=== PATIENT | female | born 1950 | race Caucasian/White ===

== ENCOUNTER 2017-06-04 05:55 | Day surgery (SDC) | payer MEDICARE, SELFPAY ==
[2017-06-04 06:43] VITALS: BP 107/73; PULSE 79; RESP 18; TEMP 36.9; O2SAT 95; BMI 41.8
[2017-06-04 06:55] LABS: Bedside Glucose 131 mg/dL (70-110)
--- NOTE | 2017-06-04 07:25 | PCM.DC.POD ---
Discharge Diet: Light diet - advance as tolerated Discharge Activity: May Not Drive Weight Bearing Status: No weight bearing - No weightbearing right foot Keep extremity elevated above heart level: Right Leg - Keep right foot elevated above chest level for at least 50 minutes of every hour Call your doctor if your incision/area has: Continuous Slow Oozing, Sudden Increased Bleeding, Foul Smelling Discharge Call your doctor if you observe: Fever of 101 or Higher, Coldness, Increased Pain, Shortness of breath, Chest pain, Increased palpitations (irregular heartbeat), Calf discomfort, Uncontrolled pain Cleanse incision/area with: Do not get Incision Wet, Keep Dressing Clean & Dry Allergies/Adverse Reactions: Allergies atropine sulfate [From ] Allergy (Verified 05/28/17 09:39) Rash famotidine [From Pepcid] Allergy (Verified 05/28/17 09:39) Rash hyoscyamine sulfate [From ] Allergy (Verified 05/28/17 09:39) Rash ibuprofen Allergy (Verified 06/04/17 06:41) Rash phenobarbital [From ] Allergy (Verified 05/28/17 09:39) Rash scopolamine hydrobromide [From ] Allergy (Verified 05/28/17 09:39) Rash ketorolac tromethamine [From Toradol] Adverse Reaction (Verified 05/28/17 09:39) Nausea rofecoxib [From Vioxx] Adverse Reaction (Verified 05/28/17 09:39) Nausea tramadol Adverse Reaction (Verified 05/28/17 09:39) Nausea Medications to take at Discharge Glimepiride [Amaryl] 4 mg PO BID 08/28/16 Levothyroxine [Synthroid] 100 mcg PO DAILY 08/28/16 Lisinopril [Zestril] 10 mg PO DAILY 08/28/16 Metformin HCl [Glucophage] 1,000 mg PO BIDCM 08/28/16 Oxycodone HCl/Acetaminophen [Percocet 10-325 mg Tablet] 1 tablet PO BID PRN 08/28/16 Simvastatin [Zocor] 20 mg PO QHS 08/28/16 Sitagliptin Phosphate [Januvia] 100 mg PO DAILY 08/28/16 Albuterol IH (ProAir) [Proair Hfa (SP)Vent Pts] 1 - 2 puff INHALATION Q6H PRN PRN 09/03/16 Fluticasone 110 Mcg [Flovent (SP)] 2 puff INHALATION BID 09/03/16 Pantoprazole Sodium [Protonix] 40 mg PO DAILY 09/03/16 Ferrous Sulfate [Iron] 325 mg PO DAILY 05/28/17 Oxycodone HCl/Acetaminophen [Percocet 5/325] 1 - 2 tab PO Q6H PRN PRN #30 tab 06/04/17 The following prescriptions were given: Oxycodone HCl/Acetaminophen [Percocet 5/325] 1 - 2 tab PO Q6H PRN PRN #30 tab PRN Reason: Pain Primary Care Physician: Luis Molina DO [Primary Care Provider] - Please Follow Up With: Pablo Olson DPM When: within 1 week or sooner if needed
[2017-06-04] MEDS: Cefazolin 2 GM in 0.9% Normal Saline 100 ML IV (07:26)
--- NOTE | 2017-06-04 07:29 | OP.PCM_ITS ---
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 Erica Ndiaye Type of Anesthesia:: Local MAC Specimen's removed: None Estimated Blood Loss (mL): < 1mL Description of Procedure: Indications: This is a 67 year old female with chronic right plantar heel pain at the level of the origin of the plantar fascia and infracalcaneal spur. This has been treated with extensive conservative/nonsurgical management, but she continues to have pain and symptoms. Xrays showed an infracalcaneal spur, and MRI confirmed plantar fasciitis. She continues to have pain which was really bothering her and affecting her daily activities. She has elected to undergo plantar fasciotomy with resection of the infracalcaneal spur. This was discussed with her in great detail, reviewed the possible benefits vs risks and potential complications. Typical post op recovery was reviewed with her. The goals and the expectations were reviewed with her in detail. The consent forms were reviewed with her in detail, and she freely signed them. No guarantees were given. All of her questions were answered. Operative Procedure: The patient was brought back into the operating room and was placed on the operating room table in the supine position. She was carefully secured to the operating room table with a safety belt around the waist. A time out was performed and the patient was properly identified and the surgical plan was confirmed. The patient received 2g of IV Cefazolin for antibiotic prophylaxis. A well padded pneumatic tourniquet was applied around the patient's right ankle. The patient received MAC anesthesia per the anesthesiologist. After the right foot was cleansed with 70% Isopropyl alcohol, 20mL of 0.5% Bupivacaine was given as a local nerve block around heel. The right foot was scrubbed, prepped, draped in the usual aseptic fashion. The right foot was elevated for 3 minutes and the right ankle pneumatic tourniquet was inflated to 250mmHg. The infracalcaneal spur was visualized on intra operative fluoroscopy, image was saved. A skin incision was made to the medial hindfoot at the level of the plantar fascia and infracalcaneal spur, careful dissection was completed down through the subcutaneous tissue layer. A plane was created superiorly and inferiorly around the plantar fascia and the medial 50% of the plantar fascia was released via a plantar fasciotomy. The infracalcaneal spur was felt, and was carefully resected using a powered rasp. Resection of the infracalcaneal spur was confirmed using intraoperative fluoroscopy. Images pre and post infracalcaneal spur resection were saved. The site was flushed out with copious amounts of normal saline solution. The skin was reapproximated using 3-0 Nylon. The pneumatic tourniquet was deflated ( total tourniquet time was 21 minutes), and there was immediate return of warmth and perfusion to the foot and to all toes on the foot with normal temperature gradient and CFT < 2 seconds to all toes. Hemostasis was achieved. A dressing was applied which consisted of Betadine soaked adaptic, 4x4 gauze, Kerlix and pauly bandage, being sure to apply it not to tight. The patient tolerated the above operative procedure well at the anesthesia well with no complication. The patient was transported to the recovery room with vital signs stable and in good condition. Post operative orders were placed. Post operative instructions were reviewed with her as well as with her who was here with her today. No weightbearing right foot, keep right foot elevated for at least 50 minutes of every hour, keep dressing clean, dry and intact. Prescription for Percocet 5mg/325mg was prescribed: 1-2 tabs PO q 6 hours PRN pain for pain control. She is to follow up with me within 1 week or sooner if needed. Grafts/Implants Used: None - Complications None
--- NOTE | 2017-06-04 07:30 | RAD_ITS ---
STUDY: X-RAY - RIGHT CALCANEUS REASON FOR EXAM: Female, 67 years old. Resection heel spur. TECHNIQUE: 1 view(s) of the calcaneus were obtained. COMPARISON: None. FINDINGS: There is mild cortical irregularity at the plantar margin of the posterior calcaneus, and some vague increased density in the adjacent soft tissues, consistent with given history of a plantar spur resection. There is small enthesophyte formation of the posterior superior calcaneus at the site of insertion of the Achilles tendon. No demonstrated acute fracture. RAD/Calcaneus min 2 Views IMPRESSION: Status post resection of plantar calcaneal spur. Electronically Signed: Miky Dotson MD at 12:43 EDT , Service support ,
[2017-06-04] MEDS: Bupivacaine Mpf 0.5% 30 ML VIAL (07:35)
[2017-06-04 08:18] VITALS: BP 107/73; BP 111/76; PULSE 82; RESP 16; TEMP 36.6; O2SAT 94
[2017-06-04 08:20] VITALS: BP 107/73; BP 111/78; PULSE 77; RESP 16; O2SAT 92
[2017-06-04 08:25] VITALS: BP 107/73; BP 113/70; PULSE 78; RESP 16; O2SAT 92
[2017-06-04 08:31] VITALS: BP 107/73; BP 119/80; PULSE 78; RESP 16; TEMP 36; O2SAT 96
[2017-06-04 09:22] VITALS: BP 107/73
== END 2017-06-04 09:24 | disposition home or self-care (01) ==
LOC: SDC 05:56 → AC 05:58
PROVIDERS: Family Provider Student in an Organized Health Care Education/Training Program; PCP Student in an Organized Health Care Education/Training Program; Visit Provider Podiatrist
PROC: (CPT 28119; principal; 2017-06-04 07:15)
DX: M72.2 Plantar fascial fibromatosis (principal); M77.31 Calcaneal spur, right foot; M06.80 Other specified rheumatoid arthritis, unspecified site; I10 Essential (primary) hypertension; J44.9 Chronic obstructive pulmonary disease, unspecified; E03.9 Hypothyroidism, unspecified; G47.33 Obstructive sleep apnea (adult) (pediatric); E78.5 Hyperlipidemia, unspecified; E55.9 Vitamin D deficiency, unspecified; G25.81 Restless legs syndrome; E11.65 Type 2 diabetes mellitus with hyperglycemia; E66.9 Obesity, unspecified; Z79.899 Other long term (current) drug therapy; Z79.84 Long term (current) use of oral hypoglycemic drugs; Z68.38 Body mass index [BMI] 38.0-38.9, adult; Z71.3 Dietary counseling and surveillance
CPT/HCPCS: 01480; 28119; 73650; 76000; 82962; J7120; J2405

== ENCOUNTER → 2017-07-08 18:06 | Outpatient (CLI) | payer MEDICARE, SELFPAY | PROVIDERS: Family Provider Student in an Organized Health Care Education/Training Program; PCP Student in an Organized Health Care Education/Training Program; Visit Provider Podiatrist | DX: L97.419 Non-pressure chronic ulcer of right heel and midfoot with unspecified severity (principal) | CPT/HCPCS: 87070; 87077; 87186; 87205 ==

== ENCOUNTER → 2017-07-09 17:25 | Emergency (ER) | payer MEDICARE, SELFPAY ==
--- NOTE | 2017-07-09 19:30 | RAD_ITS ---
STUDY: X-RAY - RIGHT FOOT CLINICAL: Female, 67 years old. Pain TECHNIQUE: Three view(s) of the foot were obtained. COMPARISON: Intraoperative calcaneus view dated June 04, 2017 FINDINGS: Bones: There is minimal cortical irregularity in the inferior calcaneus. Joints: There are mild degenerative changes in the midfoot. Soft tissues: There is mild soft tissue swelling in the hindfoot. There are faint calcific densities in the soft tissues below the calcaneus. Foreign body: None RAD/Foot min 3 Views IMPRESSION: There is mild cortical irregularity in the mid inferior calcaneus possibly related to the surgery, however osteomyelitis cannot be excluded. There are faint calcific densities in the soft tissues inferior to the calcaneus likely related to the recent surgery. Electronically Signed: Lyudmila Bell MD at 19:51 EDT Tel Direct: [phone], Service support ,
[2017-07-10 00:02] LABS: Probe Check PASS; Staph aureus DNA By PCR POSITIVE (Negative)
[2017-07-10 00:03] LABS: M R Staph aureus DNA By PCR POSITIVE (Negative)
[2017-07-10 01:37] LABS: Anion Gap 8 (5-15); BUN 16 mg/dL (7-18); CRP 3.49 mg/L (0.0-3.0); Calcium,Total 9.2 mg/dL (8.5-10.1); Chloride 103 mmol/L (98-107); Creatinine, Serum 0.84 mg/dL (0.55-1.02); EST Glomerular Filtration Rate 72 mL/min (>60); Est Glom Filt Rate - Afr Amer 87 mL/min (>60); Glucose 131 mg/dL (74-106); Potassium 4.1 mmol/L (3.5-5.1); Sodium Level 140 mmol/L (136-145)
--- NOTE | 2017-07-10 01:59 | ED.VISSUMM ---
- ER Visit Summary Date of Service: 07/10/17 Chief Complaint: Foot wound History of Present Illness: The patient is a 67 F sent in by her assistant professor of life sciences Dr. Olson for evaluation of wound on foot. She is 4 weeks postop on June 04 for plantar fasciitis with spur removal. She seen yesterday in the office, wound was evaluated, there was slightly delayed healing. Her assistant professor of life sciences did call in for discussion. States he had a culture performed of the wound noting gram-positive along with gram-negative findings. Patient called in reporting increasing pain in the foot. Patient denies fever. Patient is a diabetic. Physical Examination: General: Alert and oriented ?3, no acute distress HEENT: Normocephalic, atraumatic. Moist mucosa membranes Neck: supple, nontender. Cardiovascular: Regular rate and rhythm, no murmurs Respiratory: Normal breath sounds, symmetric, no distress Abdomen: Soft, nontender, nondistended Extremities: Right lower extremity: There is a 1 cm ulcer medial aspect of the heel. Mild erythema around this. There is no streaking. Tender to palpation around this region. Neuro: no focal neurological deficits. Test Results: ESR 37, CRP 3 0.49. Right foot x-ray per radiology mild cortical irregularity of the inferior calcaneus possibly related to surgery, however osteomyelitis cannot be excluded. Emergency Department Course and Treatment: Patient nontoxic. Secondary to downtime, delay in labs. Dr. Olson was in the ED to evaluate the patient. Obtain wound cultures. He clean the wound, place a dressing. Patient recommended started on Augmentin and doxycycline for coverage of bacteria found from Gram stain. Patient did not want to wait for CBC. Eventual culture did get called over positive for MRSA. She is on doxycycline. Per radiology read of x-ray irregular irregularity of the calcaneus, patient did have a bone spur removal. Patient will follow-up on Wednesday for outpatient reevaluation. Treatment Plan: [] Disposition: Discharge Impression: Postop wound infection with heel ulcer This note was generated with [employer] dictation software. It may contain incorrect words, spelling, and punctuation that were not noted in review of the chart prior to signing ED Disposition - Plan for ED Patient: Disposition: Home or Assisted Living Diagnosis: Postoperative wound infection, Heel ulcer Referrals: Luis Molina DO [Primary Care Provider] -
--- NOTE | 2017-07-10 02:04 | ED.DCSUM_ITS ---
- ER Visit Summary Date of Service: 07/10/17 Chief Complaint: Foot wound History of Present Illness: The patient is a 67 F sent in by her document control supervisor Dr. Olson for evaluation of wound on foot. She is 4 weeks postop on June 04 for plantar fasciitis with spur removal. She seen yesterday in the office, wound was evaluated, there was slightly delayed healing. Her document control supervisor did call in for discussion. States he had a culture performed of the wound noting gram- positive along with gram-negative findings. Patient called in reporting increasing pain in the foot. Patient denies fever. Patient is a diabetic. Physical Examination: General: Alert and oriented ?3, no acute distress HEENT: Normocephalic, atraumatic. Moist mucosa membranes Neck: supple, nontender. Cardiovascular: Regular rate and rhythm, no murmurs Respiratory: Normal breath sounds, symmetric, no distress Abdomen: Soft, nontender, nondistended Extremities: Right lower extremity: There is a 1 cm ulcer medial aspect of the heel. Mild erythema around this. There is no streaking. Tender to palpation around this region. Neuro: no focal neurological deficits. Test Results: ESR 37, CRP 3 0.49. Right foot x-ray per radiology mild cortical irregularity of the inferior calcaneus possibly related to surgery, however osteomyelitis cannot be excluded. Emergency Department Course and Treatment: Patient nontoxic. Secondary to downtime, delay in labs. Dr. Olson was in the ED to evaluate the patient. Obtain wound cultures. He clean the wound, place a dressing. Patient recommended started on Augmentin and doxycycline for coverage of bacteria found from Gram stain. Patient did not want to wait for CBC. Eventual culture did get called over positive for MRSA. She is on doxycycline. Per radiology read of x-ray irregular irregularity of the calcaneus, patient did have a bone spur removal. Patient will follow-up on Wednesday for outpatient reevaluation. Treatment Plan: [] Disposition: Discharge Impression: Postop wound infection with heel ulcer This note was generated with [employer] dictation software. It may contain incorrect words, spelling, and punctuation that were not noted in review of the chart prior to signing ED Disposition - Plan for ED Patient: Disposition: Home or Assisted Living Diagnosis: Postoperative wound infection, Heel ulcer Referrals: Luis Molina DO [Primary Care Provider] -
== END | disposition home or self-care (01) ==
PROVIDERS: Emergency Provider Emergency Medicine; Family Provider Student in an Organized Health Care Education/Training Program; PCP Student in an Organized Health Care Education/Training Program
DX: T81.4XXA Infection following a procedure, initial encounter (principal); L97.419 Non-pressure chronic ulcer of right heel and midfoot with unspecified severity; J45.909 Unspecified asthma, uncomplicated; E11.9 Type 2 diabetes mellitus without complications; G47.33 Obstructive sleep apnea (adult) (pediatric); Z90.89 Acquired absence of other organs; Z90.49 Acquired absence of other specified parts of digestive tract; Z90.710 Acquired absence of both cervix and uterus; Z79.84 Long term (current) use of oral hypoglycemic drugs; Z79.899 Other long term (current) drug therapy
CPT/HCPCS: 36415; 73630; 80048; 85652; 86140; 87040; 87070; 87075; 87077; 87186; 87205; 87640; 99284; A4216

== ENCOUNTER 2018-06-22 18:38 | Inpatient (IN) | payer MEDICARE, SELFPAY ==
[2018-06-22 18:39] VITALS: BP 155/100; PULSE 126; RESP 22; TEMP 36.9; O2SAT 96; BMI 39.2
--- NOTE | 2018-06-22 19:33 | CT_ITS ---
STUDY: CT ABDOMEN AND PELVIS WITHOUT CONTRAST REASON FOR EXAM: Female, 68 years old. Lower abdominal pain. RADIATION DOSAGE (If Supplied By Facility): CTDIvol = ( 28.26 ) mGy, DLP = ( 1475.48 ) mGycm TECHNIQUE: Transaxial images were obtained from the dome of the diaphragm to the symphysis pubis without oral contrast, and without intravenous contrast. Sagittal and coronal images were reconstructed. Individualized dose optimization techniques were used for this CT. COMPARISON: None. FINDINGS: There are bibasilar granulomas. There are coronary artery calcifications present. Normal liver. There is non-visualization of the gallbladder, which may be secondary to either contraction or a prior cholecystectomy. There are splenic granulomas. Normal pancreas. Normal bilateral adrenal glands. Normal right kidney. Normal left kidney. There is a small hiatal hernia. Normal small intestine. There is diverticulosis, with thickening of the descending colon wall, and pericolonic inflammation changes consistent with acute diverticulitis. There are foci of extraluminal air along the lateral aspect of the descending colon. No pericolonic abscesses are visualized. The appendix is visualized and appears normal. Normal abdominal aorta. Normal inferior vena cava. Normal retroperitoneum. Normal urinary bladder. Normal abdominal wall. There are diffuse degenerative changes of the visualized lumbar spine. CT/Abdomen/Pelvis without Cont IMPRESSION: Acute diverticulitis of the descending colon associated with extraluminal air consistent with bowel perforation. There is no associated abscess. Hiatal hernia. Atherosclerosis. N.B. : The above information has been verbally conveyed by Rabia Mckinney MD to Dr. Starla Cartwright MD, on 06/22/2018 20:34:36 (ET). Electronically Signed: Rabia Mckinney MD at 20:35 EDT Tel , Service support ,
[2018-06-22] MEDS: Ondansetron 4 MG/2 ML Vial IV (19:45)
[2018-06-22] MEDS: Morphine 4 MG/ML Syringe IV ×2 (19:47→23:42)
[2018-06-22] MEDS: 0.9% Normal Saline 1,000 ML 125 ML IV (19:48)
[2018-06-22 20:09] LABS: Anion Gap 8 (5-15); BUN 17 mg/dL (7-18); BUN/Creat Ratio 21.5 RATIO (10-20); Calcium,Total 9.4 mg/dL (8.5-10.1); Chloride 106 mmol/L (98-107); Creatinine, Serum 0.79 mg/dL (0.55-1.02); EST Glomerular Filtration Rate 76 mL/min (>60); Est Glom Filt Rate - Afr Amer 93 mL/min (>60); Estimated Creatinine Clearance 40.07 ml/min; Glucose 166 mg/dL (74-106); Sodium Level 139 mmol/L (136-145)
[2018-06-22 20:25] LABS: Absolute Lymphocyte Count 2.32 X10^3/ul (0.83-4.51); Absolute Neutrophil Count 16.9 X10^3/uL (2.0-7.7); Basophil# 0.02 X10^3/uL; Basophil% 0.1 % (0-1); Eosinophil# 1.05 X10^3/uL; Eosinophils% 4.9 % (0-5); Hematocrit 40.2 % (37-47); Hemoglobin 12.8 g/dl (12.0-15.0); Lymphocyte # 2.32 X10^3/ul (4.0); Lymphocyte % 10.8 % (19-41); Mean Corp Hgb Conc 31.8 g/gl (32-36); Mean Corpuscular Hgb 27.1 pg (27.0-32.0); Mean Platelet Vol. 12.2 fl (6.2-12.0); Monocyte% 5.6 % (0-10); Neutrophil # 16.86 X10^3/uL (2.7-7.7); Neutrophil % 78.4 % (47-70); Platelet Count 221 K/mm3 (150-450); RBC Distribution Width CV 14.8 % (11.6-14.6); RBC Distribution Width SD 45.8 fl (35.1-43.9); Red Blood Count 4.73 M/mm3 (4.2-5.4); White Blood Count 21.5 K/mm3 (4.4-11.0)
[2018-06-22 20:28] LABS: Differential Indicated SCAN CRITERIA MET; POSITIVE COUNT NO; POSITIVE DIFFERENTIAL NO; POSITIVE MORPHOLOGY YES
[2018-06-22 20:35] LABS: Lactic Acid 2.4 mmol/L (0.4-2.0)
--- NOTE | 2018-06-22 20:35 | ED.RN ---
lab called with critical lab results. Lactic acid 2.1. Dr. Cartwright made aware at this time
[2018-06-22 20:41] LABS: Platelet Estimate ADEQUATE (ADEQ); Red Cell Morphology NORM C+C NORMAL (NORM C&C)
[2018-06-22] MEDS: HYDROmorphone 1 MG/ML Syringe IV (20:51)
[2018-06-22 20:55] VITALS: BP 134/84
--- NOTE | 2018-06-22 21:11 | ED.DCSUM_ITS ---
- ER Visit Summary Date of Service: 06/22/18 Chief Complaint: [Abdominal pain] History of Present Illness: The patient is a 68 F [presents with abdominal pain that started around 2 PM today. Patient states the pain is continuous and rates it as a 10 out of 10. Patient had nausea but no vomiting. Patient's last bowel movement was 2 days ago. Patient denies any fever. She denies urinary symptoms. She denies chest pain. Patient does have a history of diabetes, hypertension, and hypothyroidism. Past surgical history includes appendectomy, cholecystectomy, hysterectomy, right lung surgery, bilateral knee replacements.] Physical Examination: [HEENT-PERRLA, EOMI. Cranial nerves II through XII grossly intact. TMs clear. Mucous membranes moist. No adenopathy. Cardiovascular-regular rate and rhythm without murmur or ectopy Lungs-clear to auscultation, chest wall stable without crepitus or subcu emphysema Abdomen-normoactive bowel sounds, soft. Patient has diffuse tenderness palpation over the lower abdomen with especially left lower quadrant with guarding. There is no rebound, rigidity, or perineal signs. Extremities-intact ?4, normal range of motion, normal pulses, atraumatic] Test Results: [CBC with differential showed a white count of 21.5, hemoglobin 12.8, hematocrit 40, placed 221. Chemistries are unremarkable. Lactate was 2.1. CT scan of the abdomen pelvis showed acute diverticulitis of the descending colon with extraluminal air consistent with colonic perforation.] Emergency Department Course and Treatment: [Case will be discussed with surgeon on-call Dr. Eliel Arias as well as with hospitalist. Patient was started on IV Cipro and Flagyl. Patient was medicated initially with morphine and Zofran and then was given a milligram of Dilaudid IV.] Treatment Plan: [Admit.] Disposition: [Admit] Impression: [Acute diverticulitis of the descending colon with microperforation] This note was generated with [employer] dictation software. It may contain incorrect words, spelling, and punctuation that were not noted in review of the chart prior to signing ED Disposition - Plan for ED Patient: Referrals: Luis Molina DO [Primary Care Provider] -
[2018-06-22] MEDS: Ciprofloxacin 400 MG/200 ML BAG 200 MG IV (21:14)
[2018-06-22 21:17] VITALS: O2SAT 89
[2018-06-22 21:18] VITALS: O2SAT 94
--- NOTE | 2018-06-22 21:35 | HP.PCM_ITS ---
Problem List (1) Perforation of sigmoid colon due to diverticulitis Status: Acute (2) COPD (chronic obstructive pulmonary disease) Status: Chronic Qualifiers: COPD type: unspecified COPD Qualified Code(s): J44.9 - Chronic obstructive pulmonary disease, unspecified (3) Obesity Status: Acute Qualifiers: Obesity type: due to excess calories Serious obesity comorbidity presence: unspecified whether serious comorbidity present (4) Diabetes mellitus type 2 in obese Status: Acute History of Present Illness Date of Admission: 06/22/18 The patient is a 68 year old F who presents to the emergency room with acute severe onset of left mid abdominal pain. This occurred approximately 2 PM. She denies any previous episode of diverticulitis. She states that within the past couple year she had a colonoscopy which was unremarkable. On her evaluation her white blood cell count is 21.5 with a hemoglobin 12.8 hematocrit 40.2 and platelet count of 221,000. 78% neutrophils. BUN is 17 and creatinine 0.79. Lactic acid is 2.4. Glucose is elevated at 166. A noncontrasted CT scan was obtained through the ER. Acute diverticulitis of the descending colon associated with external air consistent with perforation no associated abscess was noted. Hiatal hernia and atherosclerosis noted. I was asked to provide surgical care of the patient. She has had a previous hysterectomy through a Pfannenstiel incision. She has had previous appendectomy and cholecystectomy. She has had other orthopedic procedures as noted. Her last bowel movement was 2 days ago. She denies bright red blood per rectum or melena. She has not had any nausea or vomiting. Since receiving IV medication she is feeling improved. Past Medical History Past Medical History (Chronic Problems): Chronic Problems COPD (chronic obstructive pulmonary disease) (Chronic) Allergies atropine sulfate [From ] Allergy (Verified 06/22/18 18:41) Rash famotidine [From Pepcid] Allergy (Verified 06/22/18 18:41) Rash hyoscyamine sulfate [From ] Allergy (Verified 06/22/18 18:41) Rash ibuprofen Allergy (Verified 06/22/18 18:41) Rash phenobarbital [From ] Allergy (Verified 06/22/18 18:41) Rash scopolamine hydrobromide [From ] Allergy (Verified 06/22/18 18:41) Rash ketorolac tromethamine [From Toradol] Adverse Reaction (Verified 06/22/18 18:41) Nausea rofecoxib [From Vioxx] Adverse Reaction (Verified 06/22/18 18:41) Nausea tramadol Adverse Reaction (Verified 06/22/18 18:41) Nausea Home Medications: Ambulatory Orders Medication Instructions Recorded Glimepiride [Amaryl] 4 mg PO BID 08/28/16 Levothyroxine [Synthroid] 100 mcg PO DAILY 08/28/16 Lisinopril [Zestril] 10 mg PO DAILY 08/28/16 Metformin HCl [Glucophage] 1,000 mg PO BIDCM 08/28/16 Oxycodone HCl/Acetaminophen 1 tablet PO BID PRN 08/28/16 [Percocet 10-325 mg Tablet] Simvastatin [Zocor] 20 mg PO QHS 08/28/16 Sitagliptin Phosphate [Januvia] 100 mg PO DAILY 08/28/16 Albuterol IH (ProAir) [Proair Hfa 1 - 2 puff INHALATION Q6H PRN PRN 09/03/16 (SP)Vent Pts] Fluticasone 110 Mcg [Flovent (SP)] 2 puff INHALATION BID 09/03/16 Pantoprazole Sodium [Protonix] 40 mg PO DAILY 09/03/16 Ferrous Sulfate [Iron] 325 mg PO DAILY 05/28/17 Surgical History: appendectomy, cholecystectomy, hysterectomy, total hip arthroplasty, total knee arthroplasty, - - Subtotal thyroidectomy Smoking Status: Never smoker Tobacco Use: Non-smoker Alcohol: None Drugs: None Review of Systems Constitutional: Reports: Anorexia HEENT: Denies: Difficulty Swallowing Cardiovascular: Denies: Chest Pain Respiratory: Denies: Cough Gastrointestinal: Denies: Nausea, Vomiting Endocrine: Denies: Change in Body Habitus VTE Information - Inpt Only VTE Present on Admission: No Patient Problems: Active and Suspected Problems Perforation of sigmoid colon due to diverticulitis (Acute) Obesity (Acute) Diabetes mellitus type 2 in obese (Acute) - Physical Exam General: Alert, Oriented x3, Cooperative, No apparent distress HEENT: Atraumatic Oral: Moist Mucosa Neck: Supple, Negative Carotid Bruits Lungs: Clear to auscultation, Normal air movement Cardiovascular: Regular rate, Regular Rhythm Abdomen: Soft, Bowel Sounds Not Present, Tender - Notable tenderness even light palpation left mid abdomen with guarding and rebound, - - Obese Extremities: No Calf Tenderness Skin: No rashes Lymphatic: No Cervical, Supraclavicular, or Inguinal Adenopathy Psych/Mental Status: Normal Affect Vital Signs Temp Pulse Resp BP Pulse Ox 98.4 F 126 H 22 H 134/84 H 94 06/22/18 18:39 06/22/18 18:39 06/22/18 18:39 06/22/18 20:55 06/22/18 21:18 Oxygen Flow Rate (L/min) 2 Oxygen Delivery Method Nasal Cannula Weight: 207 lb 14.334 oz Body Mass Index (BMI) 39.2 Laboratory Tests Past 24 Hrs 06/22/18 06/22/18 06/22/18 19:30 19:30 19:47 WBC 21.5 H RBC 4.73 Hgb 12.8 Hct 40.2 MCV 85.0 MCH 27.1 MCHC 31.8 L RDW 14.8 H RDW Differential 45.8 H Plt Count 221 MPV 12.2 H Immature Gran % (Auto) 0.200 Neut % (Auto) 78.4 H Lymph % (Auto) 10.8 L [place] % (Auto) 5.6 Eos % (Auto) 4.9 Baso % (Auto) 0.1 Absolute Neuts (auto) 16.9 H Absolute Lymphs (auto) 2.32 Total Counted Not Reportable Diff Path Review May foll Platelet Estimate ADEQUATE RBC Morphology NORM C+C Sodium 139 Potassium 4.0 Chloride 106 Carbon Dioxide 25.0 Anion Gap 8 BUN 17 Creatinine 0.79 Estim Creat Clear Calc 40.07 Est GFR (MDRD) Af Amer 93 Est GFR (MDRD) Non-Af 76 BUN/Creatinine Ratio 21.5 H Glucose 166 H Lactic Acid 2.4 H Calcium 9.4 Assessment/Plan All Active Problems Perforation of sigmoid colon due to diverticulitis (Acute) Obesity (Acute) Diabetes mellitus type 2 in obese (Acute) I am recommending that the patient undergo medical care for microperforation of the descending colon secondary to diverticulitis. Patient will be kept n.p.o. Encourage mobilization. Appropriate antibiotics. She has already been placed on oxygen by emergency room staff. She would need attention to her COPD and to her diabetes. I anticipate serial surgical examination and repeat laboratory in the morning. Eliel Arias M.D., F.A.C.S.
--- NOTE | 2018-06-22 22:54 | EKG12_ITS ---
Test Reason : SOB Blood Pressure : / mmHG Vent. Rate : 100 BPM Atrial Rate : 100 BPM P-R Int : 148 ms QRS Dur : 088 ms QT Int : 350 ms P-R-T Axes : 065 013 016 degrees QTc Int : 451 ms Normal sinus rhythm Normal ECG When compared with ECG of 28-AUG-2016 11:35, No significant change was found Confirmed by SAMPSON ROBERTS, LEIGHANN ([id number]), dictionary editor MERRICK HERNANDEZ ([id number]) on 07/04/2018 5:24:54 PM Referred By: Eliel Arias Confirmed By:LEIGHANN BRADEN MD
[2018-06-22 23:00] VITALS: BMI 39.4
[2018-06-22 23:03] VITALS: BP 126/80; PULSE 108; RESP 18; TEMP 36.9; O2SAT 94
[2018-06-22 23:10] LABS: Bedside Glucose 200 mg/dL (70-110)
[2018-06-22 23:14] VITALS: BMI 39.4
[2018-06-22] MEDS: 0.9% NaCl Peripheral Flush Adult/Peds IV (23:35)
[2018-06-22] MEDS: Lactated Ringers 1,000 ML 125 ML IV (23:35)
[2018-06-22 23:54] LABS: Reflex Lactate? Y
[2018-06-23] VITALS (7 sets, daily range): BP systolic 97–121; BP diastolic 56–77; PULSE 92–99; RESP 14–18; TEMP 36.4–37.1; O2SAT 91–96
[2018-06-23 00:39] LABS: Lactic Acid 1.7 mmol/L (0.4-2.0)
[2018-06-23 01:33] LABS: Bacteria 0 SEEN /hpf (None Seen); Mucous, Urine 0 SEEN /hpf (<or=2+); Red Blood Cells-Urine 0 SEEN /hpf (0-5)
[2018-06-23 01:34] LABS: Color, Urine Yellow (Yellow); Glucose, Dipstick Normal (Normal); Ketone-Dipstick Negative (Negative); Leukocyte Esterase-Dipstick 25 /ul (Negative); Nitrite-Dipstick Negative (Negative); Occult Blood-Urine Negative /ul (Negative); Protein-Dipstick Negative (Negative); Specific Gravity, Urine 1.025 (1.002-1.030); Urine Bilirubin Dipstick Negative (Negative); Urine Clarity Sl. Cloudy (Clear); Urine Urobilinogen Normal (Normal)
[2018-06-23 01:49] LABS: Squamous Epithelial Cells - UA 0-5 SEEN /hpf (5-10); Transitional Epithelial - Ur 0 SEEN /hpf (0-5); White Blood Cells 0-5 SEEN /hpf (0-5)
[2018-06-23] MEDS: Morphine 4 MG/ML Syringe IV ×3 (04:53→09:50)
[2018-06-23 05:57] LABS: Basophil# 0.01 X10^3/uL; Basophil% 0.1 % (0-1); Eosinophil# 0.53 X10^3/uL; Eosinophils% 3.6 % (0-5); Hematocrit 36.2 % (37-47); Hemoglobin 11.2 g/dl (12.0-15.0); Lymphocyte % 12.8 % (19-41); Mean Corp Hgb Conc 30.9 g/gl (32-36); Mean Corpuscular Hgb 26.2 pg (27.0-32.0); Mean Corpuscular Volume 84.6 fL (81-99); Mean Platelet Vol. 11.8 fl (6.2-12.0); Monocyte% 8.8 % (0-10); Neutrophil % 74.4 % (47-70); Platelet Count 181 K/mm3 (150-450); RBC Distribution Width CV 14.9 % (11.6-14.6); RBC Distribution Width SD 45.5 fl (35.1-43.9); Red Blood Count 4.28 M/mm3 (4.2-5.4); White Blood Count 14.8 K/mm3 (4.4-11.0)
[2018-06-23 06:09] LABS: POSITIVE COUNT NO; POSITIVE DIFFERENTIAL NO; POSITIVE MORPHOLOGY NO
[2018-06-23] MEDS: Levothyroxine 100 MCG Tablet PO (06:14)
--- NOTE | 2018-06-23 06:14 | PCM.PN.SRG ---
Patient Problems: Active and Suspected Problems Perforation of sigmoid colon due to diverticulitis (Acute) Obesity (Acute) Diabetes mellitus type 2 in obese (Acute) Subjective: Pt has not been OOB. States she feels her abdomen pushing up on her lungs States abdominal pain slightly improved - Physical Exam General: Alert, Oriented x3 Lungs: Diminished - in bases Abdomen: Soft, Obese, Tender - left mid abdomen Non specific BS Vital Signs Temp Pulse Resp BP Pulse Ox 98.4 F 99 18 121/76 H 95 06/23/18 04:55 06/23/18 04:55 06/23/18 04:55 06/23/18 04:55 06/23/18 04:55 Oxygen Flow Rate (L/min) 2 Oxygen Delivery Method Room Air Weight: 208 lb 12.444 oz Body Mass Index (BMI) 39.4 Laboratory Tests Past 24 Hrs 06/22/18 06/22/18 06/22/18 19:30 19:30 19:47 WBC 21.5 H RBC 4.73 Hgb 12.8 Hct 40.2 MCV 85.0 MCH 27.1 MCHC 31.8 L RDW 14.8 H RDW Differential 45.8 H Plt Count 221 MPV 12.2 H Immature Gran % (Auto) 0.200 Neut % (Auto) 78.4 H Lymph % (Auto) 10.8 L [place] % (Auto) 5.6 Eos % (Auto) 4.9 Baso % (Auto) 0.1 Absolute Neuts (auto) 16.9 H Absolute Lymphs (auto) 2.32 Total Counted Not Reportable Diff Path Review May foll Platelet Estimate ADEQUATE RBC Morphology NORM C+C Sodium 139 Potassium 4.0 Chloride 106 Carbon Dioxide 25.0 Anion Gap 8 BUN 17 Creatinine 0.79 Estim Creat Clear Calc 40.07 Est GFR (MDRD) Af Amer 93 Est GFR (MDRD) Non-Af 76 BUN/Creatinine Ratio 21.5 H Glucose 166 H Lactic Acid 2.4 H Calcium 9.4 Urine Color Urine Clarity Urine pH Ur Specific [place] Urine Protein Urine Glucose (UA) Urine Ketones Urine Occult Blood Urine Nitrite Urine Bilirubin Urine Urobilinogen Ur Leukocyte Esterase Urine RBC Urine WBC Ur Squamous Epith Cells Ur Transition Epith Cell Urine Bacteria Urine Mucus 06/23/18 06/23/18 06/23/18 00:09 01:23 05:42 WBC 14.8 H RBC 4.28 Hgb 11.2 L Hct 36.2 L MCV 84.6 MCH 26.2 L MCHC 30.9 L RDW 14.9 H RDW Differential 45.5 H Plt Count 181 MPV 11.8 Immature Gran % (Auto) 0.300 Neut % (Auto) 74.4 H Lymph % (Auto) 12.8 L [place] % (Auto) 8.8 Eos % (Auto) 3.6 Baso % (Auto) 0.1 Absolute Neuts (auto) 11.0 H Absolute Lymphs (auto) 1.90 Total Counted Not Reportable Diff Path Review Platelet Estimate RBC Morphology Sodium Potassium Chloride Carbon Dioxide Anion Gap BUN Creatinine Estim Creat Clear Calc Est GFR (MDRD) Af Amer Est GFR (MDRD) Non-Af BUN/Creatinine Ratio Glucose Lactic Acid 1.7 Calcium Urine Color Yellow Urine Clarity Sl. Cloudy Urine pH 5.0 Ur Specific [place] 1.025 Urine Protein Negative Urine Glucose (UA) Normal Urine Ketones Negative Urine Occult Blood Negative Urine Nitrite Negative Urine Bilirubin Negative Urine Urobilinogen Normal Ur Leukocyte Esterase 25 H Urine RBC 0 SEEN Urine WBC 0-5 SEEN Ur Squamous Epith Cells 0-5 SEEN Ur Transition Epith Cell 0 SEEN Urine Bacteria 0 SEEN Urine Mucus 0 SEEN 06/23/18 05:42 WBC RBC Hgb Hct MCV MCH MCHC RDW RDW Differential Plt Count MPV Immature Gran % (Auto) Neut % (Auto) Lymph % (Auto) [place] % (Auto) Eos % (Auto) Baso % (Auto) Absolute Neuts (auto) Absolute Lymphs (auto) Total Counted Diff Path Review Platelet Estimate RBC Morphology Sodium Pending Potassium Pending Chloride Pending Carbon Dioxide Pending Anion Gap Pending BUN Pending Creatinine Pending Estim Creat Clear Calc Est GFR (MDRD) Af Amer Pending Est GFR (MDRD) Non-Af Pending BUN/Creatinine Ratio Pending Glucose Pending Lactic Acid Calcium Pending Urine Color Urine Clarity Urine pH Ur Specific [place] Urine Protein Urine Glucose (UA) Urine Ketones Urine Occult Blood Urine Nitrite Urine Bilirubin Urine Urobilinogen Ur Leukocyte Esterase Urine RBC Urine WBC Ur Squamous Epith Cells Ur Transition Epith Cell Urine Bacteria Urine Mucus POC Glucose 06/22/18 23:02 POC Glucose 200 H Medical Necessity - Tobacco Use Smoking Status: Never smoker Tobacco Use: Non-smoker Assessment/Plan All Active Problems Perforation of sigmoid colon due to diverticulitis (Acute) Obesity (Acute) Diabetes mellitus type 2 in obese (Acute) Needs to mobilize Labs pending Will need to check on hospitalist consult to have been placed by Dr Singh
[2018-06-23 06:16] LABS: Anion Gap 6 (5-15); BUN 14 mg/dL (7-18); BUN/Creat Ratio 18.6 RATIO (10-20); Calcium,Total 8.7 mg/dL (8.5-10.1); Chloride 106 mmol/L (98-107); Creatinine, Serum 0.75 mg/dL (0.55-1.02); EST Glomerular Filtration Rate 81 mL/min (>60); Est Glom Filt Rate - Afr Amer 98 mL/min (>60); Estimated Creatinine Clearance 40.07 ml/min; Glucose 175 mg/dL (74-106); Potassium 4.1 mmol/L (3.5-5.1); Sodium Level 139 mmol/L (136-145)
[2018-06-23 06:35] LABS: Bedside Glucose 168 mg/dL (70-110)
[2018-06-23] MEDS: Budesonide Respules 0.5 MG/2 ML AMPUL.NEB. INHALATION ×2 (06:50→19:39)
[2018-06-23] MEDS: 0.9% NaCl Peripheral Flush Adult/Peds IV ×2 (06:52→14:26)
[2018-06-23] MEDS: Lactated Ringers 1,000 ML 80 ML IV ×2 (07:46→20:54)
[2018-06-23] MEDS: Pantoprazole Sodium 40 MG Tablet PO (09:50)
[2018-06-23] MEDS: Lisinopril 10 MG Tablet PO (09:50)
[2018-06-23 11:22] LABS: Pathologist Review Reviewed
[2018-06-23 12:45] LABS: Bedside Glucose 126 mg/dL (70-110)
--- NOTE | 2018-06-23 12:49 | PCM.PN.HOSP ---
Patient Problems: Active and Suspected Problems Perforation of sigmoid colon due to diverticulitis (Acute) Obesity (Acute) Diabetes mellitus type 2 in obese (Acute) Subjective: 68-year-old female with a history of COPD, DM 2, GERD, HTN, HLD presenting with left-sided abdominal pain that started 2 PM yesterday, her last colonoscopy was 2 years ago. She did have a leukocytosis as well as lactic acid of 2.4 on admission and in the ER CT scan was obtained that showed acute diverticulitis of the descending colon with an external air consistent with perforation. She states that she is feeling better and currently not an operative candidate for microperforation will be managed medically. Medicine was consulted to assist managing with her COPD and her diabetes. Is feeling much better, her pain is fairly well controlled and she is able to ambulate fairly well. Vitals/I&O's: Vital Signs Temp Pulse Resp BP Pulse Ox 98.8 F 97 18 106/77 96 06/23/18 09:45 06/23/18 09:45 06/23/18 09:45 06/23/18 09:45 06/23/18 09:45 Oxygen Flow Rate (L/min) 2 Oxygen Delivery Method Room Air Weight: 208 lb 12.444 oz Body Mass Index (BMI) 39.4 Intake and Output for Last 24 Hours 06/21/18 06/22/18 06/23/18 23:59 23:59 23:59 Intake Total 1027 / 1027 Output Total 800 / 800 Balance 227 / 227 General: Alert, Oriented x3, Cooperative, No apparent distress HEENT: Atraumatic, PERRLA, EOMI, Normocephalic Oral: Moist Mucosa Neck: Supple, No JVD, Trachea Midline Lungs: Clear to auscultation, Normal air movement, No rhonchi, No wheeze, No rales Cardiovascular: Regular rate, Regular Rhythm, Normal S1, Normal S2, No murmurs Abdomen: Soft, Non-Distended, No Hepato-splenomegaly, Obese, Tender - Mild on the left Extremities: No edema, Capillary Refill Less than 3 Seconds Skin: No rashes, No breakdown Neurological: Neuro grossly intact, Sensory exam intact to light touch and pain Psych/Mental Status: Normal Affect, Appropriate Laboratory Results 06/22/18 19:30: WBC 21.5 H, RBC 4.73, Hgb 12.8, Hct 40.2, MCV 85.0, MCH 27.1, MCHC 31.8 L, RDW 14.8 H, RDW Differential 45.8 H, Plt Count 221, MPV 12.2 H, Immature Gran % (Auto) 0.200, Neut % (Auto) 78.4 H, Lymph % (Auto) 10.8 L, [place] % (Auto) 5.6, Eos % (Auto) 4.9, Baso % (Auto) 0.1, Absolute Neuts (auto) 16.9 H, Absolute Lymphs (auto) 2.32, Total Counted Not Reportable, Diff Path Review Reviewed, Platelet Estimate ADEQUATE, RBC Morphology NORM C+C 06/22/18 19:30: Sodium 139, Potassium 4.0, Chloride 106, Carbon Dioxide 25.0, Anion Gap 8, BUN 17, Creatinine 0.79, Estim Creat Clear Calc 40.07, Est GFR (MDRD) Af Amer 93, Est GFR (MDRD) Non-Af 76, BUN/Creatinine Ratio 21.5 H, Glucose 166 H, Calcium 9.4 06/22/18 19:47: Lactic Acid 2.4 H 06/22/18 23:02: POC Glucose 200 H 06/23/18 00:09: Lactic Acid 1.7 06/23/18 01:23: Urine Color Yellow, Urine Clarity Sl. Cloudy, Urine pH 5.0, Ur Specific [place] 1.025, Urine Protein Negative, Urine Glucose (UA) Normal, Urine Ketones Negative, Urine Occult Blood Negative, Urine Nitrite Negative, Urine Bilirubin Negative, Urine Urobilinogen Normal, Ur Leukocyte Esterase 25 H, Urine RBC 0 SEEN, Urine WBC 0-5 SEEN, Ur Squamous Epith Cells 0-5 SEEN, Ur Transition Epith Cell 0 SEEN, Urine Bacteria 0 SEEN, Urine Mucus 0 SEEN 06/23/18 05:42: WBC 14.8 H, RBC 4.28, Hgb 11.2 L, Hct 36.2 L, MCV 84.6, MCH 26.2 L, MCHC 30.9 L, RDW 14.9 H, RDW Differential 45.5 H, Plt Count 181, MPV 11.8, Immature Gran % (Auto) 0.300, Neut % (Auto) 74.4 H, Lymph % (Auto) 12.8 L, [place] % (Auto) 8.8, Eos % (Auto) 3.6, Baso % (Auto) 0.1, Absolute Neuts (auto) 11.0 H, Absolute Lymphs (auto) 1.90, Total Counted Not Reportable 06/23/18 05:42: Sodium 139, Potassium 4.1, Chloride 106, Carbon Dioxide 27.0, Anion Gap 6, BUN 14, Creatinine 0.75, Estim Creat Clear Calc 40.07, Est GFR (MDRD) Af Amer 98, Est GFR (MDRD) Non-Af 81, BUN/Creatinine Ratio 18.6, Glucose 175 H, Calcium 8.7 06/23/18 06:25: POC Glucose 168 H 06/23/18 12:02: POC Glucose 126 H Current Medications Acetaminophen (Tylenol) 650 mg PO Q6H PRN PRN PRN Reason: PAIN Albuterol Sulfate (Ventolin Aerosols) 2.5 mg INHALATION Q4H PRN PRN PRN Reason: COPD Atorvastatin Calcium (Lipitor) 10 mg PO QHS [facility] Last Admin: 06/22/18 23:35 Dose: Not Given Budesonide (Pulmicort Aerosol) 0.5 mg INHALATION Q12H.RT [facility] Last Admin: 06/23/18 06:50 Dose: 0.5 mg Piperacillin Sod/Tazobactam (Sod 3.375 gm/ Sodium Chloride) 50 mls @ 12.5 mls/hr IV Q8 [facility] Last Admin: 06/23/18 06:14 Dose: 12.5 mls/hr Sodium Chloride () 250 mls @ 15 mls/hr IV .[id number] PRN PRN Reason: SALINE FLUSH Lactated Ringer's () 1,000 mls @ 80 mls/hr IV .[id number] [facility] Last Admin: 06/23/18 07:46 Dose: 80 mls/hr Levothyroxine Sodium (Synthroid) 100 mcg PO DAILY@0600 [facility] Last Admin: 06/23/18 06:14 Dose: 100 mcg Lisinopril (Zestril) 10 mg PO DAILY [facility] Last Admin: 06/23/18 09:50 Dose: 10 mg Morphine Sulfate () 2 - 4 mg IV Q2H PRN PRN PRN Reason: PAIN Morphine Sulfate () 2 - 4 mg IV Q2H PRN PRN PRN Reason: PAIN Last Admin: 06/23/18 09:50 Dose: 4 mg Ondansetron HCl (Zofran) 4 mg IV Q8H PRN PRN PRN Reason: nausea Pantoprazole Sodium (Protonix) 40 mg PO DAILY [facility] Last Admin: 06/23/18 09:50 Dose: 40 mg Sodium Chloride () 5 - 15 ml IV UD PRN PRN Reason: SALINE FLUSH Last Admin: 06/23/18 06:52 Dose: 10 ml Medical Necessity - Tobacco Use Smoking Status: Never smoker Tobacco Use: Non-smoker Assessment/Plan All Active Problems Perforation of sigmoid colon due to diverticulitis (Acute) Obesity (Acute) Diabetes mellitus type 2 in obese (Acute) 1. Acute diverticulitis with microperforation -Continue pain medication as well as Zosyn per primary -We will continue to monitor with low threshold for surgical intervention -LR at 80 cc/h 2. COPD -Does not be currently in exacerbation -We will continue to monitor and continue with her home inhalers 3. DM 2 -She is currently n.p.o., -will hold her metformin, Januvia and her glimepiride -place her on sliding scale insulin with Accu-Cheks every 4 while n.p.o. 4. Hypothyroidism -Stable -Continue with Synthroid 5. GERD -Stable -Continue with PPI 6. HTN/HLD -Blood pressure is stable -Continue with lisinopril, and simvastatin. DVT: SCDs Code Visit Inpatient E&M: 44713 Subs Hosp L3
--- NOTE | 2018-06-23 12:56 | PN_ITS ---
Patient Problems: Active and Suspected Problems Perforation of sigmoid colon due to diverticulitis (Acute) Obesity (Acute) Diabetes mellitus type 2 in obese (Acute) Subjective: 68-year-old female with a history of COPD, DM 2, GERD, HTN, HLD presenting with left-sided abdominal pain that started 2 PM yesterday, her last colonoscopy was 2 years ago. She did have a leukocytosis as well as lactic acid of 2.4 on admission and in the ER CT scan was obtained that showed acute diverticulitis of the descending colon with an external air consistent with perforation. She states that she is feeling better and currently not an operative candidate for microperforation will be managed medically. Medicine was consulted to assist managing with her COPD and her diabetes. Is feeling much better, her pain is fairly well controlled and she is able to ambulate fairly well. Vitals/I&O's: Vital Signs Temp Pulse Resp BP Pulse Ox 98.8 F 97 18 106/77 96 06/23/18 09:45 06/23/18 09:45 06/23/18 09:45 06/23/18 09:45 06/23/18 09:45 Oxygen Flow Rate (L/min) 2 Oxygen Delivery Method Room Air Weight: 208 lb 12.444 oz Body Mass Index (BMI) 39.4 Intake and Output for Last 24 Hours 06/21/18 06/22/18 06/23/18 23:59 23:59 23:59 Intake Total 1027 / 1027 Output Total 800 / 800 Balance 227 / 227 General: Alert, Oriented x3, Cooperative, No apparent distress HEENT: Atraumatic, PERRLA, EOMI, Normocephalic Oral: Moist Mucosa Neck: Supple, No JVD, Trachea Midline Lungs: Clear to auscultation, Normal air movement, No rhonchi, No wheeze, No rales Cardiovascular: Regular rate, Regular Rhythm, Normal S1, Normal S2, No murmurs Abdomen: Soft, Non-Distended, No Hepato-splenomegaly, Obese, Tender - Mild on the left Extremities: No edema, Capillary Refill Less than 3 Seconds Skin: No rashes, No breakdown Neurological: Neuro grossly intact, Sensory exam intact to light touch and pain Psych/Mental Status: Normal Affect, Appropriate Laboratory Results 06/22/18 19:30: WBC 21.5 H, RBC 4.73, Hgb 12.8, Hct 40.2, MCV 85.0, MCH 27.1, MCHC 31.8 L, RDW 14.8 H, RDW Differential 45.8 H, Plt Count 221, MPV 12.2 H, Immature Gran % (Auto) 0.200, Neut % (Auto) 78.4 H, Lymph % (Auto) 10.8 L, [place] % (Auto) 5.6, Eos % (Auto) 4.9, Baso % (Auto) 0.1, Absolute Neuts (auto) 16.9 H, Absolute Lymphs (auto) 2.32, Total Counted Not Reportable, Diff Path Review Reviewed, Platelet Estimate ADEQUATE, RBC Morphology NORM C+C 06/22/18 19:30: Sodium 139, Potassium 4.0, Chloride 106, Carbon Dioxide 25.0, Anion Gap 8, BUN 17, Creatinine 0.79, Estim Creat Clear Calc 40.07, Est GFR (MDRD) Af Amer 93, Est GFR (MDRD) Non-Af 76, BUN/Creatinine Ratio 21.5 H, Glucose 166 H, Calcium 9.4 06/22/18 19:47: Lactic Acid 2.4 H 06/22/18 23:02: POC Glucose 200 H 06/23/18 00:09: Lactic Acid 1.7 06/23/18 01:23: Urine Color Yellow, Urine Clarity Sl. Cloudy, Urine pH 5.0, Ur Specific [place] 1.025, Urine Protein Negative, Urine Glucose (UA) Normal, Urine Ketones Negative, Urine Occult Blood Negative, Urine Nitrite Negative, Urine Bilirubin Negative, Urine Urobilinogen Normal, Ur Leukocyte Esterase 25 H, Urine RBC 0 SEEN, Urine WBC 0-5 SEEN, Ur Squamous Epith Cells 0-5 SEEN, Ur Transition Epith Cell 0 SEEN, Urine Bacteria 0 SEEN, Urine Mucus 0 SEEN 06/23/18 05:42: WBC 14.8 H, RBC 4.28, Hgb 11.2 L, Hct 36.2 L, MCV 84.6, MCH 26.2 L, MCHC 30.9 L, RDW 14.9 H, RDW Differential 45.5 H, Plt Count 181, MPV 11.8, Immature Gran % (Auto) 0.300, Neut % (Auto) 74.4 H, Lymph % (Auto) 12.8 L, [place] % (Auto) 8.8, Eos % (Auto) 3.6, Baso % (Auto) 0.1, Absolute Neuts (auto) 11.0 H, Absolute Lymphs (auto) 1.90, Total Counted Not Reportable 06/23/18 05:42: Sodium 139, Potassium 4.1, Chloride 106, Carbon Dioxide 27.0, Anion Gap 6, BUN 14, Creatinine 0.75, Estim Creat Clear Calc 40.07, Est GFR (MDRD) Af Amer 98, Est GFR (MDRD) Non-Af 81, BUN/Creatinine Ratio 18.6, Glucose 175 H, Calcium 8.7 06/23/18 06:25: POC Glucose 168 H 06/23/18 12:02: POC Glucose 126 H Current Medications Acetaminophen (Tylenol) 650 mg PO Q6H PRN PRN PRN Reason: PAIN Albuterol Sulfate (Ventolin Aerosols) 2.5 mg INHALATION Q4H PRN PRN PRN Reason: COPD Atorvastatin Calcium (Lipitor) 10 mg PO QHS [facility] Last Admin: 06/22/18 23:35 Dose: Not Given Budesonide (Pulmicort Aerosol) 0.5 mg INHALATION Q12H.RT [facility] Last Admin: 06/23/18 06:50 Dose: 0.5 mg Piperacillin Sod/Tazobactam (Sod 3.375 gm/ Sodium Chloride) 50 mls @ 12.5 mls/hr IV Q8 [facility] Last Admin: 06/23/18 06:14 Dose: 12.5 mls/hr Sodium Chloride () 250 mls @ 15 mls/hr IV .[id number] PRN PRN Reason: SALINE FLUSH Lactated Ringer's () 1,000 mls @ 80 mls/hr IV .[id number] [facility] Last Admin: 06/23/18 07:46 Dose: 80 mls/hr Levothyroxine Sodium (Synthroid) 100 mcg PO DAILY@0600 [facility] Last Admin: 06/23/18 06:14 Dose: 100 mcg Lisinopril (Zestril) 10 mg PO DAILY [facility] Last Admin: 06/23/18 09:50 Dose: 10 mg Morphine Sulfate () 2 - 4 mg IV Q2H PRN PRN PRN Reason: PAIN Morphine Sulfate () 2 - 4 mg IV Q2H PRN PRN PRN Reason: PAIN Last Admin: 06/23/18 09:50 Dose: 4 mg Ondansetron HCl (Zofran) 4 mg IV Q8H PRN PRN PRN Reason: nausea Pantoprazole Sodium (Protonix) 40 mg PO DAILY [facility] Last Admin: 06/23/18 09:50 Dose: 40 mg Sodium Chloride () 5 - 15 ml IV UD PRN PRN Reason: SALINE FLUSH Last Admin: 06/23/18 06:52 Dose: 10 ml Medical Necessity - Tobacco Use Smoking Status: Never smoker Tobacco Use: Non-smoker Assessment/Plan All Active Problems Perforation of sigmoid colon due to diverticulitis (Acute) Obesity (Acute) Diabetes mellitus type 2 in obese (Acute) 1. Acute diverticulitis with microperforation -Continue pain medication as well as Zosyn per primary -We will continue to monitor with low threshold for surgical intervention -LR at 80 cc/h 2. COPD -Does not be currently in exacerbation -We will continue to monitor and continue with her home inhalers 3. DM 2 -She is currently n.p.o., -will hold her metformin, Januvia and her glimepiride -place her on sliding scale insulin with Accu-Cheks every 4 while n.p.o. 4. Hypothyroidism -Stable -Continue with Synthroid 5. GERD -Stable -Continue with PPI 6. HTN/HLD -Blood pressure is stable -Continue with lisinopril, and simvastatin. DVT: SCDs Code Visit Inpatient E&M: 98905 Subs Hosp L3
[2018-06-23 14:35] LABS: Bedside Glucose 141 mg/dL (70-110)
--- NOTE | 2018-06-23 14:50 | CASEMGMT ---
Addendum entered by Juan Alberto Newman 06/24/18 08:03: 06/23/18: 1450. Call received from pt's Sussy Munoz CM. Clinical update provided. CM to fax discharge summary on discharge. Sussy Munoz CM: PH: [phone] Original Note: RN CM SHEET METAL INSULATOR CM to room to meet with patient for initial transition planning/care coordination assessment. RN REBECA introduced self and role at [facility]. Pt voices understanding and consents to assessment at this time. Pt resting in bed in no distress at this time. Pt is A/O at this time and answers all questions appropriately. Care providers, pharmacy, and demographics verified/updated at this time. PCP: Luis Molina Specialists: Denies Preferred Pharmacy: [facility] Insurance: My Jacqueline Munoz Prescription Benefit: Yes Living Will/HPOA: Pt does not currently have LW/HCPOA and declines info at this time LNOK: Living Arrangements: Lives with in one-story home. 3 steps to enter with rails on both sides. Denies difficulty. Independent. Transportation: Pt states drives self and states no transportation concerns at this time. able to drive her home on d/c. DME: States has the following DME: CPAP that she got thru [employer]. States she has not made arrangements to switch to another DME company yet. Has the following but does not use: 3 canes, walker. Pt states no need for further DME at this time. HHC/SNF: No history of either. Denies needs and no needs identified. Pt wishes to return home and states has no concerns with going home at time of discharge. Pt states does not smoke or drink ETOH. CM to follow for any discharge planning/needs. Pt voices no further concerns/needs at this time. Advised pt to ask for CM if any further questions/concerns/needs arise. Voices understanding. PLAN: Home with spousal support and discharge plans in place. Mitch SALMERON RN, CM
--- NOTE | 2018-06-23 15:49 | CHAPLAIN ---
Type of Pastoral Visit _x__ Initial Visit ___ Follow-up Visit ___ On-call Visit ___ General Patient Visit ___ Spiritual Assessment ___ Family Conference ___ Bereavement ___ Rapid Response ___ Code Blue ___ Other (describe below) Pastoral Care Referral From _x__ Patient ___ Family ___ Nurse ___ Physician ___ Vehicle Assembler ___ Traffic Expert ___ Other (describe below) Sacrament/Intervention _x__ Active listening ___ Anointing ___ Yazidi ___ Bereavement ___ Communion ___ Georgette exploration ___ ___ Life review _x__ Prayer ___ Reconciliation ___ Sacrament of Sick ___ Supportive presence ___ Wedding ___ Other (describe below) Pastoral Comments
[2018-06-23] MEDS: Morphine 2 MG/ML Syringe IV ×2 (17:06→20:12)
[2018-06-23 18:26] LABS: Bedside Glucose 138 mg/dL (70-110)
--- NOTE | 2018-06-23 18:46 | PCM.PN.BLA ---
Progress Note Pt is much improved, very little pain at rest She is OOB to chair and has been ambulating I will keep sip/chips tonight and recheck labs in a.m. Hopefully can start clears tomorrow I will sign out to Dr Ramirez in the a.m. R Cebul
[2018-06-23] MEDS: Albuterol 2.5 MG/3 ML VIAL.NEB. INHALATION (19:39)
[2018-06-23] MEDS: Atorvastatin Calcium 10 MG Tablet PO (21:52)
[2018-06-23 21:56] LABS: Bedside Glucose 148 mg/dL (70-110)
[2018-06-24] VITALS (7 sets, daily range): BP systolic 121–146; BP diastolic 67–87; PULSE 93–99; RESP 16–20; TEMP 37–37.6; O2SAT 92–95
[2018-06-24] MEDS: Morphine 2 MG/ML Syringe IV ×3 (02:27→20:01)
[2018-06-24 02:35] LABS: Bedside Glucose 139 mg/dL (70-110)
[2018-06-24] MEDS: Levothyroxine 100 MCG Tablet PO (06:26)
[2018-06-24] MEDS: Morphine 4 MG/ML Syringe IV (06:36)
[2018-06-24] MEDS: 0.9% NaCl Peripheral Flush Adult/Peds IV (06:36)
[2018-06-24 06:37] LABS: Bedside Glucose 124 mg/dL (70-110)
[2018-06-24 06:41] LABS: Absolute Lymphocyte Count 1.98 X10^3/ul (0.83-4.51); Absolute Neutrophil Count 11.3 X10^3/uL (2.0-7.7); Basophil# 0.01 X10^3/uL; Basophil% 0.1 % (0-1); Eosinophil# 1.15 X10^3/uL; Eosinophils% 7.4 % (0-5); Hemoglobin 10.6 g/dl (12.0-15.0); Lymphocyte # 1.98 X10^3/ul (4.0); Lymphocyte % 12.7 % (19-41); Mean Corp Hgb Conc 31.2 g/gl (32-36); Mean Corpuscular Hgb 27.1 pg (27.0-32.0); Mean Platelet Vol. 11.4 fl (6.2-12.0); Monocyte# 1.17 X10^3/uL; Monocyte% 7.5 % (0-10); Neutrophil # 11.26 X10^3/uL (2.7-7.7); Platelet Count 172 K/mm3 (150-450); RBC Distribution Width CV 15.5 % (11.6-14.6); RBC Distribution Width SD 49.8 fl (35.1-43.9); Red Blood Count 3.91 M/mm3 (4.2-5.4); White Blood Count 15.6 K/mm3 (4.4-11.0)
--- NOTE | 2018-06-24 06:45 | PCM.PN.SRG ---
Patient Problems: Active and Suspected Problems Perforation of sigmoid colon due to diverticulitis (Acute) Obesity (Acute) Diabetes mellitus type 2 in obese (Acute) Subjective: Patient reports she is still having some left lower quadrant pain but she reports that is improved. She is passing flatus no nausea or vomiting. - Physical Exam General: Alert, Oriented x3 Lungs: Normal air movement Abdomen: Soft, Non-Distended, Tender - Patient is tender in the left lower quadrant especially to deep palpation. No guarding but she has significant tenderness. The rest the abdomen is nontender. Vital Signs Temp Pulse Resp BP Pulse Ox 99.2 F H 99 18 121/69 H 92 06/24/18 02:20 06/24/18 02:20 06/24/18 02:20 06/24/18 02:20 06/24/18 02:20 Oxygen Flow Rate (L/min) 2 Oxygen Delivery Method Room Air Weight: 208 lb 12.444 oz Body Mass Index (BMI) 39.4 Intake and Output for Last 24 Hours 06/22/18 06/23/18 06/24/18 23:59 23:59 23:59 Intake Total 1794 / 1794 1284 / 1284 Output Total 1500 / 1500 1100 / 1100 Balance 294 / 294 184 / 184 Laboratory Tests Past 24 Hrs 06/22/18 06/24/18 19:30 06:20 WBC Pending RBC Pending Hgb Pending Hct Pending MCV Pending MCH Pending MCHC Pending RDW Pending RDW Differential Pending Plt Count Pending Neut % (Auto) Pending Absolute Neuts (auto) Pending Total Counted Pending Diff Path Review Reviewed POC Glucose 06/24/18 06/24/18 06/23/18 06:24 02:20 21:49 POC Glucose 124 H 139 H 148 H 06/23/18 06/23/18 06/23/18 18:11 14:28 12:02 POC Glucose 138 H 141 H 126 H Medical Necessity - Tobacco Use Smoking Status: Never smoker Tobacco Use: Non-smoker Assessment/Plan All Active Problems Perforation of sigmoid colon due to diverticulitis (Acute) Obesity (Acute) Diabetes mellitus type 2 in obese (Acute) 68-year-old female with diverticulitis and microperforation 1. Patient is still having significant amount of left lower quadrant pain with the palpation. I advised her to continue n.p.o. until her pain is minimal. Continue antibiotics and IV fluids. Konstantin Ramirez MD Pager: [facility] [address] [place] [address], [address] [place] [address] Office:
[2018-06-24 06:48] LABS: POSITIVE COUNT NO; POSITIVE DIFFERENTIAL NO; POSITIVE MORPHOLOGY NO
[2018-06-24] MEDS: Budesonide Respules 0.5 MG/2 ML AMPUL.NEB. INHALATION ×2 (07:08→19:25)
[2018-06-24] MEDS: Lactated Ringers 1,000 ML 80 ML IV ×2 (08:30→20:01)
--- NOTE | 2018-06-24 09:07 | PCM.PN.HOSP ---
Patient Problems: Active and Suspected Problems Perforation of sigmoid colon due to diverticulitis (Acute) Obesity (Acute) Diabetes mellitus type 2 in obese (Acute) Subjective: Doing well today no issues overnight, her pain is little bit improved. No nausea or vomiting Vitals/I&O's: Vital Signs Temp Pulse Resp BP Pulse Ox 98.6 F 94 16 138/72 H 93 06/24/18 08:30 06/24/18 08:30 06/24/18 08:30 06/24/18 08:30 06/24/18 08:30 Oxygen Flow Rate (L/min) 2 Oxygen Delivery Method Room Air Weight: 208 lb 12.444 oz Body Mass Index (BMI) 39.4 Intake and Output for Last 24 Hours 06/22/18 06/23/18 06/24/18 23:59 23:59 23:59 Intake Total 1794 / 1794 1284 / 1284 Output Total 1500 / 1500 1100 / 1100 Balance 294 / 294 184 / 184 General: Alert, Oriented x3, Cooperative, No apparent distress HEENT: Atraumatic, PERRLA, EOMI, Normocephalic Oral: Moist Mucosa Neck: Supple, No JVD, Trachea Midline Lungs: Clear to auscultation, Normal air movement, No rhonchi, No wheeze, No rales Cardiovascular: Regular rate, Regular Rhythm, Normal S1, Normal S2, No murmurs Abdomen: Soft, Non-Distended, No Hepato-splenomegaly, Obese, Tender - Mild on the left Extremities: No edema, Capillary Refill Less than 3 Seconds Skin: No rashes, No breakdown Neurological: Neuro grossly intact, Sensory exam intact to light touch and pain Psych/Mental Status: Normal Affect, Appropriate Laboratory Results 06/22/18 19:30: Diff Path Review Reviewed 06/23/18 12:02: POC Glucose 126 H 06/23/18 14:28: POC Glucose 141 H 06/23/18 18:11: POC Glucose 138 H 06/23/18 21:49: POC Glucose 148 H 06/24/18 02:20: POC Glucose 139 H 06/24/18 06:20: WBC 15.6 H, RBC 3.91 L, Hgb 10.6 L, Hct 34.0 L, MCV 87.0, MCH 27.1, MCHC 31.2 L, RDW 15.5 H, RDW Differential 49.8 H, Plt Count 172, MPV 11.4, Immature Gran % (Auto) 0.300, Neut % (Auto) 72.0 H, Lymph % (Auto) 12.7 L, [place] % (Auto) 7.5, Eos % (Auto) 7.4 H, Baso % (Auto) 0.1, Absolute Neuts (auto) 11.3 H, Absolute Lymphs (auto) 1.98, Total Counted Not Reportable 06/24/18 06:24: POC Glucose 124 H Current Medications Acetaminophen (Tylenol) 650 mg PO Q6H PRN PRN PRN Reason: PAIN Albuterol Sulfate (Ventolin Aerosols) 2.5 mg INHALATION Q4H PRN PRN PRN Reason: COPD Last Admin: 06/23/18 19:39 Dose: 2.5 mg Atorvastatin Calcium (Lipitor) 10 mg PO QHS [facility] Last Admin: 06/23/18 21:52 Dose: 10 mg Budesonide (Pulmicort Aerosol) 0.5 mg INHALATION Q12H.RT [facility] Last Admin: 06/24/18 07:08 Dose: 0.5 mg Dextrose (D50w Syringe) 0 gm IV X1 PRN; Protocol PRN Reason: Hypoglycemia Glucagon () 1 mg IM .X1 PRN PRN Reason: Hypoglycemia Piperacillin Sod/Tazobactam (Sod 3.375 gm/ Sodium Chloride) 50 mls @ 12.5 mls/hr IV Q8 [facility] Last Admin: 06/24/18 06:26 Dose: 12.5 mls/hr Sodium Chloride () 250 mls @ 15 mls/hr IV .[id number] PRN PRN Reason: SALINE FLUSH Lactated Ringer's () 1,000 mls @ 80 mls/hr IV .[id number] [facility] Last Admin: 06/24/18 08:30 Dose: 80 mls/hr Insulin Human Lispro (Humalog Kwikpen (Bkc)) 0 unit SQ Q4 [facility]; Protocol Last Admin: 06/24/18 06:26 Dose: Not Given Levothyroxine Sodium (Synthroid) 100 mcg PO DAILY@0600 [facility] Last Admin: 06/24/18 06:26 Dose: 100 mcg Lisinopril (Zestril) 10 mg PO DAILY [facility] Last Admin: 06/23/18 09:50 Dose: 10 mg Morphine Sulfate () 2 - 4 mg IV Q2H PRN PRN PRN Reason: PAIN Last Admin: 06/24/18 02:27 Dose: 2 mg Morphine Sulfate () 2 - 4 mg IV Q2H PRN PRN PRN Reason: PAIN Last Admin: 06/24/18 06:36 Dose: 4 mg Ondansetron HCl (Zofran) 4 mg IV Q8H PRN PRN PRN Reason: nausea Pantoprazole Sodium (Protonix) 40 mg PO DAILY [facility] Last Admin: 06/23/18 09:50 Dose: 40 mg Sodium Chloride () 5 - 15 ml IV UD PRN PRN Reason: SALINE FLUSH Last Admin: 06/24/18 06:36 Dose: 10 ml Medical Necessity - Tobacco Use Smoking Status: Never smoker Tobacco Use: Non-smoker Assessment/Plan All Active Problems Perforation of sigmoid colon due to diverticulitis (Acute) Obesity (Acute) Diabetes mellitus type 2 in obese (Acute) 1. Acute diverticulitis with microperforation -Continue pain medication as well as Zosyn per primary -We will continue to monitor with low threshold for surgical intervention -LR at 80 cc/h -Continue with n.p.o. 2. COPD -Does not be currently in exacerbation -We will continue to monitor and continue with her home inhalers 3. DM 2 -She is currently n.p.o., -will hold her metformin, Januvia and her glimepiride -place her on sliding scale insulin with Accu-Cheks every 4 while n.p.o. 4. Hypothyroidism -Stable -Continue with Synthroid 5. GERD -Stable -Continue with PPI 6. HTN/HLD -Blood pressure is stable -Continue with lisinopril, and simvastatin. DVT: SCDs Code Visit Inpatient E&M: 02948 Subs Hosp L2
--- NOTE | 2018-06-24 09:11 | PN_ITS ---
Patient Problems: Active and Suspected Problems Perforation of sigmoid colon due to diverticulitis (Acute) Obesity (Acute) Diabetes mellitus type 2 in obese (Acute) Subjective: Doing well today no issues overnight, her pain is little bit improved. No nausea or vomiting Vitals/I&O's: Vital Signs Temp Pulse Resp BP Pulse Ox 98.6 F 94 16 138/72 H 93 06/24/18 08:30 06/24/18 08:30 06/24/18 08:30 06/24/18 08:30 06/24/18 08:30 Oxygen Flow Rate (L/min) 2 Oxygen Delivery Method Room Air Weight: 208 lb 12.444 oz Body Mass Index (BMI) 39.4 Intake and Output for Last 24 Hours 06/22/18 06/23/18 06/24/18 23:59 23:59 23:59 Intake Total 1794 / 1794 1284 / 1284 Output Total 1500 / 1500 1100 / 1100 Balance 294 / 294 184 / 184 General: Alert, Oriented x3, Cooperative, No apparent distress HEENT: Atraumatic, PERRLA, EOMI, Normocephalic Oral: Moist Mucosa Neck: Supple, No JVD, Trachea Midline Lungs: Clear to auscultation, Normal air movement, No rhonchi, No wheeze, No rales Cardiovascular: Regular rate, Regular Rhythm, Normal S1, Normal S2, No murmurs Abdomen: Soft, Non-Distended, No Hepato-splenomegaly, Obese, Tender - Mild on the left Extremities: No edema, Capillary Refill Less than 3 Seconds Skin: No rashes, No breakdown Neurological: Neuro grossly intact, Sensory exam intact to light touch and pain Psych/Mental Status: Normal Affect, Appropriate Laboratory Results 06/22/18 19:30: Diff Path Review Reviewed 06/23/18 12:02: POC Glucose 126 H 06/23/18 14:28: POC Glucose 141 H 06/23/18 18:11: POC Glucose 138 H 06/23/18 21:49: POC Glucose 148 H 06/24/18 02:20: POC Glucose 139 H 06/24/18 06:20: WBC 15.6 H, RBC 3.91 L, Hgb 10.6 L, Hct 34.0 L, MCV 87.0, MCH 27.1, MCHC 31.2 L, RDW 15.5 H, RDW Differential 49.8 H, Plt Count 172, MPV 11.4, Immature Gran % (Auto) 0.300, Neut % (Auto) 72.0 H, Lymph % (Auto) 12.7 L, [place] % (Auto) 7.5, Eos % (Auto) 7.4 H, Baso % (Auto) 0.1, Absolute Neuts (auto) 11.3 H, Absolute Lymphs (auto) 1.98, Total Counted Not Reportable 06/24/18 06:24: POC Glucose 124 H Current Medications Acetaminophen (Tylenol) 650 mg PO Q6H PRN PRN PRN Reason: PAIN Albuterol Sulfate (Ventolin Aerosols) 2.5 mg INHALATION Q4H PRN PRN PRN Reason: COPD Last Admin: 06/23/18 19:39 Dose: 2.5 mg Atorvastatin Calcium (Lipitor) 10 mg PO QHS [facility] Last Admin: 06/23/18 21:52 Dose: 10 mg Budesonide (Pulmicort Aerosol) 0.5 mg INHALATION Q12H.RT [facility] Last Admin: 06/24/18 07:08 Dose: 0.5 mg Dextrose (D50w Syringe) 0 gm IV X1 PRN; Protocol PRN Reason: Hypoglycemia Glucagon () 1 mg IM .X1 PRN PRN Reason: Hypoglycemia Piperacillin Sod/Tazobactam (Sod 3.375 gm/ Sodium Chloride) 50 mls @ 12.5 m ls/hr IV Q8 [facility] Last Admin: 06/24/18 06:26 Dose: 12.5 mls/hr Sodium Chloride () 250 mls @ 15 mls/hr IV .[id number] PRN PRN Reason: SALINE FLUSH Lactated Ringer's () 1,000 mls @ 80 mls/hr IV .[id number] [facility] Last Admin: 06/24/18 08:30 Dose: 80 mls/hr Insulin Human Lispro (Humalog Kwikpen (Bkc)) 0 unit SQ Q4 [facility]; Protocol Last Admin: 06/24/18 06:26 Dose: Not Given Levothyroxine Sodium (Synthroid) 100 mcg PO DAILY@0600 [facility] Last Admin: 06/24/18 06:26 Dose: 100 mcg Lisinopril (Zestril) 10 mg PO DAILY [facility] Last Admin: 06/23/18 09:50 Dose: 10 mg Morphine Sulfate () 2 - 4 mg IV Q2H PRN PRN PRN Reason: PAIN Last Admin: 06/24/18 02:27 Dose: 2 mg Morphine Sulfate () 2 - 4 mg IV Q2H PRN PRN PRN Reason: PAIN Last Admin: 06/24/18 06:36 Dose: 4 mg Ondansetron HCl (Zofran) 4 mg IV Q8H PRN PRN PRN Reason: nausea Pantoprazole Sodium (Protonix) 40 mg PO DAILY [facility] Last Admin: 06/23/18 09:50 Dose: 40 mg Sodium Chloride () 5 - 15 ml IV UD PRN PRN Reason: SALINE FLUSH Last Admin: 06/24/18 06:36 Dose: 10 ml Medical Necessity - Tobacco Use Smoking Status: Never smoker Tobacco Use: Non-smoker Assessment/Plan All Active Problems Perforation of sigmoid colon due to diverticulitis (Acute) Obesity (Acute) Diabetes mellitus type 2 in obese (Acute) 1. Acute diverticulitis with microperforation -Continue pain medication as well as Zosyn per primary -We will continue to monitor with low threshold for surgical intervention -LR at 80 cc/h -Continue with n.p.o. 2. COPD -Does not be currently in exacerbation -We will continue to monitor and continue with her home inhalers 3. DM 2 -She is currently n.p.o., -will hold her metformin, Januvia and her glimepiride -place her on sliding scale insulin with Accu-Cheks every 4 while n.p.o. 4. Hypothyroidism -Stable -Continue with Synthroid 5. GERD -Stable -Continue with PPI 6. HTN/HLD -Blood pressure is stable -Continue with lisinopril, and simvastatin. DVT: SCDs Code Visit Inpatient E&M: 65672 Subs Hosp L2
[2018-06-24] MEDS: Pantoprazole Sodium 40 MG Tablet PO (10:13)
[2018-06-24] MEDS: Lisinopril 10 MG Tablet PO (10:13)
[2018-06-24 10:31] LABS: Bedside Glucose 125 mg/dL (70-110)
[2018-06-24 14:16] LABS: Bedside Glucose 105 mg/dL (70-110)
[2018-06-24 18:15] LABS: Bedside Glucose 100 mg/dL (70-110)
[2018-06-24] MEDS: 0.9% NaCl IVPB Med Flush (250 mL) 15 ML IV (20:02)
[2018-06-24] MEDS: Atorvastatin Calcium 10 MG Tablet PO (22:01)
[2018-06-24 22:11] LABS: Bedside Glucose 105 mg/dL (70-110)
[2018-06-25] VITALS (7 sets, daily range): BP systolic 122–150; BP diastolic 53–77; PULSE 88–105; RESP 16–18; TEMP 36.7–37.1; O2SAT 91–97
[2018-06-25 01:56] LABS: Bedside Glucose 100 mg/dL (70-110)
[2018-06-25] MEDS: Levothyroxine 100 MCG Tablet PO (05:48)
[2018-06-25 05:56] LABS: Bedside Glucose 116 mg/dL (70-110)
[2018-06-25] MEDS: Budesonide Respules 0.5 MG/2 ML AMPUL.NEB. INHALATION ×2 (06:38→19:53)
[2018-06-25 07:08] LABS: Absolute Lymphocyte Count 1.77 X10^3/ul (0.83-4.51); Absolute Neutrophil Count 9.6 X10^3/uL (2.0-7.7); Basophil# 0.01 X10^3/uL; Basophil% 0.1 % (0-1); Eosinophils% 7.4 % (0-5); Hematocrit 34.4 % (37-47); Hemoglobin 10.6 g/dl (12.0-15.0); Lymphocyte # 1.77 X10^3/ul (4.0); Lymphocyte % 13.1 % (19-41); Mean Corp Hgb Conc 30.8 g/gl (32-36); Mean Corpuscular Hgb 26.4 pg (27.0-32.0); Mean Corpuscular Volume 85.8 fL (81-99); Mean Platelet Vol. 11.8 fl (6.2-12.0); Monocyte# 1.07 X10^3/uL; Monocyte% 7.9 % (0-10); Neutrophil # 9.64 X10^3/uL (2.7-7.7); Neutrophil % 71.1 % (47-70); Platelet Count 188 K/mm3 (150-450); RBC Distribution Width SD 46.4 fl (35.1-43.9); Red Blood Count 4.01 M/mm3 (4.2-5.4); White Blood Count 13.5 K/mm3 (4.4-11.0)
[2018-06-25 07:21] LABS: POSITIVE COUNT NO; POSITIVE DIFFERENTIAL NO; POSITIVE MORPHOLOGY NO
[2018-06-25 07:29] LABS: Anion Gap 7 (5-15); BUN 8 mg/dL (7-18); BUN/Creat Ratio 13.2 RATIO (10-20); Calcium,Total 8.7 mg/dL (8.5-10.1); Chloride 106 mmol/L (98-107); Creatinine, Serum 0.61 mg/dL (0.55-1.02); EST Glomerular Filtration Rate 104 mL/min (>60); Est Glom Filt Rate - Afr Amer 126 mL/min (>60); Estimated Creatinine Clearance 40.07 ml/min; Glucose 108 mg/dL (74-106); Potassium 3.7 mmol/L (3.5-5.1); Sodium Level 142 mmol/L (136-145)
[2018-06-25] MEDS: Lactated Ringers 1,000 ML 80 ML IV ×2 (07:50→21:23)
--- NOTE | 2018-06-25 09:17 | PCM.PN.HOSP ---
Patient Problems: Active and Suspected Problems Perforation of sigmoid colon due to diverticulitis (Acute) Obesity (Acute) Diabetes mellitus type 2 in obese (Acute) Subjective: Pain much better controlled, would like to try something to eat denies any nausea or vomiting. Vitals/I&O's: Vital Signs Temp Pulse Resp BP Pulse Ox 98.4 F 90 16 145/77 H 92 06/25/18 07:42 06/25/18 07:42 06/25/18 07:42 06/25/18 07:42 06/25/18 07:42 Oxygen Flow Rate (L/min) 2 Oxygen Delivery Method Room Air Weight: 208 lb 12.444 oz Body Mass Index (BMI) 39.4 Intake and Output for Last 24 Hours 06/23/18 06/24/18 06/25/18 23:59 23:59 23:59 Intake Total 1794 / 1794 2829 / 2829 524 / 524 Output Total 1500 / 1500 3000 / 3000 1300 / 1300 Balance 294 / 294 -171 / -171 -776 / -776 General: Alert, Oriented x3, Cooperative, No apparent distress HEENT: Atraumatic, PERRLA, EOMI, Normocephalic Oral: Moist Mucosa Neck: Supple, No JVD, Trachea Midline Lungs: Clear to auscultation, Normal air movement, No rhonchi, No wheeze, No rales Cardiovascular: Regular rate, Regular Rhythm, Normal S1, Normal S2, No murmurs Abdomen: Soft, Non-Distended, No Hepato-splenomegaly, Obese, Tender - very minimal on left Extremities: No edema, Capillary Refill Less than 3 Seconds Skin: No rashes, No breakdown Neurological: Neuro grossly intact, Sensory exam intact to light touch and pain Psych/Mental Status: Normal Affect, Appropriate Laboratory Results 06/24/18 10:11: POC Glucose 125 H 06/24/18 13:58: POC Glucose 105 06/24/18 18:09: POC Glucose 100 06/24/18 21:59: POC Glucose 105 06/25/18 01:48: POC Glucose 100 06/25/18 05:47: POC Glucose 116 H 06/25/18 06:40: WBC 13.5 H, RBC 4.01 L, Hgb 10.6 L, Hct 34.4 L, MCV 85.8, MCH 26.4 L, MCHC 30.8 L, RDW 15.0 H, RDW Differential 46.4 H, Plt Count 188, MPV 11.8, Immature Gran % (Auto) 0.400, Neut % (Auto) 71.1 H, Lymph % (Auto) 13.1 L, [place] % (Auto) 7.9, Eos % (Auto) 7.4 H, Baso % (Auto) 0.1, Absolute Neuts (auto) 9.6 H, Absolute Lymphs (auto) 1.77, Total Counted Not Reportable 06/25/18 06:40: Sodium 142, Potassium 3.7, Chloride 106, Carbon Dioxide 29.0, Anion Gap 7, BUN 8, Creatinine 0.61, Estim Creat Clear Calc 40.07, Est GFR (MDRD) Af Amer 126, Est GFR (MDRD) Non-Af 104, BUN/Creatinine Ratio 13.2, Glucose 108 H, Calcium 8.7 Current Medications Acetaminophen (Tylenol) 650 mg PO Q6H PRN PRN PRN Reason: PAIN Albuterol Sulfate (Ventolin Aerosols) 2.5 mg INHALATION Q4H PRN PRN PRN Reason: COPD Last Admin: 06/23/18 19:39 Dose: 2.5 mg Atorvastatin Calcium (Lipitor) 10 mg PO QHS [facility] Last Admin: 06/24/18 22:01 Dose: 10 mg Budesonide (Pulmicort Aerosol) 0.5 mg INHALATION Q12H.RT [facility] Last Admin: 06/25/18 06:38 Dose: 0.5 mg Dextrose (D50w Syringe) 0 gm IV X1 PRN; Protocol PRN Reason: Hypoglycemia Glucagon () 1 mg IM .X1 PRN PRN Reason: Hypoglycemia Piperacillin Sod/Tazobactam (Sod 3.375 gm/ Sodium Chloride) 50 mls @ 12.5 mls/hr IV Q8 [facility] Last Admin: 06/25/18 05:48 Dose: 12.5 mls/hr Sodium Chloride () 250 mls @ 15 mls/hr IV .[id number] PRN PRN Reason: SALINE FLUSH Last Admin: 06/24/18 20:02 Dose: 15 mls/hr Lactated Ringer's () 1,000 mls @ 80 mls/hr IV .[id number] [facility] Last Admin: 06/25/18 07:50 Dose: 80 mls/hr Insulin Human Lispro (Humalog Kwikpen (Bkc)) 0 unit SQ Q4 [facility]; Protocol Last Admin: 06/25/18 05:49 Dose: Not Given Levothyroxine Sodium (Synthroid) 100 mcg PO DAILY@0600 [facility] Last Admin: 06/25/18 05:48 Dose: 100 mcg Lisinopril (Zestril) 10 mg PO DAILY [facility] Last Admin: 06/24/18 10:13 Dose: 10 mg Morphine Sulfate () 2 - 4 mg IV Q2H PRN PRN PRN Reason: PAIN Last Admin: 06/24/18 20:01 Dose: 2 mg Morphine Sulfate () 2 - 4 mg IV Q2H PRN PRN PRN Reason: PAIN Last Admin: 06/24/18 06:36 Dose: 4 mg Ondansetron HCl (Zofran) 4 mg IV Q8H PRN PRN PRN Reason: nausea Pantoprazole Sodium (Protonix) 40 mg PO DAILY [facility] Last Admin: 06/24/18 10:13 Dose: 40 mg Sodium Chloride () 5 - 15 ml IV UD PRN PRN Reason: SALINE FLUSH Last Admin: 06/24/18 06:36 Dose: 10 ml Medical Necessity - Tobacco Use Smoking Status: Never smoker Tobacco Use: Non-smoker Assessment/Plan All Active Problems Perforation of sigmoid colon due to diverticulitis (Acute) Obesity (Acute) Diabetes mellitus type 2 in obese (Acute) 1. Acute diverticulitis with microperforation -Continue pain medication as well as Zosyn per primary -We will continue to monitor with low threshold for surgical intervention -LR at 80 cc/h -advance to clears and if tolerates, DC IVF 2. COPD -Is not currently in exacerbation -We will continue to monitor and continue with her home inhalers 3. DM 2 -Start clears -will hold her metformin, Januvia and her glimepiride -place her on sliding scale insulin with Accu-Cheks ACHS when taking PO 4. Hypothyroidism -Stable -Continue with Synthroid 5. GERD -Stable -Continue with PPI 6. HTN/HLD -Blood pressure is stable -Continue with lisinopril, and simvastatin. DVT: SCDs
[2018-06-25] MEDS: Pantoprazole Sodium 40 MG Tablet PO (09:33)
[2018-06-25] MEDS: Lisinopril 10 MG Tablet PO (09:36)
[2018-06-25 09:46] LABS: Bedside Glucose 120 mg/dL (70-110)
--- NOTE | 2018-06-25 09:55 | PCM.PN.SRG ---
Patient Problems: Active and Suspected Problems Perforation of sigmoid colon due to diverticulitis (Acute) Obesity (Acute) Diabetes mellitus type 2 in obese (Acute) Subjective: pt denies abd pain, +flatus - Physical Exam General: Alert, Oriented x3, Cooperative, No apparent distress HEENT: Atraumatic Lungs: Normal air movement Cardiovascular: Regular rate Abdomen: Soft, Non Tender, Non-Distended, Passing Flatus Vital Signs Temp Pulse Resp BP Pulse Ox 98.4 F 90 16 145/77 H 92 06/25/18 07:42 06/25/18 07:42 06/25/18 07:42 06/25/18 07:42 06/25/18 07:42 Oxygen Flow Rate (L/min) 2 Oxygen Delivery Method Room Air Weight: 208 lb 12.444 oz Body Mass Index (BMI) 39.4 Intake and Output for Last 24 Hours 06/23/18 06/24/18 06/25/18 23:59 23:59 23:59 Intake Total 1794 / 1794 2829 / 2829 524 / 524 Output Total 1500 / 1500 3000 / 3000 1300 / 1300 Balance 294 / 294 -171 / -171 -776 / -776 Laboratory Tests Past 24 Hrs 06/25/18 06/25/18 06:40 06:40 WBC 13.5 H RBC 4.01 L Hgb 10.6 L Hct 34.4 L MCV 85.8 MCH 26.4 L MCHC 30.8 L RDW 15.0 H RDW Differential 46.4 H Plt Count 188 MPV 11.8 Immature Gran % (Auto) 0.400 Neut % (Auto) 71.1 H Lymph % (Auto) 13.1 L [place] % (Auto) 7.9 Eos % (Auto) 7.4 H Baso % (Auto) 0.1 Absolute Neuts (auto) 9.6 H Absolute Lymphs (auto) 1.77 Total Counted Not Reportable Sodium 142 Potassium 3.7 Chloride 106 Carbon Dioxide 29.0 Anion Gap 7 BUN 8 Creatinine 0.61 Estim Creat Clear Calc 40.07 Est GFR (MDRD) Af Amer 126 Est GFR (MDRD) Non-Af 104 BUN/Creatinine Ratio 13.2 Glucose 108 H Calcium 8.7 POC Glucose 06/25/18 06/25/18 06/25/18 09:34 05:47 01:48 POC Glucose 120 H 116 H 100 0405/19 04/05/19 04/05/19 21:59 18:09 13:58 POC Glucose 105 100 105 06/24/18 10:11 POC Glucose 125 H Medical Necessity - Tobacco Use Smoking Status: Never smoker Tobacco Use: Non-smoker Assessment/Plan All Active Problems Perforation of sigmoid colon due to diverticulitis (Acute) Obesity (Acute) Diabetes mellitus type 2 in obese (Acute) start clears if tolerated will advance to fulls at supper continue IV zosyn WBC down to 13.5 Asha Prado M.D. Pager: [phone] [facility] [address] [place] [address], Outpatient [place], [address] [place] [address] Office: [phone] Code Visit Inpatient E&M: [id number] Subs Hosp L1
[2018-06-25] MEDS: 0.9% NaCl Peripheral Flush Adult/Peds IV (12:03)
[2018-06-25] MEDS: Ensure Clear 120 ML Liquid PO ×2 (12:07→18:06)
[2018-06-25 15:41] LABS: Bedside Glucose 125 mg/dL (70-110)
[2018-06-25] MEDS: Albuterol 2.5 MG/3 ML VIAL.NEB. INHALATION (20:06)
[2018-06-25] MEDS: Atorvastatin Calcium 10 MG Tablet PO (21:21)
[2018-06-25 21:35] LABS: Bedside Glucose 333 mg/dL (70-110)
[2018-06-25] MEDS: Insulin Lispro 100 UNIT/ML INSULN.PEN SC (21:37)
[2018-06-26 02:18] VITALS: BP 113/73; PULSE 88; RESP 16; TEMP 37.1; O2SAT 94
[2018-06-26 05:56] LABS: Absolute Lymphocyte Count 1.76 X10^3/ul (0.83-4.51); Absolute Neutrophil Count 7.3 X10^3/uL (2.0-7.7); Basophil# 0.01 X10^3/uL; Basophil% 0.1 % (0-1); Eosinophil# 0.79 X10^3/uL; Eosinophils% 7.2 % (0-5); Hematocrit 34.1 % (37-47); Hemoglobin 10.5 g/dl (12.0-15.0); Lymphocyte # 1.76 X10^3/ul (4.0); Lymphocyte % 15.9 % (19-41); Mean Corp Hgb Conc 30.8 g/gl (32-36); Mean Corpuscular Hgb 26.3 pg (27.0-32.0); Mean Corpuscular Volume 85.3 fL (81-99); Mean Platelet Vol. 11.6 fl (6.2-12.0); Monocyte# 1.15 X10^3/uL; Monocyte% 10.4 % (0-10); Neutrophil # 7.29 X10^3/uL (2.7-7.7); Platelet Count 210 K/mm3 (150-450); RBC Distribution Width CV 14.9 % (11.6-14.6)
[2018-06-26 06:25] LABS: POSITIVE COUNT NO; POSITIVE DIFFERENTIAL NO; POSITIVE MORPHOLOGY NO
[2018-06-26 06:41] LABS: Bedside Glucose 166 mg/dL (70-110)
[2018-06-26] MEDS: Levothyroxine 100 MCG Tablet PO (06:43)
[2018-06-26] MEDS: Insulin Lispro 100 UNIT/ML INSULN.PEN SC ×2 (06:46→11:45)
[2018-06-26] MEDS: Budesonide Respules 0.5 MG/2 ML AMPUL.NEB. INHALATION (07:23)
[2018-06-26 07:24] VITALS: PULSE 88; RESP 16; O2SAT 95
[2018-06-26 07:51] VITALS: BP 131/79; PULSE 82; RESP 16; TEMP 36.7; O2SAT 94
--- NOTE | 2018-06-26 07:53 | PCM.PN.HOSP ---
Patient Problems: Active and Suspected Problems Perforation of sigmoid colon due to diverticulitis (Acute) Obesity (Acute) Diabetes mellitus type 2 in obese (Acute) Subjective: She is feeling much better today, she was able to tolerate her clear liquid and full liquid diet yesterday, pain is gone. Vitals/I&O's: Vital Signs Temp Pulse Resp BP Pulse Ox 98.8 F 88 16 113/73 95 06/26/18 02:18 06/26/18 07:24 06/26/18 07:24 06/26/18 02:18 06/26/18 07:24 Oxygen Flow Rate (L/min) 2 Oxygen Delivery Method Room Air Weight: 208 lb 12.444 oz Body Mass Index (BMI) 39.4 Intake and Output for Last 24 Hours 06/24/18 06/25/18 06/26/18 23:59 23:59 23:59 Intake Total 2829 / 2829 2584 / 2584 906 / 906 Output Total 3000 / 3000 3360 / 3360 2700 / 2700 Balance -171 / -171 -776 / -776 -1794 / -1794 General: Alert, Oriented x3, Cooperative, No apparent distress HEENT: Atraumatic, PERRLA, EOMI, Normocephalic Oral: Moist Mucosa Neck: Supple, No JVD, Trachea Midline Lungs: Clear to auscultation, Normal air movement, No rhonchi, No wheeze, No rales Cardiovascular: Regular rate, Regular Rhythm, Normal S1, Normal S2, No murmurs Abdomen: Soft, Non-Distended, No Hepato-splenomegaly, Obese, Tender - very minimal on left Extremities: No edema, Capillary Refill Less than 3 Seconds Skin: No rashes, No breakdown Neurological: Neuro grossly intact, Sensory exam intact to light touch and pain Psych/Mental Status: Normal Affect, Appropriate Laboratory Results 06/25/18 09:34: POC Glucose 120 H 06/25/18 15:32: POC Glucose 125 H 06/25/18 21:17: POC Glucose 333 H 06/26/18 05:25: WBC 11.0, RBC 4.00 L, Hgb 10.5 L, Hct 34.1 L, MCV 85.3, MCH 26.3 L, MCHC 30.8 L, RDW 14.9 H, RDW Differential 45.0 H, Plt Count 210, MPV 11.6, Immature Gran % (Auto) 0.400, Neut % (Auto) 66.0, Lymph % (Auto) 15.9 L, [place] % (Auto) 10.4 H, Eos % (Auto) 7.2 H, Baso % (Auto) 0.1, Absolute Neuts (auto) 7.3, Absolute Lymphs (auto) 1.76, Total Counted Not Reportable 06/26/18 06:36: POC Glucose 166 H Current Medications Acetaminophen (Tylenol) 650 mg PO Q6H PRN PRN PRN Reason: PAIN Albuterol Sulfate (Ventolin Aerosols) 2.5 mg INHALATION Q4H PRN PRN PRN Reason: COPD Last Admin: 06/25/18 20:06 Dose: 2.5 mg Atorvastatin Calcium (Lipitor) 10 mg PO QHS [facility] Last Admin: 06/25/18 21:21 Dose: 10 mg Budesonide (Pulmicort Aerosol) 0.5 mg INHALATION Q12H.RT [facility] Last Admin: 06/26/18 07:23 Dose: 0.5 mg Dextrose (D50w Syringe) 0 gm IV X1 [facility]; Protocol PRN Reason: Hypoglycemia Glucagon () 1 mg IM .X1 PRN PRN Reason: Hypoglycemia Piperacillin Sod/Tazobactam (Sod 3.375 gm/ Sodium Chloride) 50 mls @ 12.5 mls/hr IV Q8 [facility] Last Admin: 06/26/18 06:41 Dose: 12.5 mls/hr Sodium Chloride () 250 mls @ 15 mls/hr IV .[id number] PRN PRN Reason: SALINE FLUSH Last Admin: 06/24/18 20:02 Dose: 15 mls/hr Lactated Ringer's () 1,000 mls @ 80 mls/hr IV .[id number] [facility] Last Admin: 06/25/18 21:23 Dose: 80 mls/hr Insulin Human Lispro (Humalog Kwikpen (Bkc)) 0 unit SC ACHS [facility]; Protocol Last Admin: 06/26/18 06:46 Dose: 1 units Levothyroxine Sodium (Synthroid) 100 mcg PO DAILY@0600 [facility] Last Admin: 06/26/18 06:43 Dose: 100 mcg Lisinopril (Zestril) 10 mg PO DAILY [facility] Last Admin: 06/25/18 09:36 Dose: 10 mg Morphine Sulfate () 2 - 4 mg IV Q2H PRN PRN PRN Reason: PAIN Last Admin: 06/24/18 20:01 Dose: 2 mg Morphine Sulfate () 2 - 4 mg IV Q2H PRN PRN PRN Reason: PAIN Last Admin: 06/24/18 06:36 Dose: 4 mg Nutritional Formula (Lactose Free) (Ensure Clear) 120 ml PO TIDCM [facility] Last Admin: 06/25/18 18:06 Dose: 120 ml Ondansetron HCl (Zofran) 4 mg IV Q8H PRN PRN PRN Reason: nausea Pantoprazole Sodium (Protonix) 40 mg PO DAILY [facility] Last Admin: 06/25/18 09:33 Dose: 40 mg Sodium Chloride () 5 - 15 ml IV UD PRN PRN Reason: SALINE FLUSH Last Admin: 06/25/18 12:03 Dose: 10 ml Medical Necessity - Tobacco Use Smoking Status: Never smoker Tobacco Use: Non-smoker Assessment/Plan All Active Problems Perforation of sigmoid colon due to diverticulitis (Acute) Obesity (Acute) Diabetes mellitus type 2 in obese (Acute) 1. Acute diverticulitis with microperforation -Continue pain medication as well as Zosyn, if necessary can likely be discharged on Augmentin to complete an antibiotic course for the microperforation -We will continue to monitor with low threshold for surgical intervention -DC IV fluids and can advance diet per surgery -She is cleared medically for discharge, will sign off 2. COPD -Is not currently in exacerbation -We will continue to monitor and continue with her home inhalers 3. DM 2 -Advance diet per surgery -will hold her metformin, Januvia and her glimepiride -place her on sliding scale insulin with Accu-Cheks ACHS -She can be discharged on her home oral medications 4. Hypothyroidism -Stable -Continue with Synthroid 5. GERD -Stable -Continue with PPI 6. HTN/HLD -Blood pressure is stable -Continue with lisinopril, and simvastatin. DVT: SCDs Code Visit Inpatient E&M: [id number] Subs Hosp L2
[2018-06-26] MEDS: Ensure Clear 120 ML Liquid PO ×2 (07:54→11:46)
[2018-06-26] MEDS: Lisinopril 10 MG Tablet PO (07:55)
[2018-06-26] MEDS: Pantoprazole Sodium 40 MG Tablet PO (07:56)
--- NOTE | 2018-06-26 07:56 | PN_ITS ---
Patient Problems: Active and Suspected Problems Perforation of sigmoid colon due to diverticulitis (Acute) Obesity (Acute) Diabetes mellitus type 2 in obese (Acute) Subjective: She is feeling much better today, she was able to tolerate her clear liquid and full liquid diet yesterday, pain is gone. Vitals/I&O's: Vital Signs Temp Pulse Resp BP Pulse Ox 98.8 F 88 16 113/73 95 06/26/18 02:18 06/26/18 07:24 06/26/18 07:24 06/26/18 02:18 06/26/18 07:24 Oxygen Flow Rate (L/min) 2 Oxygen Delivery Method Room Air Weight: 208 lb 12.444 oz Body Mass Index (BMI) 39.4 Intake and Output for Last 24 Hours 06/24/18 06/25/18 06/26/18 23:59 23:59 23:59 Intake Total 2829 / 2829 2584 / 2584 906 / 906 Output Total 3000 / 3000 3360 / 3360 2700 / 2700 Balance -171 / -171 -776 / -776 -1794 / -1794 General: Alert, Oriented x3, Cooperative, No apparent distress HEENT: Atraumatic, PERRLA, EOMI, Normocephalic Oral: Moist Mucosa Neck: Supple, No JVD, Trachea Midline Lungs: Clear to auscultation, Normal air movement, No rhonchi, No wheeze, No rales Cardiovascular: Regular rate, Regular Rhythm, Normal S1, Normal S2, No murmurs Abdomen: Soft, Non-Distended, No Hepato-splenomegaly, Obese, Tender - very minimal on left Extremities: No edema, Capillary Refill Less than 3 Seconds Skin: No rashes, No breakdown Neurological: Neuro grossly intact, Sensory exam intact to light touch and pain Psych/Mental Status: Normal Affect, Appropriate Laboratory Results 06/25/18 09:34: POC Glucose 120 H 06/25/18 15:32: POC Glucose 125 H 06/25/18 21:17: POC Glucose 333 H 06/26/18 05:25: WBC 11.0, RBC 4.00 L, Hgb 10.5 L, Hct 34.1 L, MCV 85.3, MCH 26.3 L, MCHC 30.8 L, RDW 14.9 H, RDW Differential 45.0 H, Plt Count 210, MPV 11.6, Immature Gran % (Auto) 0.400, Neut % (Auto) 66.0, Lymph % (Auto) 15.9 L, [place]ole % (Auto) 10.4 H, Eos % (Auto) 7.2 H, Baso % (Auto) 0.1, Absolute Neuts (auto) 7.3, Absolute Lymphs (auto) 1.76, Total Counted Not Reportable 06/26/18 06:36: POC Glucose 166 H Current Medications Acetaminophen (Tylenol) 650 mg PO Q6H PRN PRN PRN Reason: PAIN Albuterol Sulfate (Ventolin Aerosols) 2.5 mg INHALATION Q4H PRN PRN PRN Reason: COPD Last Admin: 06/25/18 20:06 Dose: 2.5 mg Atorvastatin Calcium (Lipitor) 10 mg PO QHS [facility] Last Admin: 06/25/18 21:21 Dose: 10 mg Budesonide (Pulmicort Aerosol) 0.5 mg INHALATION Q12H.RT [facility] Last Admin: 06/26/18 07:23 Dose: 0.5 mg Dextrose (D50w Syringe) 0 gm IV X1 PRN; Protocol PRN Reason: Hypoglycemia Glucagon () 1 mg IM .X1 PRN PRN Reason: Hypoglycemia Piperacillin Sod/Tazobactam (Sod 3.375 gm/ Sodium Chloride) 50 mls @ 12.5 mls/hr IV Q8 [facility] Last Admin: 06/26/18 06:41 Dose: 12.5 mls/hr Sodium Chloride () 250 mls @ 15 mls/hr IV .[id number] PRN PRN Reason: SALINE FLUSH Last Admin: 06/24/18 20:02 Dose: 15 mls/hr Lactated Ringer's () 1,000 mls @ 80 mls/hr IV .[id number] [facility] Last Admin: 06/25/18 21:23 Dose: 80 mls/hr Insulin Human Lispro (Humalog Kwikpen (Bkc)) 0 unit SC ACHS [facility]; Protocol Last Admin: 06/26/18 06:46 Dose: 1 units Levothyroxine Sodium (Synthroid) 100 mcg PO DAILY@0600 [facility] Last Admin: 06/26/18 06:43 Dose: 100 mcg Lisinopril (Zestril) 10 mg PO DAILY [facility] Last Admin: 06/25/18 09:36 Dose: 10 mg Morphine Sulfate () 2 - 4 mg IV Q2H PRN PRN PRN Reason: PAIN Last Admin: 06/24/18 20:01 Dose: 2 mg Morphine Sulfate () 2 - 4 mg IV Q2H PRN PRN PRN Reason: PAIN Last Admin: 06/24/18 06:36 Dose: 4 mg Nutritional Formula (Lactose Free) (Ensure Clear) 120 ml PO TIDCM [facility] Last Admin: 06/25/18 18:06 Dose: 120 ml Ondansetron HCl (Zofran) 4 mg IV Q8H PRN PRN PRN Reason: nausea Pantoprazole Sodium (Protonix) 40 mg PO DAILY [facility] Last Admin: 06/25/18 09:33 Dose: 40 mg Sodium Chloride () 5 - 15 ml IV UD PRN PRN Reason: SALINE FLUSH Last Admin: 06/25/18 12:03 Dose: 10 ml Medical Necessity - Tobacco Use Smoking Status: Never smoker Tobacco Use: Non-smoker Assessment/Plan All Active Problems Perforation of sigmoid colon due to diverticulitis (Acute) Obesity (Acute) Diabetes mellitus type 2 in obese (Acute) 1. Acute diverticulitis with microperforation -Continue pain medication as well as Zosyn, if necessary can likely be discharged on Augmentin to complete an antibiotic course for the microperforation -We will continue to monitor with low threshold for surgical intervention -DC IV fluids and can advance diet per surgery -She is cleared medically for discharge, will sign off 2. COPD -Is not currently in exacerbation -We will continue to monitor and continue with her home inhalers 3. DM 2 -Advance diet per surgery -will hold her metformin, Januvia and her glimepiride -place her on sliding scale insulin with Accu-Cheks ACHS -She can be discharged on her home oral medications 4. Hypothyroidism -Stable -Continue with Synthroid 5. GERD -Stable -Continue with PPI 6. HTN/HLD -Blood pressure is stable -Continue with lisinopril, and simvastatin. DVT: SCDs Code Visit Inpatient E&M: 19895 Subs Hosp L2
--- NOTE | 2018-06-26 08:08 | PCM.PN.SRG ---
Patient Problems: Active and Suspected Problems Perforation of sigmoid colon due to diverticulitis (Acute) Obesity (Acute) Diabetes mellitus type 2 in obese (Acute) Subjective: Patient tolerated full diet denies any abdominal pain positive bowel movement - Physical Exam General: Alert, Oriented x3, Cooperative, No apparent distress HEENT: Atraumatic Lungs: Normal air movement Cardiovascular: Regular rate Abdomen: Soft, Non Tender, Non-Distended Vital Signs Temp Pulse Resp BP Pulse Ox 98.1 F 82 16 131/79 H 94 06/26/18 07:51 06/26/18 07:51 06/26/18 07:51 06/26/18 07:51 06/26/18 07:51 Oxygen Flow Rate (L/min) 2 Oxygen Delivery Method Room Air Weight: 208 lb 12.444 oz Body Mass Index (BMI) 39.4 Intake and Output for Last 24 Hours 06/24/18 06/25/18 06/26/18 23:59 23:59 23:59 Intake Total 2829 / 2829 2584 / 2584 906 / 906 Output Total 3000 / 3000 3360 / 3360 2700 / 2700 Balance -171 / -171 -776 / -776 -1794 / -1794 Laboratory Tests Past 24 Hrs 06/26/18 05:25 WBC 11.0 RBC 4.00 L Hgb 10.5 L Hct 34.1 L MCV 85.3 MCH 26.3 L MCHC 30.8 L RDW 14.9 H RDW Differential 45.0 H Plt Count 210 MPV 11.6 Immature Gran % (Auto) 0.400 Neut % (Auto) 66.0 Lymph % (Auto) 15.9 L [place] % (Auto) 10.4 H Eos % (Auto) 7.2 H Baso % (Auto) 0.1 Absolute Neuts (auto) 7.3 Absolute Lymphs (auto) 1.76 Total Counted Not Reportable POC Glucose 06/26/18 06/25/18 06/25/18 06:36 21:17 15:32 POC Glucose 166 H 333 H 125 H 06/25/18 09:34 POC Glucose 120 H Medical Necessity - Tobacco Use Smoking Status: Never smoker Tobacco Use: Non-smoker Assessment/Plan All Active Problems Perforation of sigmoid colon due to diverticulitis (Acute) Obesity (Acute) Diabetes mellitus type 2 in obese (Acute) advance to low fiber diet WBC down to 11 with change to augmentin on d/c will d/c if gurpreet low fiber, f/u with Dr. Arias in 1 week Asha Prado M.D. Pager: [phone] [facility] [address] [place] [address], Outpatient [place], [address] [place] [address] Office: [phone] Code Visit Inpatient E&M: 53110 Subs Hosp L1
--- NOTE | 2018-06-26 08:12 | PN.SURG_ITS ---
Patient Problems: Active and Suspected Problems Perforation of sigmoid colon due to diverticulitis (Acute) Obesity (Acute) Diabetes mellitus type 2 in obese (Acute) Subjective: Patient tolerated full diet denies any abdominal pain positive bowel movement - Physical Exam General: Alert, Oriented x3, Cooperative, No apparent distress HEENT: Atraumatic Lungs: Normal air movement Cardiovascular: Regular rate Abdomen: Soft, Non Tender, Non-Distended Vital Signs Temp Pulse Resp BP Pulse Ox 98.1 F 82 16 131/79 H 94 06/26/18 07:51 06/26/18 07:51 06/26/18 07:51 06/26/18 07:51 06/26/18 07:51 Oxygen Flow Rate (L/min) 2 Oxygen Delivery Method Room Air Weight: 208 lb 12.444 oz Body Mass Index (BMI) 39.4 Intake and Output for Last 24 Hours 06/24/18 06/25/18 06/26/18 23:59 23:59 23:59 Intake Total 2829 / 2829 2584 / 2584 906 / 906 Output Total 3000 / 3000 3360 / 3360 2700 / 2700 Balance -171 / -171 -776 / -776 -1794 / -1794 Laboratory Tests Past 24 Hrs 06/26/18 05:25 WBC 11.0 RBC 4.00 L Hgb 10.5 L Hct 34.1 L MCV 85.3 MCH 26.3 L MCHC 30.8 L RDW 14.9 H RDW Differential 45.0 H Plt Count 210 MPV 11.6 Immature Gran % (Auto) 0.400 Neut % (Auto) 66.0 Lymph % (Auto) 15.9 L [place] % (Auto) 10.4 H Eos % (Auto) 7.2 H Baso % (Auto) 0.1 Absolute Neuts (auto) 7.3 Absolute Lymphs (auto) 1.76 Total Counted Not Reportable POC Glucose 06/26/18 06/25/18 06/25/18 06:36 21:17 15:32 POC Glucose 166 H 333 H 125 H 06/25/18 09:34 POC Glucose 120 H Medical Necessity - Tobacco Use Smoking Status: Never smoker Tobacco Use: Non-smoker Assessment/Plan All Active Problems Perforation of sigmoid colon due to diverticulitis (Acute) Obesity (Acute) Diabetes mellitus type 2 in obese (Acute) advance to low fiber diet WBC down to 11 with change to augmentin on d/c will d/c if gurpreet low fiber, f/u with Dr. Arias in 1 week Asha Prado M.D. Pager: [phone] [facility] [address] [place] [address], Outpatient [place], [address] [place] [address] Office: [phone] Code Visit Inpatient E&M: 19136 Subs Hosp L1
--- NOTE | 2018-06-26 09:56 | PCM.DC.GS ---
Discharge Diet: - - low fiber/diabetic Discharge Activity: Return to Normal Activity, May Shower Allergies/Adverse Reactions: Allergies atropine sulfate [From ] Allergy (Verified 06/22/18 18:41) Rash famotidine [From Pepcid] Allergy (Verified 06/22/18 18:41) Rash hyoscyamine sulfate [From ] Allergy (Verified 06/22/18 18:41) Rash ibuprofen Allergy (Verified 06/22/18 18:41) Rash phenobarbital [From ] Allergy (Verified 06/22/18 18:41) Rash scopolamine hydrobromide [From ] Allergy (Verified 06/22/18 18:41) Rash ketorolac tromethamine [From Toradol] Adverse Reaction (Verified 06/22/18 18:41) Nausea rofecoxib [From Vioxx] Adverse Reaction (Verified 06/22/18 18:41) Nausea tramadol Adverse Reaction (Verified 06/22/18 18:41) Nausea Medications to take at Discharge Glimepiride [Amaryl] 4 mg PO BID 08/28/16 Levothyroxine [Synthroid] 100 mcg PO DAILY 08/28/16 Lisinopril [Zestril] 10 mg PO DAILY 08/28/16 Metformin HCl [Glucophage] 1,000 mg PO BIDCM 08/28/16 Oxycodone HCl/Acetaminophen [Percocet 10-325 mg Tablet] 1 tablet PO BID PRN 08/28/16 Simvastatin [Zocor] 20 mg PO QHS 08/28/16 Sitagliptin Phosphate [Januvia] 100 mg PO DAILY 08/28/16 Albuterol IH (ProAir) [Proair Hfa (SP)Vent Pts] 1 - 2 puff INHALATION Q6H PRN PRN 09/03/16 Fluticasone 110 Mcg [Flovent (SP)] 2 puff INHALATION BID 09/03/16 Pantoprazole Sodium [Protonix] 40 mg PO DAILY 09/03/16 Ferrous Sulfate [Iron] 325 mg PO DAILY 05/28/17 Aspirin [Aspirin, Baby] 81 mg PO DAILY 06/22/18 Amoxicillin/Potassium Clav [Augmentin 875-125 Tablet] 1 each PO BID #20 tablet 06/26/18 The following prescriptions were given: Amoxicillin/Potassium Clav [Augmentin 875-125 Tablet] 1 each PO BID #20 tablet Primary Care Physician: Luis Molina DO [Primary Care Provider] - Test Results: Test results from this visit will be discussed in further detail at your follow-up appointment, if applicable. Please Follow Up With: Eliel Arias MD When: Call the office [phone] for a follow-up in 1 week Proposed Discharge Date: 06/26/18
--- NOTE | 2018-06-26 10:10 | PCM.DC.SUM ---
Discharge Date and Diagnosis Date of Admission: 06/22/18 Date of Discharge: 06/26/18 - Primary Discharge Diagnosis Perforated diverticulitis - Secondary Discharge Diagnosis Chronic Problems COPD (chronic obstructive pulmonary disease) (Chronic) Diabetes Hospital Course and Treatment Hospitalist for medical management Operations: None Procedures: None Summary of Care Provided: The patient is a 68 year old F patient presented to the ER due to left-sided abdominal pain on 07/19/1018. CT abdomen pelvis results below. Clinical Impression(s) from Imaging Studies Abdomen/Pelvis CT 06/22/18 19:33 IMPRESSION: Acute diverticulitis of the descending colon associated with extraluminal air consistent with bowel perforation. There is no associated abscess. Hiatal hernia. Atherosclerosis. ADDENDUM: 06/22/182041 IMPRESSION: Acute diverticulitis of the descending colon associated with extraluminal air consistent with bowel perforation. There is no associated abscess. Electronically Signed: Rabia Mckinney MD at 20:35 EDT Tel , Service support , Patient was medically managed for acute diverticulitis with microperforation with IV Zosyn. She was kept n.p.o. with IV fluids. Patient's blood sugars were monitored with blood sugar checks she did not require any insulin while she was NPO. Once patient's pain did improve, patient was able to be started on a clear liquid diet advance to a low fiber diet. Patient tolerated p.o. without any increased pain and patient was passing gas and having bowel function. Patient's leukocytosis did improve with the IV antibiotics. Patient was able to be DC'd with low fiber diet and Augmentin for additional 10 days. - Physical Exam General: Alert, Oriented x3, Cooperative, No apparent distress HEENT: Atraumatic Lungs: Normal air movement Cardiovascular: Regular rate Abdomen: Soft, Non Tender, Non-Distended Extremities: No clubbing, No cyanosis, No edema Neurological: Cranial nerves II-XII grossly intact Psych/Mental Status: Normal Affect Vital Signs Temp Pulse Resp BP Pulse Ox 98.1 F 82 16 131/79 H 94 06/26/18 07:51 06/26/18 07:51 06/26/18 07:51 06/26/18 07:51 06/26/18 07:51 Oxygen Flow Rate (L/min) 2 Oxygen Delivery Method Room Air Weight: 208 lb 12.444 oz Body Mass Index (BMI) 39.4 Intake and Output for Last 24 Hours 06/25/18 06/26/18 06/27/18 23:59 23:59 23:59 Intake Total 2584 / 2584 906 / 906 Output Total 3360 / 3360 2700 / 2700 Balance -776 / -776 -1794 / -1794 POC Glucose 06/26/18 11:42 POC Glucose 241 H Discharge Diet: - - low fiber/diabetic Discharge Activity: Return to Normal Activity, May Shower Home Medications: Medications to take at Discharge Glimepiride [Amaryl] 4 mg PO BID 08/28/16 Levothyroxine [Synthroid] 100 mcg PO DAILY 08/28/16 Lisinopril [Zestril] 10 mg PO DAILY 08/28/16 Metformin HCl [Glucophage] 1,000 mg PO BIDCM 08/28/16 Oxycodone HCl/Acetaminophen [Percocet 10-325 mg Tablet] 1 tablet PO BID PRN 08/28/16 Simvastatin [Zocor] 20 mg PO QHS 08/28/16 Sitagliptin Phosphate [Januvia] 100 mg PO DAILY 08/28/16 Albuterol IH (ProAir) [Proair Hfa (SP)Vent Pts] 1 - 2 puff INHALATION Q6H PRN PRN 09/03/16 Fluticasone 110 Mcg [Flovent (SP)] 2 puff INHALATION BID 09/03/16 Pantoprazole Sodium [Protonix] 40 mg PO DAILY 09/03/16 Ferrous Sulfate [Iron] 325 mg PO DAILY 05/28/17 Aspirin [Aspirin, Baby] 81 mg PO DAILY 06/22/18 Amoxicillin/Potassium Clav [Augmentin 875-125 Tablet] 1 each PO BID #20 tablet 06/26/18 Following Prescrptions Were Given to Patient: Amoxicillin/Potassium Clav [Augmentin 875-125 Tablet] 1 each PO BID #20 tablet Primary Care Physician: Luis Molina DO [Primary Care Provider] - Please Follow Up With: Eliel Arias MD When: Call the office [phone] for a follow-up in 1 week Medical Necessity - Tobacco Use Smoking Status: Never smoker Tobacco Use: Non-smoker Meaningful Use Info Meaningful Use Diagnoses (Choose all that apply): None applicable Code Visit Inpatient E&M: 67517 SNF Disch
[2018-06-26 11:51] LABS: Bedside Glucose 241 mg/dL (70-110)
--- NOTE | 2018-06-27 08:12 | DS.PCM_ITS ---
Discharge Date and Diagnosis Date of Admission: 06/22/18 Date of Discharge: 06/26/18 - Primary Discharge Diagnosis Perforated diverticulitis - Secondary Discharge Diagnosis Chronic Problems COPD (chronic obstructive pulmonary disease) (Chronic) Diabetes Hospital Course and Treatment Hospitalist for medical management Operations: None Procedures: None Summary of Care Provided: The patient is a 68 year old F patient presented to the ER due to left-sided abdominal pain on 07/19/1018. CT abdomen pelvis results below. Clinical Impression(s) from Imaging Studies Abdomen/Pelvis CT 06/22/18 19:33 IMPRESSION: Acute diverticulitis of the descending colon associated with extraluminal air consistent with bowel perforation. There is no associated abscess. Hiatal hernia. Atherosclerosis. ADDENDUM: 06/22/182041 IMPRESSION: Acute diverticulitis of the descending colon associated with extraluminal air consistent with bowel perforation. There is no associated abscess. Electronically Signed: Rabia Mckinney MD at 20:35 EDT Tel , Service support , Patient was medically managed for acute diverticulitis with microperforation with IV Zosyn. She was kept n.p.o. with IV fluids. Patient's blood sugars were monitored with blood sugar checks she did not require any insulin while she was NPO. Once patient's pain did improve, patient was able to be started on a clear liquid diet advance to a low fiber diet. Patient tolerated p.o. without any increased pain and patient was passing gas and having bowel function. Patient's leukocytosis did improve with the IV antibiotics. Patient was able to be DC'd with low fiber diet and Augmentin for additional 10 days. - Physical Exam General: Alert, Oriented x3, Cooperative, No apparent distress HEENT: Atraumatic Lungs: Normal air movement Cardiovascular: Regular rate Abdomen: Soft, Non Tender, Non-Distended Extremities: No clubbing, No cyanosis, No edema Neurological: Cranial nerves II-XII grossly intact Psych/Mental Status: Normal Affect Vital Signs Temp Pulse Resp BP Pulse Ox 98.1 F 82 16 131/79 H 94 06/26/18 07:51 06/26/18 07:51 06/26/18 07:51 06/26/18 07:51 06/26/18 07:51 Oxygen Flow Rate (L/min) 2 Oxygen Delivery Method Room Air Weight: 208 lb 12.444 oz Body Mass Index (BMI) 39.4 Intake and Output for Last 24 Hours 06/25/18 06/26/18 06/27/18 23:59 23:59 23:59 Intake Total 2584 / 2584 906 / 906 Output Total 3360 / 3360 2700 / 2700 Balance -776 / -776 -1794 / -1794 POC Glucose 06/26/18 11:42 POC Glucose 241 H Discharge Diet: - - low fiber/diabetic Discharge Activity: Return to Normal Activity, May Shower Home Medications: Medications to take at Discharge Glimepiride [Amaryl] 4 mg PO BID 08/28/16 Levothyroxine [Synthroid] 100 mcg PO DAILY 08/28/16 Lisinopril [Zestril] 10 mg PO DAILY 08/28/16 Metformin HCl [Glucophage] 1,000 mg PO BIDCM 08/28/16 Oxycodone HCl/Acetaminophen [Percocet 10-325 mg Tablet] 1 tablet PO BID PRN 08/28/16 Simvastatin [Zocor] 20 mg PO QHS 08/28/16 Sitagliptin Phosphate [Januvia] 100 mg PO DAILY 08/28/16 Albuterol IH (ProAir) [Proair Hfa (SP)Vent Pts] 1 - 2 puff INHALATION Q6H PRN PRN 09/03/16 Fluticasone 110 Mcg [Flovent (SP)] 2 puff INHALATION BID 09/03/16 Pantoprazole Sodium [Protonix] 40 mg PO DAILY 09/03/16 Ferrous Sulfate [Iron] 325 mg PO DAILY 05/28/17 Aspirin [Aspirin, Baby] 81 mg PO DAILY 06/22/18 Amoxicillin/Potassium Clav [Augmentin 875-125 Tablet] 1 each PO BID #20 tablet 06/26/18 Following Prescrptions Were Given to Patient: Amoxicillin/Potassium Clav [Augmentin 875-125 Tablet] 1 each PO BID #20 tablet Primary Care Physician: Luis Molina DO [Primary Care Provider] - Please Follow Up With: Eliel Arias MD When: Call the office [phone] for a follow-up in 1 week Medical Necessity - Tobacco Use Smoking Status: Never smoker Tobacco Use: Non-smoker Meaningful Use Info Meaningful Use Diagnoses (Choose all that apply): None applicable Code Visit Inpatient E&M: 17617 SNF Disch
--- NOTE | 2018-06-27 14:32 | CASEMGMT ---
RN CM DC PHONE CALL DC DATE: 06/26/18 DC Disposition: Home LACE/STRATA: 02/07 Intro role of CM to patient via phone. Pt states she is doing well, does not have questions re: dc instructions, prescriptions or f/u. No care improvement suggestions given. Gian SWANNN RN ACM
== END 2018-06-26 13:15 | disposition home or self-care (01) | DRG 392 ==
LOC: ED 19:46 → MS2 22:31 → MS3 06-25 14:11
PROVIDERS: Surgery; Admitting Provider Surgery; Emergency Provider Emergency Medicine; Family Provider Student in an Organized Health Care Education/Training Program; PCP Student in an Organized Health Care Education/Training Program; Referring Provider Surgery; Visit Provider Surgery
DX: K57.20 Diverticulitis of large intestine with perforation and abscess without bleeding (principal); E89.0 Postprocedural hypothyroidism; E11.9 Type 2 diabetes mellitus without complications; J44.9 Chronic obstructive pulmonary disease, unspecified; Z90.710 Acquired absence of both cervix and uterus; Z90.49 Acquired absence of other specified parts of digestive tract; E66.9 Obesity, unspecified; Z68.39 Body mass index [BMI] 39.0-39.9, adult; K21.9 Gastro-esophageal reflux disease without esophagitis; E78.5 Hyperlipidemia, unspecified; I10 Essential (primary) hypertension
CPT/HCPCS: 36415; 74176; 80048; 81001; 82962; 83605; 85025; 93005; 94640; 97802; 99284; J7030; J7050; J7120; A4216; J0744; J2405

== ENCOUNTER 2018-11-02 20:59 | Emergency (ER) | payer MEDICARE, SELFPAY ==
[2018-07-04 13:16] VITALS: BMI 39.4
[2018-11-02 20:59] VITALS: BP 129/74; PULSE 100; RESP 20; TEMP 35.9; O2SAT 94; BMI 37.6
[2018-11-02 23:16] VITALS: BP 128/76; PULSE 85; RESP 16; O2SAT 96
--- NOTE | 2018-11-02 23:49 | ED.VIS.GEN ---
History of Present Illness Chief Complaint: Back Informant: Patient Onset: Yesterday Narrative: Increasing lower neck and upper back pain since awakening yesterday. Reports had a mammogram done performed day prior, due to her stature reports that difficulties with the machine. She reports did not have pain right away however noticed symptoms yesterday morning. No previous similar symptoms in the past. She has been taking her scheduled naproxen twice a day given by her PCP. Pain worse with movement. This 2 months ago had some bilateral arm paresthesias that resolved. There is been no weakness. No difficulty ambulating. Brought here by her . No history of gastric ulcers or kidney injury. Prior similar symptoms: No Past Medical History - Allergies and Home Meds Allergies/Adverse Reactions: Allergies atropine sulfate [From ] Allergy (Verified 07/04/18 13:15) Rash famotidine [From Pepcid] Allergy (Verified 07/04/18 13:15) Rash hyoscyamine sulfate [From ] Allergy (Verified 07/04/18 13:15) Rash ibuprofen Allergy (Verified 07/04/18 13:15) Rash phenobarbital [From ] Allergy (Verified 07/04/18 13:15) Rash scopolamine hydrobromide [From ] Allergy (Verified 07/04/18 13:15) Rash ketorolac tromethamine [From Toradol] Adverse Reaction (Verified 07/04/18 13:15) Nausea rofecoxib [From Vioxx] Adverse Reaction (Verified 07/04/18 13:15) Nausea tramadol Adverse Reaction (Verified 07/04/18 13:15) Nausea Primary Care Physician: Luis Molina DO [Primary Care Provider] - Surgical History: appendectomy, cholecystectomy, hysterectomy, total hip arthroplasty, total knee arthroplasty, - - Subtotal thyroidectomy Smoking Status: Never smoker Review of Systems General: Denies: Chills, Fever, Sweats Eyes: Denies: Visual changes - bilaterally, Diplopia ENT: Denies: Rhinorrhea, Sore throat Cardiovascular: Denies: Chest pain, Palpitations Respiratory: Denies: Dyspnea, Cough, Dyspnea on exertion Gastrointestinal: Denies: Abdominal pain, Nausea, Vomiting, Diarrhea, Melena, Hematochezia Genitourinary: Denies: Dysuria, Hematuria, Frequency Musculoskeletal: Reports: Neck pain, Back pain. Denies: Extremity Pain Skin: Denies: Rash, Wounds Neurological: Denies: Headache, Weakness, Numbness Physical Exam Vital Signs/Narrative: Vital Signs Temp Pulse Resp BP Pulse Ox 11/02/18 23:16 85 16 128/76 H 96 11/02/18 20:59 96.6 F L 100 20 H 129/74 H 94 Inital Vital Signs reviewed: Yes General: Well nourished, Well developed, No Acute Distress Head: Normocephalic, Atraumatic Eyes: Perrl, EOMI ENT: Moist mucous membranes, No rhinorrhea Neck: Supple, - - Paracervical tenderness with tenderness more at the trapezius. No midline tenderness. Cardiovascular: Regular rate, Regular rhythm, No murmurs Respiratory: No distress, CTA bilaterally, Chest nontender Abdomen: Soft, Nontender, Nondistended, Normal bowel sounds Back: Normal Inspection, - - Parathoracic tenderness with no midline tenderness or step-offs. Extremities: Nontender, No edema Skin: Normal color, No rash Neurological: Alert, Oriented x3, Cranial nerves II-XII grossly intact, Normal Strength, Normal Sensation Psychological: Normal affect, Normal Mood Diagnostic/Tx/Re-eval - Medical Decision Making Patient's history with reported mammogram difficulties. Reproducible musculoskeletal pain. Discussed muscle strain at this point. She will continue her naproxen's twice a day she is placed on Valium to take at night for muscle relaxers. She will follow with her PCP for reevaluation. All questions were answered. ED Disposition - Plan for ED Patient: Disposition: Home or Assisted Living Diagnosis: Neck muscle strain, thoracic muscle strain Instructions: BACK AND NECK PAIN, General Prescriptions: Diazepam [Valium] 5 mg PO QHS PRN PRN #10 tablet PRN Reason: muscle pain Referrals: Luis Molina DO [Primary Care Provider] - 5-7 Days Additional Instructions: Continue naproxen, may cut the valium half if 1 tablet is too strong. Follow-up with your doctor for reevaluation further treatment.
[2018-11-03] MEDS: diazePAM 5 MG Tablet PO (00:06)
[2018-11-03 00:07] VITALS: RESP 18
== END 2018-11-03 00:07 | disposition home or self-care (01) ==
PROVIDERS: Emergency Provider Emergency Medicine; Family Provider Student in an Organized Health Care Education/Training Program; PCP Student in an Organized Health Care Education/Training Program
DX: S16.1XXA Strain of muscle, fascia and tendon at neck level, initial encounter (principal); S29.012A Strain of muscle and tendon of back wall of thorax, initial encounter; X58.XXXA Exposure to other specified factors, initial encounter; Y93.9 Activity, unspecified; Y92.9 Unspecified place or not applicable
CPT/HCPCS: 99283

== ENCOUNTER 2019-08-09 02:53 | Emergency (ER) | payer MEDICARE, MEDICAID, SELFPAY ==
[2019-08-09 02:54] VITALS: BP 178/80; PULSE 92; RESP 18; TEMP 36.8; O2SAT 96; BMI 39.9
--- NOTE | 2019-08-09 02:54 | ED.RN ---
CALLED FOR EKG PER RN REQUEST, PULLED OLD EKGS FOR
--- NOTE | 2019-08-09 03:01 | EKG12_ITS ---
Test Reason : CP Blood Pressure : / mmHG Vent. Rate : 089 BPM Atrial Rate : 089 BPM P-R Int : 146 ms QRS Dur : 088 ms QT Int : 374 ms P-R-T Axes : 048 -02 008 degrees QTc Int : 455 ms Normal sinus rhythm Nonspecific ST abnormality Abnormal ECG Confirmed by SAMPSON ROBERTS, LEIGHANN ([id number]), multimedia editor MERRICK HERNANDEZ ([id number]) on 08/15/2019 2:18:58 PM Referred By: BREA Confirmed By:LEIGHANN BRADEN MD
--- NOTE | 2019-08-09 03:02 | ED.VIS.CHEST ---
History of Present Illness Chief Complaint: Chest Pain Informant: Patient Onset: Hours - 1 Activity at onset: Sleep Timing: Intermittent, Lasts - 20-30 min Quality: Sharp Location: - - Right chest, then left chest, now both Current Severity: Mild Maximum Severity: Moderate Worsened By: Nothing Relieved By: Nothing Associated Symptoms: Dyspnea - at some point; pt not sure; not as much now, Cough - chronic since last year and unchanged. Negative for: Nausea, Diaphoresis, Fever, Lightheadedness, Acid Reflux, Palpitations Narrative: Patient without a history of heart issues, but has COPD without home oxygen, states she has had pneumonia before, and a right partial lobectomy because of a benign mass. States she was short of breath earlier due to wheezing, that is not so bad now or since she has had this discomfort in the last hour. Woke her up from sleep. States that her right arm felt numb for most of the past hour but now that is gone. She denies any other neurologic symptoms. No radiation into her back or neck or jaw. No recent leg pain or swelling. No history of DVT or PE. Takes a baby aspirin a day, the last one was almost 24 hours ago. No anticoagulants. - Past Medical History (1) Arthritis Status: Chronic (2) Diabetes mellitus type 2 in obese Status: Chronic (3) Obesity Status: Chronic (4) COPD (chronic obstructive pulmonary disease) Status: Chronic Past Medical History - Allergies and Home Meds Allergies/Adverse Reactions: Allergies atropine sulfate [From ] Allergy (Verified 08/09/19 03:02) Rash famotidine [From Pepcid] Allergy (Verified 08/09/19 03:02) Rash hyoscyamine sulfate [From ] Allergy (Verified 08/09/19 03:02) Rash ibuprofen Allergy (Verified 08/09/19 03:02) Rash phenobarbital [From ] Allergy (Verified 08/09/19 03:02) Rash scopolamine hydrobromide [From ] Allergy (Verified 08/09/19 03:02) Rash ketorolac tromethamine [From Toradol] Adverse Reaction (Verified 08/09/19 03:02) Nausea rofecoxib [From Vioxx] Adverse Reaction (Verified 08/09/19 03:02) Nausea tramadol Adverse Reaction (Verified 08/09/19 03:02) Nausea Primary Care Physician: Luis Molina DO [Primary Care Provider] - Surgical History: appendectomy, cholecystectomy, hysterectomy, total hip arthroplasty, total knee arthroplasty, - - Subtotal thyroidectomy Lives: Spouse/ Significant Other Smoking Status: Never smoker Review of Systems General: Denies: Chills, Fever, Sweats Eyes: Denies: Visual changes - bilaterally, Diplopia ENT: Denies: Bilateral ear pain, Rhinorrhea, Sore throat Cardiovascular: Reports: Chest pain. Denies: Palpitations Respiratory: Reports: Dyspnea, Cough, Sputum - occasional. no hemoptysis.. Denies: Orthopnea Gastrointestinal: Denies: Abdominal pain, Nausea, Vomiting, Diarrhea, Melena, Hematochezia Genitourinary: Denies: Dysuria, Hematuria, Frequency Musculoskeletal: Denies: Back pain, Swelling, Extremity Pain Skin: Denies: Rash, Wounds Neurological: Denies: Headache, Weakness, Numbness Physical Exam Vital Signs/Narrative: Vital Signs Temp Pulse Resp BP Pulse Ox 08/09/19 02:54 98.3 F 92 18 178/80 H 96 Inital Vital Signs reviewed: Yes General: Well nourished, Well developed, Obese, No Acute Distress - Conversive in full sentences. Well-appearing. Head: Normocephalic, Atraumatic Eyes: Perrl, EOMI ENT: Moist mucous membranes, No rhinorrhea Neck: Supple, Nontender, No lymphadenopathy, No JVD Cardiovascular: Regular rate, Regular rhythm, No murmurs Respiratory: No distress, Chest nontender, Wheezing - Expiratory bilaterally, symmetric, Diminished - Throughout, symmetric. Negative for: Rales, Rhonchi Abdomen: Soft, Nontender, Nondistended, Normal bowel sounds Back: Nontender, Normal Inspection Extremities: Nontender, No edema. Negative for: Calf Tenderness Skin: Normal color, No rash Neurological: Alert, Oriented x3, Cranial nerves II-XII grossly intact, Normal Strength, Normal Sensation Psychological: Normal affect, Normal Mood Diagnostic/Tx/Re-eval Impressions Chest X-Ray 08/09/19 04:00 IMPRESSION: There is scarring at the RIGHT lung base. There are NO acute infiltrates. There is NO pleural effusion or pneumothorax. Normal size heart. Electronically Signed: Andre Baker MD at 4:20 EDT , Service support , 08/09/19 04:00 Chest 1 View (Portable) [RAD] Stat Laboratory Results 08/09/19 08/09/19 08/09/19 03:02 03:02 03:30 WBC 15.1 H RBC 4.66 Hgb 12.8 Hct 41.1 MCV 88.2 MCH 27.5 MCHC 31.1 L RDW Std Deviation 45.9 H RDW Coeff of Wen 14.3 Plt Count 219 MPV 11.4 Immature Gran % (Auto) 0.400 Neut % (Auto) 61.8 Lymph % (Auto) 23.0 [place] % (Auto) 6.7 Eos % (Auto) 7.8 H Baso % (Auto) 0.3 Absolute Neuts (auto) 9.4 H Absolute Lymphs (auto) 3.48 Nucleated RBC % 0 Sodium Cancelled 138 Potassium Cancelled 3.9 Chloride Cancelled 101 Carbon Dioxide Cancelled 30.0 Anion Gap Cancelled 7 BUN Cancelled 24 H Creatinine Cancelled 0.93 Estim Creat Clear Calc Cancelled 42.47 Est GFR (MDRD) Af Amer Cancelled 77 Est GFR (MDRD) Non-Af Cancelled 63 BUN/Creatinine Ratio Cancelled 25.8 H Glucose Cancelled 188 H Calcium Cancelled 9.3 Troponin I Cancelled < 0.015 - Rhythm Strip Rhythm Strip: Sinus Rhythm Rate: 89 Ectopy: None - EKG Initial EKG Interpretation: Sinus Rhythm, No Acute Injury Pattern, Non-Specific ST Changes Prior: Unchanged Treatment: Aspirin, - - DuoNeb treatment GRACIELA Risk: Age >/= 65, ASA within 7 days Score: 2 - Medical Decision Making Patient was initially given a duo nebulizer treatment. She said that the pain in the right side of her chest resolved, but she still had some minor pain just left of sternum, and she developed a new mild discomfort in the middle of her back. She was then given a GI cocktail while we were awaiting test results, which came back normal/unremarkable including chest x-ray, showing chronic scarring at the right base unchanged and nothing else acute. Troponin is negative. I am not concerned for pulmonary embolus here. Her pressure was high when she first was measured, but on recheck it is 126/68. After the GI cocktail her back pain is resolved. She still has some left-sided lower chest pain. It is reproducible on palpation. That is the only symptom she has right now. I do not think this is cardiac. I do not think that she needs to have a delta troponin or be admitted for provocative testing at this time. For persistent pain I recommend following up with her doctor, she is comfortable with that plan and she was given a couple extra aspirin for their anti-inflammatory effect on her chest wall musculature. ED Disposition - Plan for ED Patient: Disposition: Home or Assisted Living Diagnosis: Atypical chest pain, COPD (chronic obstructive pulmonary disease) Instructions: ED Chest Pain NonCardiac Referrals: Luis Molina, [Primary Care Provider] - 3-5 Days if not improving
[2019-08-09 03:03] VITALS: O2SAT 97
[2019-08-09] MEDS: Aspirin 81 MG TAB.CHEW 162 MG PO ×2 (03:07→04:54)
[2019-08-09 03:10] VITALS: PULSE 85; RESP 16
[2019-08-09] MEDS: Ipratropium/Albuterol Sulfate 3 ML AMPUL.NEB INHALATION (03:10)
[2019-08-09 03:11] LABS: Absolute Lymphocyte Count 3.48 X10^3/uL (0.83-4.51); Absolute Neutrophil Count 9.4 X10^3/uL (2.0-7.7); Basophil# 0.05 X10^3/uL; Basophil% 0.3 % (0-1); Eosinophil# 1.18 X10^3/uL; Eosinophils% 7.8 % (0-5); Hematocrit 41.1 % (37-47); Hemoglobin 12.8 g/dL (12.0-15.0); Lymphocyte # 3.48 X10^3/ul (4.0); Mean Corp Hgb Conc 31.1 g/dL (32-36); Mean Corpuscular Hgb 27.5 pg (27.0-32.0); Mean Corpuscular Volume 88.2 fL (81-99); Mean Platelet Vol. 11.4 fl (6.2-12.0); Monocyte# 1.01 X10^3/uL; Monocyte% 6.7 % (0-10); NRBC Flagged by Analyzer 0 % (0-5); Neutrophil # 9.36 X10^3/uL (2.7-7.7); Neutrophil % 61.8 % (47-70); Platelet Count 219 K/mm3 (150-450); RBC Distribution Width CV 14.3 % (11.6-14.6); RBC Distribution Width SD 45.9 fl (35.1-43.9); Red Blood Count 4.66 M/mm3 (4.2-5.4); White Blood Count 15.1 K/mm3 (4.4-11.0)
[2019-08-09 03:56] LABS: Anion Gap 7 (5-15); BUN 24 mg/dL (7-18); BUN/Creat Ratio 25.8 RATIO (10-20); Calcium,Total 9.3 mg/dL (8.5-10.1); Chloride 101 mmol/L (98-107); Creatinine, Serum 0.93 mg/dL (0.55-1.02); EST Glomerular Filtration Rate 63 mL/min (>60); Est Glom Filt Rate - Afr Amer 77 mL/min (>60); Estimated Creatinine Clearance 42.47 ml/min; Glucose 188 mg/dL (74-106); Potassium 3.9 mmol/L (3.5-5.1); Sodium Level 138 mmol/L (136-145)
--- NOTE | 2019-08-09 04:00 | RAD_ITS ---
STUDY: X-RAY CHEST REASON FOR EXAM: Female, 69 years old. CHEST PAIN, CHRONIC COUGH, RIGHT ARM NUMBNESS TECHNIQUE: Frontal view COMPARISON: None. FINDINGS: There is scarring at the RIGHT lung base. There are NO acute infiltrates. There is NO pleural effusion or pneumothorax. Normal size heart. Normal mediastinum and justen. Normal visualized pulmonary arteries. Normal visualized aortic arch and descending thoracic aorta. Normal visualized thoracic spine. Normal visualized ribs, clavicles, and shoulders. There is no demonstrated abnormality of the visualized soft tissue structures of the upper abdomen. RAD/Chest 1 View (Portable) IMPRESSION: There is scarring at the RIGHT lung base. There are NO acute infiltrates. There is NO pleural effusion or pneumothorax. Normal size heart. Electronically Signed: Andre Baker MD at 4:20 EDT , Service support ,
[2019-08-09 04:21] VITALS: BP 126/68; PULSE 91; RESP 20; O2SAT 95
[2019-08-09] MEDS: Mag Hydrox/Al Hydrox/Simeth 30 ML UDC PO (04:26)
[2019-08-09 04:55] VITALS: BP 132/84; PULSE 92; RESP 18; O2SAT 94
== END 2019-08-09 04:58 | disposition home or self-care (01) ==
PROVIDERS: Emergency Provider Emergency Medicine; PCP Student in an Organized Health Care Education/Training Program
DX: R07.89 Other chest pain (principal); J44.9 Chronic obstructive pulmonary disease, unspecified; E66.9 Obesity, unspecified; E11.9 Type 2 diabetes mellitus without complications; M19.90 Unspecified osteoarthritis, unspecified site; Z79.82 Long term (current) use of aspirin; Z79.84 Long term (current) use of oral hypoglycemic drugs; Z79.899 Other long term (current) drug therapy
CPT/HCPCS: 71045; 80048; 84484; 85025; 93005; 94640; 99285; A4216

== ENCOUNTER → 2021-08-27 | Outpatient (CLI) | payer MEDICARE, MEDICAID, SELFPAY | END | disposition home or self-care (01) | PROVIDERS: PCP Student in an Organized Health Care Education/Training Program; Referring Provider Student in an Organized Health Care Education/Training Program; Visit Provider Student in an Organized Health Care Education/Training Program | DX: G47.10 Hypersomnia, unspecified (principal); R06.83 Snoring; R06.00 Dyspnea, unspecified | CPT/HCPCS: 95810 ==

== ENCOUNTER → 2021-10-13 | Outpatient (CLI) | payer MEDICARE, MEDICAID, SELFPAY | END | disposition home or self-care (01) | LOC: SL 20:16 | PROVIDERS: PCP Student in an Organized Health Care Education/Training Program; Visit Provider Student in an Organized Health Care Education/Training Program | DX: G47.33 Obstructive sleep apnea (adult) (pediatric) (principal) | CPT/HCPCS: 95811 ==

== ENCOUNTER 2023-02-04 20:03 | Emergency (ER) | payer MEDICARE, MEDICAID, SELFPAY ==
[2023-02-04 20:05] VITALS: BP 149/94; PULSE 122; RESP 18; TEMP 36.8; O2SAT 98; BMI 33.4
[2023-02-04 20:22] LABS: Absolute Lymphocyte Count 2.05 X10^3/uL (0.83-4.51); Absolute Neutrophil Count 12.7 X10^3/uL (2.0-7.7); Basophil# 0.04 X10^3/uL; Basophil% 0.3 % (0-1); Eosinophil# 0.45 X10^3/uL; Eosinophils% 2.8 % (0-5); Hematocrit 40.7 % (37-47); Hemoglobin 12.2 g/dL (12.0-15.0); Lymphocyte # 2.05 X10^3/ul (0.83-4.51); Lymphocyte % 12.9 % (19-41); Mean Corpuscular Hgb 25.7 pg (27.0-32.0); Mean Corpuscular Volume 85.9 fL (81-99); Mean Platelet Vol. 11.1 fl (6.2-12.0); Monocyte# 0.61 X10^3/uL; Monocyte% 3.8 % (0-10); NRBC Flagged by Analyzer 0 % (0-5); Neutrophil # 12.66 X10^3/uL (2.7-7.7); Neutrophil % 79.6 % (47-70); Platelet Count 266 K/mm3 (150-450); RBC Distribution Width CV 17.4 % (11.6-14.6); RBC Distribution Width SD 54.9 fl (35.1-43.9); Red Blood Count 4.74 M/mm3 (4.2-5.4); White Blood Count 15.9 K/mm3 (4.4-11.0)
[2023-02-04 20:39] LABS: ALB/GLOB Ratio 0.9 RATIO (0.9-2.4); AST(SGOT) 8 U/L (15-37); Alanine Aminotransfer ALT/SGPT 20 U/L (13-56); Albumin, Serum 3.8 g/dL (3.2-5.0); Alkaline Phosphatase 123 U/L (45-117); Anion Gap 6 (5-15); BUN 23 mg/dL (7-18); BUN/Creat Ratio 18.9 RATIO (10-20); Chloride 111 mmol/L (98-107); Creatinine, Serum 1.22 mg/dL (0.55-1.02); EST Glomerular Filtration Rate 46 mL/min (>60); Est Glom Filt Rate - Afr Amer 55 mL/min (>60); Estimated Creatinine Clearance 30.99 ml/min; Globulin 4.3 g/dL (2.2-4.2); Glucose 279 mg/dL (74-106); Potassium 4.1 mmol/L (3.5-5.1); Protein, Total 8.1 g/dL (6.4-8.2); Sodium Level 143 mmol/L (136-145)
[2023-02-04 20:40] LABS: Mucous, Urine 0 SEEN /hpf (<or=2+)
[2023-02-04 20:54] LABS: Color, Urine Yellow (Yellow); Glucose, Dipstick 1000 mg/dl (Normal); Ketone-Dipstick Negative (Negative); Leukocyte Esterase-Dipstick 500 /ul (Negative); Nitrite-Dipstick Negative (Negative); Occult Blood-Urine 250 /ul (Negative); Protein-Dipstick 30 mg/dl (Negative); Specific Gravity, Urine 1.015 (1.002-1.030); Urine Bilirubin Dipstick Negative (Negative); Urine Clarity Sl. Cloudy (Clear); Urine Urobilinogen Normal (Normal)
[2023-02-04 21:27] LABS: Bacteria RARE /hpf (None Seen); Red Blood Cells-Urine 50-100 SEEN /hpf (0-5); Squamous Epithelial Cells - UA 5-10 SEEN /hpf (5-10); White Blood Cells 50-100 SEEN /hpf (0-5)
[2023-02-04 21:28] LABS: Amorphous Sediment 1+ URATE
[2023-02-04 21:51] VITALS: BP 126/70; PULSE 111; RESP 18; O2SAT 96
--- NOTE | 2023-02-04 22:48 | CT_ITS ---
INDICATION: GI bleed / ? Diverticular bleeding EXAMINATION: CTA Abdomen and Pelvis WO/W Contrast Injection TECHNIQUE: Helically acquired images were obtained of the abdomen and pelvis with sagittal and coronal reconstructed images. Noncontrast images were not obtained. Three-D reconstructed images were reviewed. Individualized dose optimization techniques were used for this CT. IV contrast dosage and agent: 100 mL of Isovue-370. Oral contrast: None. COMPARISON: 06/22/2018 CT. FINDINGS: VESSELS: No abdominal aortic aneurysm or dissection. LIVER: No evidence of a mass. No intrahepatic or extrahepatic biliary duct dilation. GALLBLADDER: Not visualized. PANCREAS: No focal solid or cystic mass. No evidence of pancreatitis. SPLEEN: Normal. ADRENAL GLANDS: Normal. KIDNEYS AND URETERS: No urinary tract stone. No hydronephrosis or hydroureter. No significant asymmetric perinephric stranding. URINARY BLADDER: Unremarkable. BOWEL: Diverticulosis and thickening of the sigmoid colon. No significant adjacent fat stranding. No evidence of a gastrointestinal bleed. Appendix appears normal. No evidence of bowel obstruction. REPRODUCTIVE ORGANS: No evidence of a pelvic mass. PERITONEUM: No intraabdominal free fluid or free air. LYMPH NODES: No pathologically enlarged mesenteric or retroperitoneal lymph nodes. ABDOMINAL WALL: No abdominal or pelvic wall hernia. BONES: No acute abnormality. LOWER CHEST: Calcified granulomas in the left lower lobe. CT/CTA Abd/Pelvis W/WO Contrast IMPRESSION: 1. No evidence of a gastrointestinal bleed. 2. Diverticulosis with thickening of the sigmoid colon and no adjacent fat stranding. Mild diverticulitis should be considered if correlated clinically. Electronically Signed: Pablo Hogan DO at 0:20 EST ,
[2023-02-04] MEDS: 0.9% Normal Saline (1000mL) 1,000 ML 999 ML IV (23:27)
[2023-02-04 23:28] LABS: International Normalized Ratio 1.1; Partial Thromboplast Time 27.9 Seconds (24.1-36.2); Prothrombin Time (Protime)PT. 13.7 SECONDS (11.7-14.9)
[2023-02-05 01:00] VITALS: BP 112/58; O2SAT 98
--- NOTE | 2023-02-05 02:28 | EDS_ITS ---
HPI History of Present Illness Chief Complaint: GI Bleed Informant: patient and family Narrative Narrative: Patient is a 72-year-old female with past medical history of COPD diabetes and diverticulitis/diverticulosis. She states that today she developed the urge to go to the bathroom around noon and had bright red blood per rectum. She states that throughout the day she had approximately 5-6 episodes of this. She denies any history of bleeding disorder or blood thinner use but states that with the persistent bleeding she was concerned and therefore comes in for evaluation. Patient states that the blood only occurs with bowel movements and she is not limon ve persistent rectal bleeding at rest. She does state there is faint abdominal pain with this [facility] Medical History (Updated 02/06/23 @ 01:[address] Michael Lopez DO) COPD (chronic obstructive pulmonary disease) Diabetes mellitus type 2 in obese Obesity Perforation of sigmoid colon due to diverticulitis Home Medications glimepiride 4 mg tablet 4 mg PO BID diabetes 08/28/16 [History Last Taken 06/22/18] lisinopril 10 mg tablet 10 mg PO DAILY blood pressure 08/28/16 [History Last Taken 06/22/18] oxycodone-acetaminophen 10 mg-325 mg tablet 1 tab PO BID PRN Pain 08/28/16 [History Last Taken 06/21/18] simvastatin 20 mg tablet 20 mg PO QHS cholesterol 08/28/16 [History Last Taken 06/22/18] sitagliptin phosphate 100 mg tablet 100 mg PO DAILY diabetes 08/28/16 [History Last Taken 06/22/18] albuterol sulfate 90 mcg/actuation aerosol inhaler 1 - 2 puff inhalation Q6H PRN PRN COPD 09/03/16 [History Last Taken 06/22/18] fluticasone propionate 110 mcg/actuation HFA aerosol inhaler 2 puff inhalation BID COPD 09/03/16 [History Last Taken 06/22/18] pantoprazole 40 mg tablet,delayed release 40 mg PO DAILY GERD 09/03/16 [History Last Taken 06/22/18] ferrous sulfate 325 mg (65 mg iron) tablet 325 mg PO DAILY supplement 05/28/17 [History Last Taken 06/22/18] aspirin 81 mg chewable tablet 81 mg PO DAILY heart health 06/22/18 [History Last Taken 04/03/19] empagliflozin 10 mg tablet (Jardiance) 10 mg PO DAILY 02/04/23 [History Last Taken 02/04/23] levothyroxine 112 mcg tablet 112 mcg PO DAILY 02/04/23 [History Last Taken 02/04/23] amoxicillin 875 mg-potassium clavulanate 125 mg tablet 1 tab PO BID 7 days #14 tabs 02/05/23 [Rx Last Taken Unknown] Allergy/AdvReac Type Severity Reaction Status Date / Time atropine sulfate Allergy Rash Verified 02/04/23 20:07 [From ] famotidine [From Pepcid] Allergy Rash Verified 02/04/23 20:07 hyoscyamine sulfate Allergy Rash Verified 02/04/23 20:07 [From ] ibuprofen Allergy Rash Verified 02/04/23 20:07 phenobarbital [From ] Allergy Rash Verified 02/04/23 20:07 scopolamine hydrobromide Allergy Rash Verified 02/04/23 20:07 [From ] ketorolac tromethamine AdvReac Nausea Verified 02/04/23 20:07 [From Toradol] rofecoxib [From Vioxx] AdvReac Nausea Verified 02/04/23 20:07 tramadol AdvReac Nausea Verified 02/04/23 20:07 Family History (Updated 07/04/18 @ 13:14 by Dinah Charles) Brother Diabetes Heart disease Hypertension CAD (coronary artery disease) Surgical History S/P appendectomy S/P hysterectomy S/P laparoscopic cholecystectomy s/p right lung lobectomy Social History (Updated 07/04/18 @ 13:[address] Eliel Arias MD) Smoking Status: Never smoker alcohol intake: never ROS ROS ED Constitutional Constitutional ED: Denies chills or fever(s) Eyes Eyes: Denies blurry vision or change in vision ENT ENT ED: Denies sore throat Cardiovascular Cardiovascular: Denies chest pain, palpitations or racing heartbeat Respiratory/Chest Respiratory/Chest: Denies cough or dyspnea Gastrointestinal Gastrointestinal: Reports abdominal pain and other Details: Positive bloody diarrhea ; Denies diarrhea, nausea or vomiting Genitourinary Genitourinary ED: Denies dysuria or hematuria Musculoskeletal Musculoskeletal: Denies back pain or myalgias Integumentary Denies rash Neurologic Neurologic: Denies headache(s) Hematologic/Lymphatic Hematologic/Lymphatic: Denies easy bleeding or easy bruising EXAM Physical Exam Const Vital Signs: 02/05/23 02:48 Pulse Rate 90 Respiratory Rate 18 Blood Pressure 98/68 Blood Pressure Mean 78 Positive well nourished and well developed General Appearance ED: well developed; Negative for pallor HEENT Reports moist mucous membranes HEENT Narrative: No signs of infection in the posterior pharynx no airway edema or compromise Eyes PERRL and EOMs intact bilaterally General Eye ED: Negative for pale conjunctiva or scleral icterus Neck supple Resp normal respiratory effort and clear to auscultation bilaterally Cardio regular rate and regular rhythm Rate: other Other Details: Heart is regular rate and rhythm without murmurs rubs or gallops Radial and carotid pulses are equal and symmetric GI non-distended and no masses GI Narrative: Abdomen is soft and nondistended with normal active bowel sounds. There is faint pain with palpation in the left lower quadrant without voluntary guarding or rigidity. No pulsatile mass or fluid wave. Auscultation: normoactive bowel sounds Palpation: soft Narrative: Patient deferred Extremity normal to inspection Neuro oriented x3, CN's II-XII intact bilaterally and no sensory deficits noted Sensorium / Orientation: alert Motor Exam: strength 5/5 throughout Psych mental status grossly normal Skin no rashes or lesions noted General Skin Exam: Negative for jaundice or pallor MDM MDM MDM Narrative Medical decision making narrative: Present to the ER awake and alert and in no acute distress. She reported 5-6 episodes of bloody diarrhea throughout the day without history of bleeding disorder or blood thinner use. Initial diagnosis is for diverticular bleeding versus acute diverticulitis versus upper GI bleed versus ruptured hemorrhoid or anal fissure. Patient blood work is obtained which showed mild cytosis at 15.9 with slight left shift as her absolute neutrophil count is elevated 12.7. Despite the reported bright red blood per rectum H&H is stable and coagulation studies are normal and platelet count is normal as well. Patient's BUN is slightly elevated which is nonspecific but could be related to a GI bleed. A CTA was obtained to check for the source of the bleed. CT revealed diverticular disease without active bleeding but did show faint stranding concerning for development of diverticulitis. As patient has a elevated white count and slight pain in the left lower quadrant on exam I do feel that her symptoms are most likely related to atypical diverticulitis leading to bloody diarrhea instead of the most common symptom of pain with constipation. Patient is not requiring a blood transfusion and is hemodynamically stable as she is not hypotensive or tachycardic upon repeat evaluation. Therefore I will place patient on antibiotics to cover for diverticulitis and she can follow-up on an outpatient basis. She does understand that if symptoms worsen or she develops lighthe adedness or syncope that she needs to return for repeat evaluation and potential admission History & Record Review Discussion w/independent historian: Patient and Family Lab Data Attestation: I reviewed the patient's lab results. Labs: Laboratory Results - last 24 hr 02/04/23 02/04/23 02/04/23 20:14 20:32 23:08 WBC 15.9 H RBC 4.74 Hgb 12.2 Hct 40.7 MCV 85.9 MCH 25.7 L MCHC 30.0 L RDW Std Deviation 54.9 H RDW Coeff of Wen 17.4 H Plt Count 266 MPV 11.1 Immature Gran % (Auto) 0.600 Neut % (Auto) 79.6 H Lymph % (Auto) 12.9 L [place] % (Auto) 3.8 Eos % (Auto) 2.8 Baso % (Auto) 0.3 Absolute Neuts (auto) 12.7 H Absolute Lymphs (auto) 2.05 Nucleated RBC % 0 PT 13.7 INR 1.1 APTT 27.9 Sodium 143 Potassium 4.1 Chloride 111 H Carbon Dioxide 26.0 Anion Gap 6 BUN 23 H Creatinine 1.22 H Estim Creat Clear Calc 30.99 Est GFR (MDRD) Af Amer 55 L Est GFR (MDRD) Non-Af 46 L BUN/Creatinine Ratio 18.9 Glucose 279 H Calcium 9.0 Total Bilirubin 0.20 AST 8 L ALT 20 Alkaline Phosphatase 123 H Total Protein 8.1 Albumin 3.8 Globulin 4.3 H Albumin/Globulin Ratio 0.9 Urine Color Yellow Urine Clarity Sl. Cloudy Urine pH 6.0 Ur Specific [place] 1.015 Urine Protein 30 H Urine Glucose (UA) 1000 H Urine Ketones Negative Urine Occult Blood 250 H Urine Nitrite Negative Urine Bilirubin Negative Urine Urobilinogen Normal Ur Leukocyte Esterase 500 H Urine RBC 50-100 SEEN Urine WBC 50-100 SEEN Ur Squamous Epith Cells 5-10 SEEN Amorphous Sediment 1+ URATE Urine Bacteria RARE Urine Mucus 0 SEEN Radiography Diagnostic Testing: Clinical Impression(s) from Imaging Studies Abdomen/Pelvis CTA 02/04/23 22:48 IMPRESSION: 1. No evidence of a gastrointestinal bleed. 2. Diverticulosis with thickening of the sigmoid colon and no adjacent fat stranding. Mild diverticulitis should be considered if correlated clinically. Electronically Signed: Pablo KunzDO verenice at 0:20 EST , Discharge Plan Triage Chief Complaint: GI Bleed ED Provider: Michael Lopez Dx/Rx/DC Orders Clinical Impression: Diverticulitis, Diabetes mellitus type 2 in obese, COPD (chronic obstructive pulmonary disease) Instructions: Diverticulosis and Diverticulitis Prescriptions: New amoxicillin-pot clavulanate 875-125 mg tablet 1 tab PO BID 7 Days Qty: 14 0RF No Action oxycodone-acetaminophen 1 EACH tablet 1 tab PO BID PRN (Reason: Pain) simvastatin 20 MG tablet 20 mg PO QHS Patient Comments: TAKE ONE TABLET BY MOUTH EVERY NIGHT AT BEDTIME lisinopril 10 MG tablet 10 mg PO DAILY Patient Comments: glimepiride 4 MG tablet 4 mg PO BID Patient Comments: TAKE ONE TABLET BY MOUTH TWICE DAILY WITH MEALS sitagliptin phosphate 100 MG tablet 100 mg PO DAILY Patient Comments: TAKE ONE TABLET BY MOUTH ONCE DAILY pantoprazole 40 MG tablet 40 mg PO DAILY albuterol sulfate 1 PUFF inhaler 1 - 2 puff inhalation Q6H PRN PRN (Reason: COPD) fluticasone propionate 1 INHALER inhaler 2 puff inhalation BID ferrous sulfate 325 MG tablet 325 mg PO DAILY aspirin 81 MG tablet,chewable 81 mg PO DAILY levothyroxine 112 mcg tablet 112 mcg PO DAILY Patient Comments: take 1 tablet by mouth once daily Jardiance 10 mg tablet 10 mg PO DAILY Patient Comments: take 1 tablet by mouth every morning Primary Care Provider: Luis Molina Referrals: Luis Molina DO [Primary Care Provider] - Activity Restrictions/Additional Instructions: The scan showed no area of active bleeding but did show mild inflammatory changes concerning for developing diverticulitis. Take your antibiotic as directed to help resolve this. If you have a few episodes (2-3) of bloody diarrhea over the next few days this is okay but if you develop severe abdominal pain have persistent bleeding or feel lightheaded dizzy or pass out please return for repeat evaluation Disposition Disposition: Home, Self Care Discharge Date/Time: 02/05/23 02:50
[2023-02-05 02:48] VITALS: BP 98/68; PULSE 90; RESP 18
[2023-02-05] MEDS: Amox/Clavulanate 875 MG Tablet PO (02:49)
== END 2023-02-05 02:50 | disposition home or self-care (01) ==
PROVIDERS: Emergency Provider Emergency Medicine; PCP Student in an Organized Health Care Education/Training Program; Visit Provider Emergency Medicine
DX: K57.92 Diverticulitis of intestine, part unspecified, without perforation or abscess without bleeding (principal); J44.9 Chronic obstructive pulmonary disease, unspecified; E11.69 Type 2 diabetes mellitus with other specified complication; Z79.51 Long term (current) use of inhaled steroids; Z79.899 Other long term (current) drug therapy; Z79.84 Long term (current) use of oral hypoglycemic drugs; Z90.49 Acquired absence of other specified parts of digestive tract; Z90.710 Acquired absence of both cervix and uterus; E66.9 Obesity, unspecified
CPT/HCPCS: 74174; 80053; 81001; 85025; 85610; 85730; 96360; 96361; 99282; J7030; Q9967; A4216

== ENCOUNTER 2024-07-27 20:26 | Inpatient (IN) | payer MEDICARE, MEDICAID, SELFPAY ==
[2024-07-27 20:31] VITALS: BP 168/89; PULSE 134; RESP 20; TEMP 36.6; O2SAT 97; BMI 35.0
[2024-07-27 21:29] VITALS: BP 127/83; PULSE 112; O2SAT 99
[2024-07-27 21:59] VITALS: BP 127/83; PULSE 111; O2SAT 98
[2024-07-27 22:12] LABS: Mucous, Urine 0 SEEN /hpf (<or=2+); Squamous Epithelial Cells - UA 0 SEEN /hpf (5-10)
--- NOTE | 2024-07-27 22:15 | CT_ITS ---
PROCEDURE: CTA ABD/PELVIS W/WO CONTRAST 07/27/2024 REASON FOR EXAM: GI BLEED TECHNIQUE: CTA imaging of the abdomen and pelvis with intravenous contrast. Multiplanar and multisequence images were obtained. CONTRAST: Omnipaque 350 VOLUME: 100 mL Not Provided Gauge IV One or more dose reduction techniques were used (e.g., Automated exposure control, adjustment of the mA and/or kV according to patient size, use of iterative reconstruction technique). COMPARISON: CT abdomen and pelvis 02/04/2023 FINDINGS: Aorta: Abdominal aorta is normal in size. No significant atherosclerotic plaque. No evidence of aneurysm or dissection. Iliac Arteries: Iliac arteries are normal in size with no significant plaque or stenosis. Celiac: Normal. SMA: Normal. AIYANA : Normal. Right Renal: 2 renal arteries are noted. No significant atherosclerotic calcification or stenosis. Left Renal: Single well-perfused renal artery without hemodynamically significant stenosis or atherosclerotic calcification. CT ABDOMEN AND PELVIS FINDINGS: Upper GI tract: Small hiatal hernia.. Liver: Hepatomegaly, craniocaudal length 22.2 cm. No focal lesion. Gallbladder: No intrahepatic ductal dilation. Common bile duct is nondilated. Status post cholecystectomy. Spleen: Normal size. Pancreas: Unremarkable. Adrenal glands: Unremarkable. Kidneys/ureters: No mass; No hydronephrosis. Included portion of the ureters are unremarkable. Veins: Lymph nodes: No adenopathy. Bowel: Stomach is unremarkable. No bowel dilation or significant wall thickening. Diffuse colonic diverticulosis without evidence of diverticulitis. No evidence of gastrointestinal bleed. Appendix is not visualized. Peritoneum: No free air or fluid. : Urinary bladder is unremarkable. No pelvic mass.. Bones: Degenerative changes of the lumbar spine. Moderate scoliosis. Soft tissue including the abdominal wall: Mild subcutaneous edema. . CT/CTA Abd/Pelvis W/WO Contrast IMPRESSION: 1. No evidence of acute gastrointestinal bleed. 2. No evidence of aortic dissection, thrombosis or aneurysm. 3. Colonic diverticulosis without diverticulitis. 4. Hepatomegaly without focal lesion. OVERALL FINAL ASSESSMENT: . LI-RADS is not meant to be used in patients <18 years or patients with cirrhosi s due to congenital hepatic fibrosis or due to vascular disorders, because these patients have a lower chance of developing HC C. Reading Location: [facility]
[2024-07-27 22:19] LABS: Color, Urine Yellow (Yellow); Glucose, Dipstick 1000 mg/dl (Normal); Ketone-Dipstick Negative (Negative); Leukocyte Esterase-Dipstick 500 /ul (Negative); Nitrite-Dipstick Negative (Negative); Occult Blood-Urine 150 /ul (Negative); Protein-Dipstick 15 mg/dl (Negative); Specific Gravity, Urine 1.015 (1.002-1.030); Urine Bilirubin Dipstick Negative (Negative); Urine Clarity Clear (Clear); Urine Urobilinogen Normal (Normal)
[2024-07-27 22:22] LABS: ALB/GLOB Ratio 1.2 RATIO (0.9-2.4); AST(SGOT) 11 U/L (<=31); Alanine Aminotransfer ALT/SGPT 15 U/L (<=34); Albumin, Serum 4.2 g/dL (3.4-4.8); Alkaline Phosphatase 115 U/L (35-104); Anion Gap 14 (5-15); BUN 24 mg/dL (4-19); BUN/Creat Ratio 25.3 RATIO (10-20); Calcium,Total 9.4 mg/dL (7.6-11.0); Carbon Dioxide 21.1 mmol/L (21.0-32.0); Chloride 104 mmol/L (98-108); Creatinine, Serum 0.93 mg/dL (0.70-1.20); EST Glomerular Filtration Rate 64 (>60); Estimated Creatinine Clearance 51.42 ml/min (50-250); Globulin 3.4 g/dL (2.2-4.2); Glucose 232 mg/dL (70-99); Lipase 21 U/L (13-75); Potassium 4.4 mmol/L (3.3-5.1); Protein, Total 7.6 g/dL (5.9-8.4); Sodium Level 139 mmol/L (133-145); Total Bilirubin 0.29 mg/dL (0.00-1.30)
[2024-07-27 22:27] LABS: Absolute Lymphocyte Count 4.22 X10^3/uL (0.83-4.51); Absolute Neutrophil Count 13.9 X10^3/uL (2.0-7.7); Basophil# 0.06 X10^3/uL; Basophil% 0.3 % (0-1); Eosinophil# 0.59 X10^3/uL; Eosinophils% 2.9 % (0-5); Hematocrit 36.5 % (37-47); Hemoglobin 11.7 g/dL (12.0-15.0); Lymphocyte # 4.22 X10^3/ul (0.83-4.51); Mean Corp Hgb Conc 32.1 g/dL (32-36); Mean Corpuscular Hgb 27.9 pg (27.0-32.0); Mean Corpuscular Volume 86.9 fL (81-99); Mean Platelet Vol. 12.1 fl (6.2-12.0); Monocyte# 1.16 X10^3/uL; Monocyte% 5.8 % (0-10); NRBC Flagged by Analyzer 0 % (0-5); Neutrophil % 69.2 % (47-70); Platelet Count 250 K/mm3 (150-450); RBC Distribution Width CV 15.2 % (11.6-14.6); RBC Distribution Width SD 48.2 fl (35.1-43.9); White Blood Count 20.1 K/mm3 (4.4-11.0)
[2024-07-27] MEDS: Morphine 2 MG/ML Syringe IV (22:31)
[2024-07-27] MEDS: 0.9% Normal Saline (1000mL) 1,000 ML 999 ML IV (22:31)
[2024-07-27] MEDS: Ondansetron 4 MG/2 ML Vial IV (22:31)
[2024-07-27 22:42] LABS: Red Blood Cells-Urine 5-10 SEEN /hpf (0-5); White Blood Cells 25-50 SEEN /hpf (0-5)
[2024-07-27 22:47] LABS: Bacteria 1+ /hpf (None Seen)
[2024-07-27 22:53] LABS: Partial Thromboplast Time 25.8 Seconds (24.1-36.2); Prothrombin Time (Protime)PT. 13.3 SECONDS (11.7-14.9)
[2024-07-27 23:00] VITALS: BP 104/79; PULSE 100; O2SAT 97
[2024-07-27 23:55] VITALS: BP 107/70; PULSE 89; O2SAT 95
[2024-07-28] VITALS (22 sets, daily range): BP systolic 94–145; BP diastolic 54–84; PULSE 79–114; RESP 16–18; TEMP 36.3–37.1; O2SAT 93–98; BMI 35.6; BMI 35.4
[2024-07-28] MEDS: Ceftriaxone 1 GM/50 ML BAG IV ×2 (00:27→23:02)
[2024-07-28 00:59] LABS: Procalcitonin 0.03 ng/mL (<=0.10)
[2024-07-28 01:17] LABS: Lactic Acid < 1.0 mmol/L (0.0-2.0)
--- NOTE | 2024-07-28 02:54 | EDS_ITS ---
HPI History of Present Illness Chief Complaint: GI Bleed Informant: patient and spouse/S.O. Narrative Narrative: Patient is a 74-year-old female with a past medical history of type 2 diabetes and COPD as well as diverticulosis. She states that this morning around 10 AM she felt like she had to urinate but when she went it was just a bunch of blood. She states the blood was from her rectum and was such a large amount that it went all the way up onto her shirt and back. She states since its onset around 10 she was going every hour until roughly 10:00 this evening. She states the bleeding only occurs when she has a bowel movement. She denies any syncopal event but states that she feels a little lightheaded. She states she is also had some pain in the lower abdomen and is concerned for an infection as she states the last time he had this she had diverticulitis. She denies any history of bleeding disorder or blood thinner use other than a baby aspirin. However because of the recurrent bloody bowel movements and pain and concern she may need antibiotics or blood transfusion she presents for evaluation [facility] Medical History (Updated 07/28/24 @ 03:[address] Michael Lopez, DO) Diabetes mellitus type 2 in obese Obesity COPD (chronic obstructive pulmonary disease) Perforation of sigmoid colon due to diverticulitis Home Medications ?Medication ?Instructions ?Recorded ?Last Taken ?Type glimepiride 4 mg tablet 4 mg PO BID diabetes 7 07/28/24 History lisinopril 10 mg tablet 10 mg PO DAILY blood pressur e 08/28/16 07/28/24 History oxycodone-acetaminophen 10 mg-325 1 tab PO BID PRN Chavo n 08/28/16 07/27/24 History mg tablet simvastatin 20 mg tablet 20 mg PO QHS cholesterol 12/0607/27/24 History sitagliptin phosphate 100 mg tablet 100 mg PO DAILY di abetes 08/28/16 07/28/24 History albuterol sulfate 90 mcg/actuation 1 - 2 puff inhalati on Q6H PRN PRN 09/03/16 07/27/24 History aerosol inhaler COPD pantoprazole 40 mg tablet,delayed 40 mg PO DAILY GERD 09/03/16 07/28/24 History release ferrous sulfate 325 mg (65 mg 325 mg PO DAILY suppleme nt 05/28/17 07/28/24 History iron) tablet aspirin 81 mg chewable tablet 81 mg PO DAILY heart hea lth 06/22/18 07/28/24 History empagliflozin 10 mg tablet 10 mg PO DAILY 02/04/2312/14 History (Jardiance) levothyroxine 112 mcg tablet 112 mcg PO DAILY 02/04/23 07/28/24 History ascorbic acid (vitamin C) 500 mg 500 mg PO BID 5 07/28/24 History tablet cholecalciferol (vitamin D3) 50 50 mcg PO Q2D 07/28/24 07/27/24 History mcg (2,000 unit) capsule furosemide 20 mg tablet 20 - 40 mg PO DAILY PRN swel ling 07/28/24 07/27/24 History naproxen 500 mg tablet 500 mg PO DAILY pain 5 07/28/24 History tizanidine 4 mg tablet 4 mg PO QHS 07/28/24 5 History Allergy/AdvReac Type Severity Reaction Status Date / Time atropine sulfate (From Allergy Rash Verified 07/27/24 20:31 ) famotidine (From Pepcid) Allergy Rash Verified 07/27/24 20:31 hyoscyamine sulfate (From Allergy Rash Verified 07/27/24 20:31 ) ibuprofen Allergy Rash Verified 07/27/24 20:31 phenobarbital (From ) Allergy Rash Verified 07/27/24 20:31 scopolamine hydrobromide Allergy Rash Verified 07/27/24 20:31 (From ) ketorolac tromethamine (From AdvReac Nausea Verified 07/27/24 20:31 Toradol) rofecoxib (From Vioxx) AdvReac Nausea Verified 07/27/24 20:31 tramadol AdvReac Nausea Verified 07/27/24 20:31 Family History Brother Diabetes Heart disease Hypertension CAD (coronary artery disease) Surgical History S/P appendectomy S/P hysterectomy S/P laparoscopic cholecystectomy s/p right lung lobectomy Social History Smoking Status: Never smoker alcohol intake: never ROS ROS ED Constitutional Constitutional ED: Denies chills or fever(s) Eyes Eyes: Denies change in vision ENT ENT ED: Denies sore throat Cardiovascular Cardiovascular: Reports racing heartbeat; Denies chest pain Respiratory/Chest Respiratory/Chest: Denies cough or dyspnea Gastrointestinal Gastrointestinal: Reports abdominal pain and other Details: Positive rectal bleeding ; Denies diarrhea, nausea or vomiting Genitourinary Genitourinary ED: Denies dysuria Musculoskeletal Musculoskeletal: Denies back pain Integumentary Denies rash Neurologic Neurologic: Reports other Details: Positive lightheadedness ; Denies headache(s) Hematologic/Lymphatic Hematologic/Lymphatic: Denies easy bleeding or easy bruising EXAM Physical Exam Const Vital Signs: 07/27/24 20:31 07/27/24 21:29 07/27/24 21:59 Temperature 97.8 F Temperature Source Temporal Pulse Rate 134 H 112 H 111 H Respiratory Rate 20 H Blood Pressure 168/89 H 127/83 H 127/83 H Blood Pressure Mean 115 97 97 Pulse Ox 97 99 98 Oxygen Delivery Method Room Air Room Air Room Air 07/27/24 23:00 07/27/24 23:55 07/28/24 01:00 Temperature Temperature Source Pulse Rate 100 89 83 Respiratory Rate 18 Blood Pressure 104/79 107/70 109/72 Blood Pressure Mean 87 82 84 Pulse Ox 97 95 98 Oxygen Delivery Method Room Air Room Air Room Air 07/28/24 02:00 07/28/24 02:30 07/28/24 02:31 Temperature 98.6 F 97.8 F Temperature Source Oral Pulse Rate 82 90 90 Respiratory Rate 16 16 16 Blood Pressure 114/73 114/73 114/73 Blood Pressure Mean 86 86 86 Pulse Ox 95 98 98 Oxygen Delivery Method Room Air Room Air 07/28/24 03:00 Temperature Temperature Source Pulse Rate 79 Respiratory Rate 16 Blood Pressure 100/67 Blood Pressure Mean 78 Pulse Ox 97 Oxygen Delivery Method Room Air Positive well nourished, well developed and obese General Appearance ED: well developed; Negative for pallor Nutritional Appearance: obese HEENT HEENT Narrative: Normocephalic atraumatic Eyes PERRL and EOMs intact bilaterally General Eye ED: Negative for pale conjunctiva or scleral icterus Neck supple Resp normal respiratory effort and clear to auscultation bilaterally Resp Narrative: Breath sounds are diminished throughout but overall clear to auscultation without signs of respiratory distress Cardio regular rhythm Rate: tachycardic and other Other Details: Tachycardic rate with regular rhythm Radial and carotid pulses are equal and symmetric GI non-distended and no masses GI Narrative: Abdomen is soft and nondistended with normal active bowel sounds. There is pain on palpation in the suprapubic to left lower quadrant region of the abdomen without voluntary guarding or rigidity. No pulsatile mass or fluid wave Auscultation: normoactive bowel sounds Palpation: soft Narrative: No external hemorrhoid or anal fissure noted. Rectal tone is normal. Stool is maroon in color and Hemoccult positive. Back/Spine no CVA tenderness Extremity normal to inspection Neuro oriented x3, CN's II-XII intact bilaterally and no sensory deficits noted Sensorium / Orientation: alert Motor Exam: strength 5/5 throughout Psych mental status grossly normal Skin no rashes or lesions noted Skin Narrative: Capillary refill is less than 3 seconds General Skin Exam: Negative for jaundice or pallor MDM MDM MDM Narrative Medical decision making narrative: Patient arrived to the ER tachycardic but otherwise awake and alert and in no acute distress. Her history of recurrent blood per rectum is concerning for diverticular bleed. However as she has pain there is also concern for diverticulitis versus UTI. Patient may also have acute blood loss anemia secondary to her recurrent bloody bowel movements and/or thrombocytopenia. Secondary to his basic labs were obtained with a CTA of the abdomen and pelvis. White count is elevated at 20.1 concerning for infection and the neutrophil count is elevated at 13.9 indicating infection as well. The CT however shows diverticular disease without diverticulitis or active bleed. The patient's urine sample however does show changes consistent with infection. Her lactic acid is normal as well as her procalcitonin and as she is afebrile and normotensive the patient does not trigger sepsis protocol. However because of the leukocytosis blood cultures and urine culture will be obtained and she will be started on Rocephin. After 1 L of fluid the patient's heart rate normalized. She had no further bouts of bloody stool while in the ER. The case was discussed with gastroenterology Dr. Coles. He believes the patient has had her symptoms secondary to diverticular bleeding which has since stopped. However there is high likelihood that the bleeding will recur and therefore recommends admission for continued observation and potential colonoscopy. Therefore the case was discussed with hospitalist who [facility] History & Record Review Discussion w/independent historian: Patient and Significant other Lab Data Attestation: I reviewed the patient's lab results. Labs: Laboratory Results - last 24 hr 07/27/24 07/27/24 07/27/24 21:00 21:55 22:40 WBC 20.1 H RBC 4.20 Hgb 11.7 L Hct 36.5 L MCV 86.9 MCH 27.9 MCHC 32.1 RDW Std Deviation 48.2 H RDW Coeff of Wen 15.2 H Plt Count 250 MPV 12.1 H Immature Gran % (Auto) 0.800 Neut % (Auto) 69.2 Lymph % (Auto) 21.0 [place] % (Auto) 5.8 Eos % (Auto) 2.9 Baso % (Auto) 0.3 Absolute Neuts (auto) 13.9 H Absolute Lymphs (auto) 4.22 Nucleated RBC % 0 PT 13.3 INR 1.0 APTT 25.8 Sodium 139 Potassium 4.4 Chloride 104 Carbon Dioxide 21.1 Anion Gap 14 BUN 24 H Creatinine 0.93 Estim Creat Clear Calc 51.42 Est GFR (MDRD) Non-Af 64 BUN/Creatinine Ratio 25.3 H Glucose 232 H Lactic Acid Calcium 9.4 Total Bilirubin 0.29 AST 11 ALT 15 Alkaline Phosphatase 115 H Total Protein 7.6 Albumin 4.2 Globulin 3.4 Albumin/Globulin Ratio 1.2 Lipase 21 Procalcitonin Urine Color Yellow Urine Clarity Clear Urine pH 5.0 Ur Specific [place] 1.015 Urine Protein 15 H Urine Glucose (UA) 1000 H Urine Ketones Negative Urine Occult Blood 150 H Urine Nitrite Negative Urine Bilirubin Negative Urine Urobilinogen Normal Ur Leukocyte Esterase 500 H Urine RBC 5-10 SEEN Urine WBC 25-50 SEEN Ur Squamous Epith Cells 0 SEEN Urine Bacteria 1+ Urine Mucus 0 SEEN Blood Type Antibody Screen 07/27/24 07/28/24 07/28/24 22:45 00:10 00:15 WBC RBC Hgb Hct MCV MCH MCHC RDW Std Deviation RDW Coeff of Wen Plt Count MPV Immature Gran % (Auto) Neut % (Auto) Lymph % (Auto) [place] % (Auto) Eos % (Auto) Baso % (Auto) Absolute Neuts (auto) Absolute Lymphs (auto) Nucleated RBC % PT INR APTT Sodium Potassium Chloride Carbon Dioxide Anion Gap BUN Creatinine Estim Creat Clear Calc Est GFR (MDRD) Non-Af BUN/Creatinine Ratio Glucose Lactic Acid < 1.0 Calcium Total Bilirubin AST ALT Alkaline Phosphatase Total Protein Albumin Globulin Albumin/Globulin Ratio Lipase Procalcitonin 0.03 Urine Color Urine Clarity Urine pH Ur Specific [place] Urine Protein Urine Glucose (UA) Urine Ketones Urine Occult Blood Urine Nitrite Urine Bilirubin Urine Urobilinogen Ur Leukocyte Esterase Urine RBC Urine WBC Ur Squamous Epith Cells Urine Bacteria Urine Mucus Blood Type O POSITIVE Antibody Screen NEGATIVE Radiography Diagnostic Testing: Clinical Impression(s) from Imaging Studies Abdomen/Pelvis CTA 07/27/24 22:15 IMPRESSION: 1. No evidence of acute gastrointestinal bleed. 2. No evidence of aortic dissection, thrombosis or aneurysm. 3. Colonic diverticulosis without diverticulitis. 4. Hepatomegaly without focal lesion. OVERALL FINAL ASSESSMENT: . LI-RADS is not meant to be used in patients <18 years or patients with cirrhosis due to congenital hepatic fibrosis or due to vascular disorders, because these patients have a lower chance of developing HCC. Reading Location: [facility] Management Discussion w/another healthcare provider: Hospitalist and Research Archaeologist Discharge Plan Dx/Rx/DC Orders Clinical Impression: GI (gastrointestinal bleed), Diverticulosis, UTI (urinary tract infection), COPD (chronic obstructive pulmonary disease), Diabetes mellitus type 2 in obese Disposition Disposition: Acute Care [facility]
[2024-07-28] MEDS: Pantoprazole Sodium 40 MG in 0.9% Normal Saline (100mL MB+) 100 ML 330 MG IV ×3 (03:07→21:15)
--- NOTE | 2024-07-28 03:39 | PCM.HP.STD ---
[facility] - General General Date of Admission: 07/28/24 Date of Service: 07/28/24 Chief Complaint: LGIB with Maroon Stools. HPI Narrative FINESSE STRICKLAND, is a 74 F with a past medical history of essential hypertension; on lisinopril and furosemide daily as needed, hyperlipidemia; on simvastatin, hypothyroidism; on levothyroxine, obesity; BMI of 35 this admission, DM-2; unknown control on sitagliptin, empagliflozin and glimepiride twice daily, history of tobacco abuse; with subsequent COPD on as needed albuterol, history of Right lung lobectomy, EVONNE; on ferrous sulfate, history of muscle spasms; on nightly tizanidine, history of perforation of the sigmoid colon due to diverticulitis, history of appendectomy, history of laparoscopic cholecystectomy, history of hysterectomy, GERD; on pantoprazole and OA; on naproxen daily and as needed oxycodone-acetaminophen twice daily as needed who presents to [facility] ER complaining of lower GI bleed with maroon stools. Ms. Strickland reports her symptoms began on the morning of July 27, 2024 at approximately 10 AM when she felt like she had to urinate but when she went to the bathroom it was just a bunch of blood. She states the blood was from her rectum and was such a large amount of blood that it went up onto her shirt and back. She then claims she had a bowel movement every hour until 10 PM when she finally decided to come in for further evaluation and treatment. She admits to lower abdominal pain and lightheadedness with racing heartbeat but she denies syncope or presyncope. She denies being on anticoagulation but she does admit to taking baby aspirin and naproxen daily. She states her symptoms are similar to her previous bouts of diverticulitis, minus the bleeding. She denies associated fever, chills, changes in vision, sore throat, runny nose, ear pain, shortness of breath, cough, nausea, vomiting, diarrhea, dysuria, headache or rash. In the ER she underwent CTA of the abdomen and pelvis with IV contrast that revealed no evidence of acute GI bleed, no evidence of aortic dissection, thrombus or aneurysm, colonic diverticulosis without diverticulitis and hepatomegaly without focal lesion and she was then diagnosed with LGIB; with maroon stool suspected to be of diverticular origin complicated by UA that was positive for evidence of Acute Cystitis; with microscopic hematuria with severe Leukocytosis of 20.1K present on admission and additional laboratory evidence of mild Dehydration evidenced by elevated BUN/creatinine ratio of 25.3 present on admission and she was then admitted to the PCU for ongoing care for state that is expected to extend beyond 2 midnights. [facility] Medical History Diabetes mellitus type 2 in obese Obesity COPD (chronic obstructive pulmonary disease) Perforation of sigmoid colon due to diverticulitis Home Medications ?Medication ?Instructions ?Recorded ?Last Taken ?Type glimepiride 4 mg tablet 4 mg PO BID diabetes 08/28/16 07/28/24 History lisinopril 10 mg tablet 10 mg PO DAILY blood pressure 08/28/16 07/28/24 History oxycodone-acetaminophen 10 mg-325 1 tab PO BID PRN Pain 08/28/16 07/27/24 History mg tablet simvastatin 20 mg tablet 20 mg PO QHS cholesterol 08/28/16 07/27/24 History sitagliptin phosphate 100 mg tablet 100 mg PO DAILY diabetes 08/28/16 07/28/24 History albuterol sulfate 90 mcg/actuation 1 - 2 puff inhalation Q6H PRN PRN 09/03/16 07/27/24 History aerosol inhaler COPD pantoprazole 40 mg tablet,delayed 40 mg PO DAILY GERD 09/03/16 07/28/24 History release ferrous sulfate 325 mg (65 mg 325 mg PO DAILY supplement 05/28/17 07/28/24 History iron) tablet aspirin 81 mg chewable tablet 81 mg PO DAILY heart health 06/22/18 07/28/24 History empagliflozin 10 mg tablet 10 mg PO DAILY 02/04/23 07/28/24 History (Jardiance) levothyroxine 112 mcg tablet 112 mcg PO DAILY 02/04/23 07/28/24 History ascorbic acid (vitamin C) 500 mg 500 mg PO BID 07/28/24 07/28/24 History tablet cholecalciferol (vitamin D3) 50 50 mcg PO Q2D 07/28/24 07/27/24 History mcg (2,000 unit) capsule furosemide 20 mg tablet 20 - 40 mg PO DAILY PRN swelling 07/28/24 07/27/24 History naproxen 500 mg tablet 500 mg PO DAILY pain 07/28/24 07/28/24 History tizanidine 4 mg tablet 4 mg PO QHS 07/28/24 07/27/24 History Allergy/AdvReac Type Severity Reaction Status Date / Time atropine sulfate (From Allergy Rash Verified 07/27/24 20:31 ) famotidine (From Pepcid) Allergy Rash Verified 07/27/24 20:31 hyoscyamine sulfate (From Allergy Rash Verified 07/27/24 20:31 ) ibuprofen Allergy Rash Verified 07/27/24 20:31 phenobarbital (From ) Allergy Rash Verified 07/27/24 20:31 scopolamine hydrobromide Allergy Rash Verified 07/27/24 20:31 (From ) ketorolac tromethamine (From AdvReac Nausea Verified 07/27/24 20:31 Toradol) rofecoxib (From Vioxx) AdvReac Nausea Verified 07/27/24 20:31 tramadol AdvReac Nausea Verified 07/27/24 20:31 Family History Brother Diabetes Heart disease Hypertension CAD (coronary artery disease) Surgical History S/P appendectomy S/P hysterectomy S/P laparoscopic cholecystectomy s/p right lung lobectomy Social History Smoking Status: Never smoker alcohol intake: never ROS ROS Narrative Review of Systems: Constitutional: Patient admits to lightheadedness but she denies fever or chills. Eyes: Patient denies change in vision or discharge from eyes. ENT: Patient denies runny nose, sore throat or ear pain. Resp: Patient denies shortness of breath or cough. CV: Patient admits to racing heartbeat but she denies chest pain or palpitations. GI: Patient admits to lower abdominal pain with LGIB with maroon stools as per HPI. She denies nausea, vomiting or diarrhea. : Patient denies dysuria. MSK: Patient denies arthralgias or myalgias. Skin: Patient denies rash, abscess, wounds or jaundice. Psych: Patient denies symptoms uncontrolled depression or anxiety. Neuro: Patient denies headache, paresthesias or focal neurologic deficits. Hematology: Patient admits to [facility] with her stools with allegedly 10 bloody bowel movements throughout the day as per HPI. Endocrinology: Patient denies polyuria, polydipsia, polyphagia or heat/cold intolerance. 14 point ROS otherwise negative except for positives noted above in HPI. Vital Signs Vital Signs Vital Signs: 07/27/24 20:31 07/27/24 21:29 07/27/24 21:59 Temperature 97.8 F Temperature Source Temporal Pulse Rate 134 H 112 H 111 H Respiratory Rate 20 H Blood Pressure 168/89 H 127/83 H 127/83 H Blood Pressure Mean 115 97 97 Pulse Ox 97 99 98 Oxygen Delivery Method Room Air Room Air Room Air 07/27/24 23:00 07/27/24 23:55 07/28/24 01:00 Temperature Temperature Source Pulse Rate 100 89 83 Respiratory Rate 18 Blood Pressure 104/79 107/70 109/72 Blood Pressure Mean 87 82 84 Pulse Ox 97 95 98 Oxygen Delivery Method Room Air Room Air Room Air 07/28/24 02:00 07/28/24 02:30 07/28/24 02:31 Temperature 98.6 F 97.8 F Temperature Source Oral Pulse Rate 82 90 90 Respiratory Rate 16 16 16 Blood Pressure 114/73 114/73 114/73 Blood Pressure Mean 86 86 86 Pulse Ox 95 98 98 Oxygen Delivery Method Room Air Room Air 07/28/24 03:00 07/28/24 03:31 Temperature 97.8 F Temperature Source Oral Pulse Rate 79 80 Respiratory Rate 16 16 Blood Pressure 100/67 100/47 L Blood Pressure Mean 78 64 Pulse Ox 97 93 Oxygen Delivery Method Room Air Room Air Weight Weight: 185 lb 6.4 oz Body Mass Index (BMI) 35.0 Physical Exam Const alert, oriented x3 and no apparent distress Constitutional Narrative: Obese and nontoxic in appearance. General Appearance: cooperative HEENT normocephalic, head/scalp atraumatic and hearing grossly normal bilaterally HEENT Narrative: Mucous membranes dry. Eyes PERRL, EOMs intact bilaterally and conjunctivae normal Neck no lymphadenopathy, supple and no JVD Resp normal respiratory effort, no retractions, no use of accessory muscles and clear to auscultation bilaterally Cardio regular rate and regular rhythm GI normal to inspection, nondistended, normoactive bowel sounds GI Narrative: Patient is tender to palpation in the suprapubic region and left lower quadrant of the abdomen without voluntary guarding or rigidity. Abdomen is otherwise soft and nondistended with normal active bowel sounds. Extremity normal to inspection, full ROM and no clubbing, cyanosis or edema Skin Skin Narrative: Patient has no evidence of rash, abscess, wounds or jaundice. Neuro oriented x3, CN's II-XII intact bilaterally, moves all extremities and no focal motor deficits Sensorium / Orientation: awake, alert, oriented to person, oriented to place and oriented to time Speech: speech normal Psych affect normal Results Medical Records Data Attestation: I reviewed the patient's medical records Lab / Micro Data Attestation: I reviewed the patient's lab results. 07/28/24 05:26 07/28/24 05:26 Labs: Laboratory Results - last 24 hr 07/27/24 21:00: WBC 20.1 H, RBC 4.20, Hgb 11.7 L, Hct 36.5 L, MCV 86.9, MCH 27.9, MCHC 32.1, RDW Std Deviation 48.2 H, RDW Coeff of Wen 15.2 H, Plt Count 250, MPV 12.1 H, Immature Gran % (Auto) 0.800, Neut % (Auto) 69.2, Lymph % (Auto) 21.0, [place] % (Auto) 5.8, Eos % (Auto) 2.9, Baso % (Auto) 0.3, Absolute Neuts (auto) 13.9 H, Absolute Lymphs (auto) 4.22, Nucleated RBC % 0, Sodium 139, Potassium 4.4, Chloride 104, Carbon Dioxide 21.1, Anion Gap 14, BUN 24 H, Creatinine 0.93, Estim Creat Clear Calc 51.42, Est GFR (MDRD) Non-Af 64, BUN/Creatinine Ratio 25.3 H, Glucose 232 H, Calcium 9.4, Total Bilirubin 0.29, AST 11, ALT 15, Alkaline Phosphatase 115 H, Total Protein 7.6, Albumin 4.2, Globulin 3.4, Albumin/Globulin Ratio 1.2, Lipase 21 07/27/24 21:55: Urine Color Yellow, Urine Clarity Clear, Urine pH 5.0, Ur Specific [place] 1.015, Urine Protein 15 H, Urine Glucose (UA) 1000 H, Urine Ketones Negative, Urine Occult Blood 150 H, Urine Nitrite Negative, Urine Bilirubin Negative, Urine Urobilinogen Normal, Ur Leukocyte Esterase 500 H, Urine RBC 5-10 SEEN, Urine WBC 25-50 SEEN, Ur Squamous Epith Cells 0 SEEN, Urine Bacteria 1+, Urine Mucus 0 SEEN 07/27/24 22:40: PT 13.3, INR 1.0, APTT 25.8 07/27/24 22:45: Blood Type O POSITIVE, Antibody Screen NEGATIVE 07/28/24 00:10: Lactic Acid < 1.0 07/28/24 00:15: Procalcitonin 0.03 Micro: Microbiology 07/27/24 01:41 Stool Stool Occult Blood (HOLLI) - Final Occult Blood Positive Imaging Radiology Impression Abdomen/Pelvis CTA 07/27/24 22:15 IMPRESSION: 1. No evidence of acute gastrointestinal bleed. 2. No evidence of aortic dissection, thrombosis or aneurysm. 3. Colonic diverticulosis without diverticulitis. 4. Hepatomegaly without focal lesion. OVERALL FINAL ASSESSMENT: . LI-RADS is not meant to be used in patients <18 years or patients with cirrhosis due to congenital hepatic fibrosis or due to vascular disorders, because these patients have a lower chance of developing HCC. Reading Location: [facility] Assessment & Plan Assessment/Plan (1) Lower GI bleed: (2) Diverticulosis: (3) Acute cystitis with hematuria: (4) Dehydration: (5) Obesity (BMI 30-39.9): (6) Diabetes mellitus type 2 in obese: PLAN: Plan 1. LGIB; with maroon stool suspected to be of diverticular origin in the setting of a previously known history of diverticulosis and perforation of the sigmoid colon due to diverticulitis - Admit to PCU. Type and screen blood and transfuse for hemoglobin less than 7 g/dL. Continue IV pantoprazole began in the ER. Give IV ondansetron as needed for nausea and vomiting. Give promethazine IM as needed for breakthrough nausea. Give acetaminophen SC as needed for [id number] (level 1-5/10) pain or fever. Give morphine IV as needed for severe (level 6-10/10) pain. This patient made it clear to me that she will not take blood under any circumstances due to her nondenominational beliefs - but she said she will take plasma. Finally, we will consult gastroenterology to see this patient on rounds in the a.m. further recommendations regarding colonoscopy this admission without appreciated advance. 2. Acute Cystitis; with microscopic hematuria with severe Leukocytosis of 20.1K present on admission complicating #1 - Maintain on empiric IV ceftriaxone begun in the ER and await culture and sensitivity data. 3. Dehydration evidenced by elevated BUN/creatinine ratio of 25.3 present on admission compounding #1 & #2 - We we will volume resuscitate and then recheck renal indices daily to follow trend. 4. Obesity; BMI of 35 this admission adding to the burden of disease outlined from #1 - #3 - Weight loss will be recommended. Check TSH. This complicates her case and may hamper recovery. 5. DM-2; unknown control on sitagliptin, empagliflozin and glimepiride twice daily adding to the medical complexity of #1 - #4 - Keep NPO for now. Hold oral hypoglycemic agents till further notice. Check FSBS q. 6 hours plus lowest-intensity SSI. Check HgbA1c to objectively assess quality of diabetic control. 6. Essential hypertension; on lisinopril and furosemide daily as needed - Hold oral antihypertensives. Give IV hydralazine as needed for systolic blood pressure greater than 160 mmHg. 7. Hyperlipidemia; on simvastatin - Hold statin and check lipid profile. 8. Hypothyroidism; on levothyroxine - Restart oral levothyroxine after colonoscopy. Check TSH. 9. History of tobacco abuse; with subsequent COPD on as needed albuterol - Stable with no evidence of acute flare at this time. Continue as needed nebulizers. 10. History of Right lung lobectomy - Noted. 11. EVONNE; on ferrous sulfate - Stable with hemoglobin of 11.7 g/dL and MCV of 86.9 fL present on admission. 12. History of muscle spasms; on nightly tizanidine - Stable. Hold tizanidine until patient cleared for oral intake. 13. History of appendectomy - Noted. 14. History of laparoscopic cholecystectomy - Noted. 15. History of hysterectomy - Noted for the sake of completeness. 16. GERD; on pantoprazole - Patient started on PPI IV for #1. 17. OA; on naproxen daily and as needed oxycodone-acetaminophen twice daily as needed - Stable. We will avoid oral agents, particularly NSAIDs in light of #1. Will follow pain regimen and scale as outlined in #1. 18. DVT prophylaxis - SCD's only in light of recent lower GI bleed outlined in #1. Total time: Approximately (but not less than) 75 minutes. Charges/Coding Visit Charges Inpatient E&M: 14456 Init Hosp L3
[2024-07-28] MEDS: 0.9% Normal Saline (1000mL) 1,000 ML 100 ML IV ×2 (04:53→16:29)
[2024-07-28] MEDS: 0.9% Saline Lock 10 ML Syringe IV ×2 (04:53→16:30)
[2024-07-28] MEDS: Pantoprazole Sodium 80 MG in 0.9% Normal Saline (100mL Bag) 80 ML 10 MG CONT INF (04:53)
[2024-07-28 05:52] LABS: Absolute Lymphocyte Count 3.55 X10^3/uL (0.83-4.51); Absolute Neutrophil Count 7.4 X10^3/uL (2.0-7.7); Basophil# 0.04 X10^3/uL; Basophil% 0.3 % (0-1); Eosinophil# 0.94 X10^3/uL; Eosinophils% 7.3 % (0-5); Hemoglobin 9.9 g/dL (12.0-15.0); Lymphocyte # 3.55 X10^3/ul (0.83-4.51); Lymphocyte % 27.5 % (19-41); Mean Corp Hgb Conc 31.9 g/dL (32-36); Mean Corpuscular Hgb 27.9 pg (27.0-32.0); Mean Corpuscular Volume 87.3 fL (81-99); Mean Platelet Vol. 11.5 fl (6.2-12.0); NRBC Flagged by Analyzer 0 % (0-5); Neutrophil # 7.43 X10^3/uL (2.7-7.7); Neutrophil % 57.4 % (47-70); Platelet Count 203 K/mm3 (150-450); RBC Distribution Width CV 15.2 % (11.6-14.6); RBC Distribution Width SD 48.3 fl (35.1-43.9); Red Blood Count 3.55 M/mm3 (4.2-5.4); White Blood Count 12.9 K/mm3 (4.4-11.0)
[2024-07-28 06:24] LABS: ALB/GLOB Ratio 1.3 RATIO (0.9-2.4); AST(SGOT) 8 U/L (<=31); Alanine Aminotransfer ALT/SGPT 12 U/L (<=34); Albumin, Serum 3.6 g/dL (3.4-4.8); Alkaline Phosphatase 90 U/L (35-104); Anion Gap 9 (5-15); BUN 18 mg/dL (4-19); BUN/Creat Ratio 25.1 RATIO (10-20); Calcium,Total 8.7 mg/dL (7.6-11.0); Carbon Dioxide 22.9 mmol/L (21.0-32.0); Chloride 109 mmol/L (98-108); Creatinine, Serum 0.71 mg/dL (0.70-1.20); EST Glomerular Filtration Rate 89 (>60); Estimated Creatinine Clearance 60.16 ml/min (50-250); Globulin 2.7 g/dL (2.2-4.2); Glucose 126 mg/dL (70-99); Magnesium 2.2 mg/dL (1.5-2.2); Potassium 3.9 mmol/L (3.3-5.1); Protein, Total 6.3 g/dL (5.9-8.4); Sodium Level 140 mmol/L (133-145); Total Bilirubin 0.24 mg/dL (0.00-1.30)
[2024-07-28 06:26] LABS: Bedside Glucose 131 mg/dL (74-106)
[2024-07-28 07:09] LABS: Phosphorus 3.3 mg/dL (2.7-4.5)
[2024-07-28 08:51] LABS: Hemoglobin A1c 7.8 % (<=5.6)
--- NOTE | 2024-07-28 09:00 | PCM.PN.HOSP ---
Reason for Visit Reason for Visit: Diagnoses Type 2 diabetes mellitus with other specified complication (07/28/24) Obesity, unspecified (07/28/24) Dehydration (07/28/24) Diverticulosis of intestine, part unspecified, without perforation or abscess without bleeding (07/28/24) Gastrointestinal hemorrhage, unspecified (07/28/24) Acute cystitis with hematuria (07/28/24) Objective Data Objective Data Vital Signs: Vital Signs Temp Pulse Resp BP Pulse Ox O2 Del Method 97.3 F L 80 18 107/54 L 96 Room Air 07/28/24 04:51 07/28/24 04:51 07/28/24 04:51 07/28/24 04:51 07/28/24 07:18 07/28/24 07:18 Oxygen Delivery Method Room Air Weight: 187 lb 9.814 oz Body Mass Index (BMI) 35.4 Intake & Output: Intake and Output for Last 24 Hours 07/26/24 07/27/24 07/28/24 23:59 23:59 23:59 Intake Total 1000 / 1000 160 / 160 Balance 1000 / 1000 160 / 160 Lab / Micro Data 07/28/24 05:26 07/28/24 05:26 Labs: Laboratory Results - last 24 hr 07/27/24 21:00: WBC 20.1 H, RBC 4.20, Hgb 11.7 L, Hct 36.5 L, MCV 86.9, MCH 27.9, MCHC 32.1, RDW Std Deviation 48.2 H, RDW Coeff of Wen 15.2 H, Plt Count 250, MPV 12.1 H, Immature Gran % (Auto) 0.800, Neut % (Auto) 69.2, Lymph % (Auto) 21.0, [place] % (Auto) 5.8, Eos % (Auto) 2.9, Baso % (Auto) 0.3, Absolute Neuts (auto) 13.9 H, Absolute Lymphs (auto) 4.22, Nucleated RBC % 0, Sodium 139, Potassium 4.4, Chloride 104, Carbon Dioxide 21.1, Anion Gap 14, BUN 24 H, Creatinine 0.93, Estim Creat Clear Calc 51.42, Est GFR (MDRD) Non-Af 64, BUN/Creatinine Ratio 25.3 H, Glucose 232 H, Calcium 9.4, Total Bilirubin 0.29, AST 11, ALT 15, Alkaline Phosphatase 115 H, Total Protein 7.6, Albumin 4.2, Globulin 3.4, Albumin/Globulin Ratio 1.2, Lipase 21 07/27/24 21:55: Urine Color Yellow, Urine Clarity Clear, Urine pH 5.0, Ur Specific [place] 1.015, Urine Protein 15 H, Urine Glucose (UA) 1000 H, Urine Ketones Negative, Urine Occult Blood 150 H, Urine Nitrite Negative, Urine Bilirubin Negative, Urine Urobilinogen Normal, Ur Leukocyte Esterase 500 H, Urine RBC 5-10 SEEN, Urine WBC 25-50 SEEN, Ur Squamous Epith Cells 0 SEEN, Urine Bacteria 1+, Urine Mucus 0 SEEN 07/27/24 22:40: PT 13.3, INR 1.0, APTT 25.8 07/27/24 22:45: Blood Type O POSITIVE, Antibody Screen NEGATIVE 07/28/24 00:10: Lactic Acid < 1.0 07/28/24 00:15: Procalcitonin 0.03 07/28/24 05:26: WBC 12.9 H, RBC 3.55 L, Hgb 9.9 L, Hct 31.0 L, MCV 87.3, MCH 27.9, MCHC 31.9 L, RDW Std Deviation 48.3 H, RDW Coeff of Wen 15.2 H, Plt Count 203, MPV 11.5, Immature Gran % (Auto) 0.500, Neut % (Auto) 57.4, Lymph % (Auto) 27.5, [place] % (Auto) 7.0, Eos % (Auto) 7.3 H, Baso % (Auto) 0.3, Absolute Neuts (auto) 7.4, Absolute Lymphs (auto) 3.55, Nucleated RBC % 0, Sodium 140, Potassium 3.9, Chloride 109 H, Carbon Dioxide 22.9, Anion Gap 9, BUN 18, Creatinine 0.71, Estim Creat Clear Calc 60.16, Est GFR (MDRD) Non-Af 89, BUN/Creatinine Ratio 25.1 H, Glucose 126 H, Hemoglobin A1c 7.8 H, Calcium 8.7, Phosphorus 3.3, Magnesium 2.2, Total Bilirubin 0.24, AST 8, ALT 12, Alkaline Phosphatase 90, Total Protein 6.3, Albumin 3.6, Globulin 2.7, Albumin/Globulin Ratio 1.3, TSH 1.550 07/28/24 06:00: POC Glucose 131 H Micro: Microbiology 07/27/24 01:41 Stool Stool Occult Blood (HOLLI) - Final Occult Blood Positive Radiography Diagnostic Testing: Radiology Impression Abdomen/Pelvis CTA 07/27/24 22:15 IMPRESSION: 1. No evidence of acute gastrointestinal bleed. 2. No evidence of aortic dissection, thrombosis or aneurysm. 3. Colonic diverticulosis without diverticulitis. 4. Hepatomegaly without focal lesion. OVERALL FINAL ASSESSMENT: . LI-RADS is not meant to be used in patients <18 years or patients with cirrhosis due to congenital hepatic fibrosis or due to vascular disorders, because these patients have a lower chance of developing HCC. Reading Location: [facility] Physical Exam Narrative Seen and examined Patient complained of dark rectal bleed separate from the stool with clots yesterday. No abdominal discomfort but has chronic left hip pain. 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 Physical exam General: Alert, Oriented x3, Cooperative HEENT: Atraumatic, PERRLA, EOMI, Normocephalic. Oral: No Gingival or Mucosal Lesions/ Ulcerations Neck: Supple, No JVD, Negative Carotid Bruits Chest wall/Lungs: Air entry diminished in right lung base . No crepitation/rhonchi Cardiovascular: Regular rate and rhythm, Normal S1,S2, No M/G/R Abdomen: Bowel Sounds Present, Soft, Non Tender, Non-Distended : No dysuria. No renal angle tenderness. No suprapubic tenderness. Extremities: No edema, Capillary Refill Less than 3 Seconds Skin: No rashes, No breakdown Musculoskeletal: Left hip greater trochanter is tender on deep palpation. No Tenderness to Palpation of other joints or Extremities. ROM of the restricted. Neurological: Cranial nerves II-XII grossly intact, DTR 2+/4. No acute focal neurological deficit. Psych/Mental Status: Normal Affect, Appropriate. Assessment & Plan Assessment/Plan (1) Lower GI bleed: (2) Diverticulosis: (3) Acute cystitis with hematuria: (4) Dehydration: (5) Obesity (BMI 30-39.9): (6) Diabetes mellitus type 2 in obese: PLAN: Plan 74-year-old female admitted with blood in the stool, large amount since 11 AM on day of admission also complained of headache nausea, Lightheadedness/dizziness. History of diverticulitis. Complain of lower abdominal pain 1. Acute lower GI bleed with acute blood loss anemia: Patient is being admitted to PCU. GI consulted. Patient admitted with hemoglobin 11.7 decreased to 9.9. No indication of PRBC transfusion CT abdomen/pelvis shows no evidence of acute GI bleed, aortic dissection thrombosis or aneurysm. Colonic diverticulosis without diverticulitis. Hepatomegaly 2. Acute Cystitis; with microscopic hematuria with severe Leukocytosis of 20.1K present on admission: Patient denies burning micturition, increased frequency or urgency. UA WBC 25-50 cells, RBC 5-10 nitrite negative. Urine blood culture pending. Empirically on IV ceftriaxone 3. Dehydration evidenced by elevated BUN/creatinine ratio of 25.3 present on admission: Volume resuscitation 4. Obesity; BMI of 35 KG per square meter weight loss. 5. DM-2; unknown control on sitagliptin, empagliflozin and glimepiride twice daily. A1c 7.8% 6. Essential hypertension; on lisinopril and furosemide daily as needed - Hold oral antihypertensives. Give IV hydralazine as needed for systolic blood pressure greater than 160 mmHg. 7. Hyperlipidemia; on simvastatin - Hold statin 8. Hypothyroidism; on levothyroxine - Restart oral levothyroxine after colonoscopy. TSH normal. 9. History of tobacco abuse; with subsequent COPD on as needed albuterol -on as needed albuterol nebulization. No acute exacerbation 11. EVONNE; on ferrous sulfate - Stable with hemoglobin of 11.7 g/dL and MCV of 86.9 fL present on admission. 16. GERD; on pantoprazole - Patient started on PPI IV for #1. 17. OA; on naproxen daily and as needed oxycodone-acetaminophen twice daily as needed - Stable. We will avoid oral agents, particularly NSAIDs in light of #1. Will follow pain regimen and scale as outlined in #1. 18. DVT prophylaxis - SCD's only in light of recent lower GI bleed outlined in #1. Microbiology Past 72 Hours 07/27/24 01:41 Stool Stool Occult Blood (HOLLI) - Final Occult Blood Positive Laboratory Results 07/27/24 21:00: WBC 20.1 H, RBC 4.20, Hgb 11.7 L, Hct 36.5 L, MCV 86.9, MCH 27.9, MCHC 32.1, RDW Std Deviation 48.2 H, RDW Coeff of Wen 15.2 H, Plt Count 250, MPV 12.1 H, Immature Gran % (Auto) 0.800, Neut % (Auto) 69.2, Lymph % (Auto) 21.0, [place] % (Auto) 5.8, Eos % (Auto) 2.9, Baso % (Auto) 0.3, Absolute Neuts (auto) 13.9 H, Absolute Lymphs (auto) 4.22, Nucleated RBC % 0, Sodium 139, Potassium 4.4, Chloride 104, Carbon Dioxide 21.1, Anion Gap 14, BUN 24 H, Creatinine 0.93, Estim Creat Clear Calc 51.42, Est GFR (MDRD) Non-Af 64, BUN/Creatinine Ratio 25.3 H, Glucose 232 H, Calcium 9.4, Total Bilirubin 0.29, AST 11, ALT 15, Alkaline Phosphatase 115 H, Total Protein 7.6, Albumin 4.2, Globulin 3.4, Albumin/Globulin Ratio 1.2, Lipase 21 07/27/24 21:55: Urine Color Yellow, Urine Clarity Clear, Urine pH 5.0, Ur Specific [place] 1.015, Urine Protein 15 H, Urine Glucose (UA) 1000 H, Urine Ketones Negative, Urine Occult Blood 150 H, Urine Nitrite Negative, Urine Bilirubin Negative, Urine Urobilinogen Normal, Ur Leukocyte Esterase 500 H, Urine RBC 5-10 SEEN, Urine WBC 25-50 SEEN, Ur Squamous Epith Cells 0 SEEN, Urine Bacteria 1+, Urine Mucus 0 SEEN 07/27/24 22:40: PT 13.3, INR 1.0, APTT 25.8 07/27/24 22:45: Blood Type O POSITIVE, Antibody Screen NEGATIVE 07/28/24 00:10: Lactic Acid < 1.0 07/28/24 00:15: Procalcitonin 0.03 07/28/24 05:26: WBC 12.9 H, RBC 3.55 L, Hgb 9.9 L, Hct 31.0 L, MCV 87.3, MCH 27.9, MCHC 31.9 L, RDW Std Deviation 48.3 H, RDW Coeff of Wen 15.2 H, Plt Count 203, MPV 11.5, Immature Gran % (Auto) 0.500, Neut % (Auto) 57.4, Lymph % (Auto) 27.5, [place] % (Auto) 7.0, Eos % (Auto) 7.3 H, Baso % (Auto) 0.3, Absolute Neuts (auto) 7.4, Absolute Lymphs (auto) 3.55, Nucleated RBC % 0, Sodium 140, Potassium 3.9, Chloride 109 H, Carbon Dioxide 22.9, Anion Gap 9, BUN 18, Creatinine 0.71, Estim Creat Clear Calc 60.16, Est GFR (MDRD) Non-Af 89, BUN/Creatinine Ratio 25.1 H, Glucose 126 H, Hemoglobin A1c 7.8 H, Calcium 8.7, Phosphorus 3.3, Magnesium 2.2, Total Bilirubin 0.24, AST 8, ALT 12, Alkaline Phosphatase 90, Total Protein 6.3, Albumin 3.6, Globulin 2.7, Albumin/Globulin Ratio 1.3, TSH 1.550 07/28/24 06:00: POC Glucose 131 H 07/28/24 12:28: POC Glucose 139 H Charges/Coding Visit Charges Inpatient E&M: 94611 Subs Hosp L2
[2024-07-28] MEDS: Morphine 2 MG/ML Syringe IV ×2 (11:48→21:14)
--- NOTE | 2024-07-28 11:53 | CASEMGMT ---
BRETT JOSE Assessment: Face to Face with pt for initial transition planning/care coordination assessment. RN REBECA introduced self and role at [facility], pt voices understanding and consents to assessment. Pt is A&O x4 and answers all questions appropriately at this time. Pt was lying in bed in no distress, RN in room, was leaving when RN CM entered. Care providers, pharmacy, and demographics verified/updated. Strata: 2 Admitting Dx: LGIB, Diverticulosis, UTI & Dehydration PCP: Jesse Specialists: Whitney, Podiatry Preferred Pharmacy: [facility] Insurance: [facility] Dual Complete BRIGETTE Prescription Benefit: yes LNOK: Eliel Living Arrangements: Pt lives with in a trailer with 5 steps and railing to enter. ADLs: Pt reports I at baseline. Transportation: Pt drives self and denies concerns with transportation. DME: CPAP with O2 at night through [employer], walker, cane, Glucometer & Supplies HHC/SNF: Denies Hx of. Pt states no concerns with going home at time of dc. Pt states no further concerns/needs. CM to follow. Advised pt to ask CM if any further question/concerns/needs arise, voices understanding. Pt Goal: Home Plan: Pt denies any home going needs. Home with family support. Follow for any O2 changes. Tiny WEST CM
[2024-07-28 12:46] LABS: Bedside Glucose 139 mg/dL (74-106)
--- NOTE | 2024-07-28 14:15 | CHAPLAIN ---
Type of Pastoral Visit _x__ Initial Visit ___ Follow-up Visit ___ On-call Visit ___ General Patient Visit ___ Spiritual Assessment ___ Family Conference ___ Bereavement ___ Rapid Response ___ Code Blue ___ Other (describe below) Pastoral Care Referral From _x__ Patient ___ Family ___ Nurse ___ Physician ___ Personal Care Worker ___ Tab Cutter ___ Other (describe below) Sacrament/Intervention _x__ Active listening ___ Anointing ___ Jain ___ Bereavement ___ Communion ___ Georgette exploration ___ ___ Life review _x__ Prayer ___ Reconciliation ___ Sacrament of Sick _x__ Supportive presence ___ Wedding ___ Other (describe below) Pastoral Comments patient said she was waiting to see the culinary instructor; pt is anxious and wants to get her 'surgery/procedure' done so she can leave; daughter and friend are in the room and are encouraging her to stay until procedure can be done; pt says that she needs prayer; pt uses humor to deflect the conversation; pt is offered support and is asked about her concerns or needs
--- NOTE | 2024-07-28 14:56 | PCM.PRE.AN2 ---
ASA Classification* ASA Classification ASA Classification: 3 (patient reports she uses 2L O2 at night time in addition to CPAP machine) Assessment & Plan Anesthesia* Anesthesia Assessment Anesthesia Assessment: Discussed sedation and/or anesthesia options, risks, benefits, and alternatives with patient/parents/legal guardian/POA. Questions invited. The patient/parents/legal guardian/POA seems to understand and agrees to proceed with anesthesia plan. Reviewed the physical assessment, medical history, allergy history and patient home medications list prior to surgery/procedure/anesthetic and documented any changes. Performed airway and anesthesia risk assessments. Anesthesia Type Anesthesia Type: MAC History Source History Obtained from:: Patient and Chart Anesthesia Focused Assessment* Temperature: 98.6 F Pulse Rate: 98 Blood Pressure: 145/80 Respiratory Rate: 18 Pulse Ox: 94 Oxygen Delivery Method: Room Air Airway Assessment Mouth opens: >3 cm Mallampati Score: II Teeth Condition: Intact Focused Labs Anesthesia Preop lab: CBC WBC 12.9 K/mm3 (4.4-11.0) H 07/28/24 05:07/28/24 RBC 3.55 M/mm3 (4.2-5.4) L 07/28/24 05:07/28/24 Hgb 9.9 g/dL (12.0-15.0) L 07/28/24 05:07/28/24 Hct 31.0 % (37-47) L 07/28/24 05:07/28/24 Plt Count 203 K/mm3 (150-450) 07/28/24 05:07/28/24 CHEMISTRY Potassium 3.9 mmol/L (3.3-5.1) 07/28/24 05:07/28/24 Sodium 140 mmol/L (133-145) 07/28/24 05:07/28/24 Magnesium 2.2 mg/dL (1.5-2.2) 07/28/24 05:07/28/24 Phosphorus 3.3 mg/dL (2.7-4.5) 07/28/24 05:07/28/24 BUN 18 mg/dL (4-19) 07/28/24 05:07/28/24 Creatinine 0.71 mg/dL (0.70-1.20) 07/28/24 05:07/28/24 Glucose 126 mg/dL (70-99) H 07/28/24 05:26 07/28/24 POC Glucose 139 mg/dL (74-106) H 07/28/24 12:28 07/28/24 TSH 1.550 uIU/mL (0.300-4.200) 07/28/24 05:26 07/28/24 COAG PT 13.3 SECONDS (11.7-14.9) 07/27/24 22:40 07/27/24 Pre-Assessment Diagnosis/Proposed Procedure Planned Operative Procedure(s): EGD Anesthesia History 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 When Was Last Pacemaker Check QUESTION #4 FULL TEXT: You/Your Family Experience fever (hyperthermia) with Anesthesia Last Oral Intake Last Oral intake: Last Oral Intake NPO since 00:00 07/28/24 14:28 Meds taken in AM with sips of No 07/28/24 14:28 water? 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 control drill press operator Female HX of Motion Sickness HX of N/V After Surgery Non-Smoker Duration of Surgery greater than 60 minutes Number of Risk Factors PONV Score Height & Weight Height & Weight: Anesthesia: Height & Weight Height 5 ft 1 in 07/28/24 14:28 Weight: 85.1 kg 07/28/24 14:28 Body Mass Index (BMI) 35.4 07/28/24 14:28 Respiratory Assessment Respiratory Assessment - numerical control drill press operator: Respiratory Tract Infection Hx - numerical control drill press operator Hx Respiratory Tract Infection No 05/28/17 09:42 STOP Sleep Apnea STOP Sleep Apnea - numerical control drill press operator: STOP Sleep Apnea - numerical control drill press operator Hx Hypertension Yes: CONTROLLED WITH MEDS 07/28/24 04:35 Hx Sleep Apnea Yes 07/28/24 04:35 CPAP Yes: DOESNT WEAR MACHINE 07/28/24 04:35 BIPAP No 07/28/24 04:35 Do you snore loudly (louder than talking or can be heard Do you often feel tired/ fatigued/ sleepy during daytime? Has anyone observed you stop breathing during sleep? STOP Results Positive 07/28/24 04:35 QUESTION #5 FULL TEXT : Do you snore loudly (louder than talking or can be heard through closed doors)? 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 Specify any problems Hx of Preganancy in last 3 No 07/28/24 04:35 Months Nurse Filling Out Transfusion RWALKER 07/28/24 04:35 & Questions: Date: 07/28/24 07/28/24 04:35 Time: 04:48 07/28/24 04:35 Patient unable to answer at this time (ie. 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 INHALATION Q4H PRN PRN COPD Glucagon 1 mg 07/28/24 04:35 Glucagon 1 Mg/Ml Syringe IM X1 PRN HYPOGLYCEMIA Protocol Sodium Chloride 1,000 mls @ 100 mls/hr 07/28/24 04:22 07/28/24 14:32 IV 07/29/24 00:21 0 mls/hr .Q10H PRASHANT Infusion Ceftriaxone Sodium 1 gm in 50 mls @ 100 mls/hr 07/28/24 22:00 Rocephin IV 2200 PRASHANT Dextrose 250 mls @ 0 mls/hr 07/28/24 04:35 Dextrose 10%-Water IV .Q0M PRN HYPOGLYCEMIA Protocol As Directed Pantoprazole Sodium 40 mg/ 110 mls @ 330 mls/hr 07/28/24 10:00 07/28/24 11:29 Sodium Chloride IV Infused Q12 PRASHANT Infusion Lactated Ringer's 1,000 mls @ 15 mls/hr 07/28/24 14:45 IV .Q48H PRASHANT Insulin Human Lispro 0 unit 07/28/24 06:00 07/28/24 12:33 Insulin Lispro 100 Unit/Ml Insuln.Pen SC Not Given Q6 [facility] Protocol Morphine Sulfate 2 mg 07/28/24 04:35 07/28/24 11:48 Morphine 2 Mg/Ml Syringe IV 2 mg Q4H PRN PRN Administration Pain Score 6-10 Ondansetron HCl 4 mg 07/28/24 04:35 Ondansetron 4 Mg/2 Ml Vial IV Q8H PRN PRN NAUSEA/VOMITING Sodium Chloride 10 - 40 ml 07/28/24 04:36 07/28/24 04:53 0.9% Saline Lock 10 Ml Syringe IV 10 ml UD PRN Administration SALINE FLUSH PFSH Medical History Diabetes mellitus type 2 in obese Obesity COPD (chronic obstructive pulmonary disease) Perforation of sigmoid colon due to diverticulitis Home Medications ?Medication ?Instructions ?Recorded ?Last Taken ?Type glimepiride 4 mg tablet 4 mg PO BID diabetes 08/28/16 07/28/24 History lisinopril 10 mg tablet 10 mg PO DAILY blood pressure 08/28/16 07/28/24 History oxycodone-acetaminophen 10 mg-325 1 tab PO BID PRN Pain 08/28/16 07/27/24 History mg tablet simvastatin 20 mg tablet 20 mg PO QHS cholesterol 08/28/16 07/27/24 History sitagliptin phosphate 100 mg tablet 100 mg PO DAILY diabetes 08/28/16 07/28/24 History albuterol sulfate 90 mcg/actuation 1 - 2 puff inhalation Q6H PRN PRN 09/03/16 07/27/24 History aerosol inhaler COPD pantoprazole 40 mg tablet,delayed 40 mg PO DAILY GERD 09/03/16 07/28/24 History release ferrous sulfate 325 mg (65 mg 325 mg PO DAILY supplement 05/28/17 07/28/24 History iron) tablet aspirin 81 mg chewable tablet 81 mg PO DAILY heart health 06/22/18 07/28/24 History empagliflozin 10 mg tablet 10 mg PO DAILY 02/04/23 07/28/24 History (Jardiance) levothyroxine 112 mcg tablet 112 mcg PO DAILY thyroid 02/04/23 07/28/24 History ascorbic acid (vitamin C) 500 mg 500 mg PO BID supplement 07/28/24 07/28/24 History tablet cholecalciferol (vitamin D3) 50 50 mcg PO Q2D supplement 07/28/24 07/27/24 History mcg (2,000 unit) capsule furosemide 20 mg tablet 20 - 40 mg PO DAILY PRN swelling 07/28/24 07/27/24 History naproxen 500 mg tablet 500 mg PO BID PRN pain 07/28/24 07/28/24 History tizanidine 4 mg tablet 4 mg PO QHS 07/28/24 07/27/24 History Allergy/AdvReac Type Severity Reaction Status Date / Time atropine sulfate (From Allergy Rash Verified 07/27/24 20:31 ) famotidine (From Pepcid) Allergy Rash Verified 07/27/24 20:31 hyoscyamine sulfate (From Allergy Rash Verified 07/27/24 20:31 ) ibuprofen Allergy Rash Verified 07/27/24 20:31 phenobarbital (From ) Allergy Rash Verified 07/27/24 20:31 scopolamine hydrobromide Allergy Rash Verified 07/27/24 20:31 (From ) ketorolac tromethamine (From AdvReac Nausea Verified 07/27/24 20:31 Toradol) rofecoxib (From Vioxx) AdvReac Nausea Verified 07/27/24 20:31 tramadol AdvReac Nausea Verified 07/27/24 20:31 Family History Brother Diabetes Heart disease Hypertension CAD (coronary artery disease) Surgical History S/P appendectomy S/P hysterectomy S/P laparoscopic cholecystectomy s/p right lung lobectomy Social History Smoking Status: Never smoker alcohol intake: never Review of Systems (Anesthesia) ROS Narrative System reviewed and no additional complaints, except as documented. Physical Exam Const alert and oriented x3 HEENT dentition normal Resp normal respiratory effort Cardio regular rate
--- NOTE | 2024-07-28 15:10 | PCM.PN.BLA ---
Progress Note Patient's hemoglobin was 12.8. Currently is down to 9.9. She takes aspirin and vitamin C and has been on iron for iron deficiency anemia. She will undergo an upper endoscopy today. Physical Exam Const alert, oriented x3, no apparent distress and healthy appearing General Appearance: cooperative GI normal to inspection, nondistended, normoactive bowel sounds, soft to palpation, non-tender and non-distended Percussion: normal to percussion Rectal Exam: deferred Assessment & Plan Assessment/Plan (1) Lower GI bleed: (2) Diverticulosis: (3) Acute cystitis with hematuria: (4) Dehydration: (5) Obesity (BMI 30-39.9): (6) Diabetes mellitus type 2 in obese: PLAN: Plan 74-year-old female admitted with blood in the stool. Differential diagnosis is acute upper GI bleed with rapid transit. If this upper endoscopy is negative then she will likely need a colonoscopy plus or minus capsule endoscopy. Visit Charges Inpatient E&M: 57625 Subs Hosp L2
--- NOTE | 2024-07-28 15:30 | EGD_PTH ---
PATIENT: FINESSE AUGUST LOC: [facility] U#:[id number] AGE/SX: 74/F ROOM: [facility] RE07/28/[address]: Dr. Barry Goel MD : 1950 BED: 1 DIS: 07/31/2024 SPEC #: [id number] RECD: 07/28/24 17:22 STATUS: LEONILA REMaeve #: [id number] BRIA: 07/28/24 15:[address]: Yahir Coles DEPT: SURGICAL PATHOLOGY RECD BY: Dany Laura ENTERED: 07/31/24 07:34 SP TYPE: EGD BIOPSY OT DR: Dr. Maurice Saravia, DO Dr. Luis Molina, DO Dr. Barry Goel MD Tissues: A - Gastric mucous membrane Procedures: Immunohistochemical Stains Surgery Specimen Level IV HEADER OPERATION: EGD with biopsy PRE-OP DIAGNOSIS: Lower GI bleed, diverticulitis, acute cystitis with hematuria, dehydration, obesity, diabetes mellitus type 2 in obese TISSUE SUBMITTED: A- Gastric antrum biopsy MICROSCOPIC DIAGNOSIS A. Stomach, gastric antrum, biopsy: * Antral/oxyntic mucosa with mild chronic focal active inflammation * No morphologic evidence of Helicobacter pylori organisms on H&E or immunostained sections MICROSCOPIC DESCRIPTION Slides are reviewed. GROSS DESCRIPTION A. Received in formalin in a container labeled with the patient's name, date of , and gastric antrum for H. pylori and path are multiple jiang-pink fragments of mucosal tissue measuring 0.9 x 0.4 x 0.3 cm in aggregate. Submitted in toto in A1. [facility] 07-31-2024 CPT:37593,62416
--- NOTE | 2024-07-28 15:38 | OP.EGD_ITS ---
Patient Name: Anamaria Strickland Procedure Date: 07/28/2024 3:11 PM Date of : 1950 Age: 74 Procedure: Upper GI endoscopy Indications: Epigastric abdominal pain Providers: Yahir Coles DO Medicines: Monitored Anesthesia Care Patient Profile: This is a 74 year old female. Refer to note in patient chart for documentation of history and physical. Patient has symptoms. Complications: No immediate complications. Procedure: Pre-Anesthesia Assessment: - Prior to the procedure, a History and Physical was performed, and patient medications and allergies were reviewed. The patient is competent. The risks and benefits of the procedure and the sedation options and risks were discussed with the patient. All questions were answered and informed consent was obtained. Patient identification and proposed procedure were verified by the physician in the pre-procedure area. Mental Status Examination: alert and oriented. Airway Examination: normal oropharyngeal airway and neck mobility. Respiratory Examination: clear to auscultation. CV Examination: normal. Prophylactic Antibiotics: The patient does not require prophylactic antibiotics. Prior Anticoagulants: The patient has taken no anticoagulant or antiplatelet agents except for NSAID medication. ASA Grade Assessment: II - A patient with mild systemic disease. After reviewing the risks and benefits, the patient was deemed in satisfactory condition to undergo the procedure. The anesthesia plan was to use moderate sedation / analgesia (conscious sedation). Immediately prior to administration of medications, the patient was re-assessed for adequacy to receive sedatives. The heart rate, respiratory rate, oxygen saturations, blood pressure, adequacy of pulmonary ventilation, and response to care were monitored throughout the procedure. The physical status of the patient was re-assessed after the procedure. After obtaining informed consent, the endoscope was passed under direct vision. Throughout the procedure, the patient's blood pressure, pulse, and oxygen saturations were monitored continuously. The gastroscope was introduced through the mouth, and advanced to the third part of the duodenum. Small bowel enteroscopy was deemed necessary. The upper GI endoscopy was accomplished without difficulty. The patient tolerated the procedure well. Scope In: 3:24:59 PM Scope Out: 3:27:35 PM Total Procedure Duration Time 0 hours 2 minutes 36 seconds Findings: The examined esophagus was normal. Patchy mild inflammation characterized by erythema was found in the gastric body. Biopsies were taken with a cold forceps for histology. Verification of patient identification for the specimen was done. Biopsies were taken with a cold forceps for Helicobacter pylori testing. Verification of patient identification for the specimen was done. Estimated blood loss was minimal. The examined duodenum was normal. Impression: - Normal esophagus. - Chronic gastritis. Biopsied. - Normal examined duodenum. Recommendation: - Return patient to hospital bowser for ongoing care. - Resume previous diet. - Continue present medications. - Await pathology results. Procedure Code(s): --- Professional --- 22323, Small intestinal endoscopy, enteroscopy beyond second portion of duodenum, not including ileum; with biopsy, single or multiple CPT copyright 2021 [employer]. All rights reserved. The codes documented in this report are preliminary and upon fpga engineer review may be revised to meet current compliance requirements. Yahir Coles DO 07/28/2024 3:38:06 PM This report has been signed electronically. Number of Addenda: 0 Note Initiated On: 07/28/2024 3:11 PM
--- NOTE | 2024-07-28 15:38 | OP.CCLET_ITS ---
07/28/2024 Luis Molina [address] [place] [address] Re : Upper GI endoscopy procedure for Anamaria Marco A Dear Dr. Molina This procedure was performed on Sunday, July 28, 2024. My impressions and recommendations are as follows: Impressions : - Normal esophagus. - Chronic gastritis. Biopsied. - Normal examined duodenum. Recommendations : - Return patient to hospital bowser for ongoing care. - Resume previous diet. - Continue present medications. - Await pathology results. My findings are described in the full procedure note, which is enclosed. If I can be of further assistance, please feel free to contact me at . Sincerely, Yahir Coles, 07/28/2024 3:38:06 PM This report has been signed electronically.
--- NOTE | 2024-07-28 16:14 | PCM.POST.ANE ---
Anesthesia: Postop Eval I Current Vital Signs Temperature: 97.5 F Pulse Rate: 100 Blood Pressure: 111/81 Respiratory Rate: 16 Pulse Ox: 95 Oxygen Delivery Method: Room Air Assessment Airway patent: Yes Spontaneous unlabored respirations: Yes Mental status: Awake nausea: No Vomiting: No Anesthesia Complication: No Fluid Hydration Crystalloid volume administer (ml): 250 Total IV fluid infused: 250 Progress Note Anesthesia document: Postop Eval 1 completed: Yes
--- NOTE | 2024-07-28 16:32 | POSTOPAN2_ITS ---
Anesthesia Postop Eval I Sum Postop Eval Completion status Anesthesia document: Postop Eval 1 completed: Yes Anesthesia Postop Eval I Summary Anesthesia Postop Eval I Summary: Anesthesia Postop Eval I: Assessment Summary Airway patent Yes 07/28/24 16:15 PAVILION [email or web address] Spontaneous unlabored Yes 07/28/24 16:15 PAVILION [email or web address].ACAR respirations Mental status Awake 07/28/24 16:15 PAVILION [email or web address] nausea No 07/28/24 16:15 PAVILION CUTTER.ACAR Vomiting No 07/28/24 16:15 PAVILION [email or web address].ACAR Anesthesia Postop Eval I: Fluid Summary Crystalloid volume administer 250 07/28/24 16:15 PAVILION [email or web address].ACAR (ml) Colloids volume administered ( ml) Blood Product volume administered (ml) Total IV fluid infused 250 07/28/24 16:15 PAVILION [email or web address].ACAR Anesthesia Postop Eval I: Summary Notes Anesthesia Complication No 07/28/24 16:15 PAVILION [email or web address].ACAR Anesthesia Complication Comment: Post-operative progress note Anesthesia: Postop Eval II Evaluation Mental status: Awake and Calm Pain Level: 2 nausea: No Vomiting: No
--- NOTE | 2024-07-28 16:32 | PCM.POSTANE2 ---
Anesthesia Postop Eval I Sum Postop Eval Completion status Anesthesia document: Postop Eval 1 completed: Yes Anesthesia Postop Eval I Summary Anesthesia Postop Eval I Summary: Anesthesia Postop Eval I: Assessment Summary Airway patent Yes 07/28/24 16:15 PLANTING MACHINE CREWMAN.ACAR Spontaneous unlabored Yes 07/28/24 16:15 PLANTING MACHINE CREWMAN.ACAR respirations Mental status Awake 07/28/24 16:15 PLANTING MACHINE CREWMAN.ACAR nausea No 07/28/24 16:15 PLANTING MACHINE CREWMAN.ACAR Vomiting No 07/28/24 16:15 PLANTING MACHINE CREWMAN.ACAR Anesthesia Postop Eval I: Fluid Summary Crystalloid volume administer 250 07/28/24 16:15 PLANTING MACHINE CREWMAN.ACAR (ml) Colloids volume administered ( ml) Blood Product volume administered (ml) Total IV fluid infused 250 07/28/24 16:15 PLANTING MACHINE [email or web address].ACAR Anesthesia Postop Eval I: Summary Notes Anesthesia Complication No 07/28/24 16:15 PLANTING MACHINE CREWMAN.ACAR Anesthesia Complication Comment: Post-operative progress note Anesthesia: Postop Eval II Evaluation Mental status: Awake and Calm Pain Level: 2 nausea: No Vomiting: No
[2024-07-28] MEDS: Sodium Ferric Gluconat/Sucrose 250 MG in 0.9% Normal Saline (250mL Bag) 250 ML 135 MG IV (16:44)
[2024-07-28] MEDS: 0.9% Normal Saline (250mL Bag) 250 ML 15 ML IV (16:45)
[2024-07-28 17:40] LABS: Bedside Glucose 104 mg/dL (74-106)
[2024-07-28 23:56] LABS: Bedside Glucose 126 mg/dL (74-106)
[2024-07-29] VITALS (22 sets, daily range): BP systolic 95–145; BP diastolic 41–80; PULSE 76–131; RESP 16–18; TEMP 36.1–36.8; O2SAT 93–98; BMI 35.6
--- NOTE | 2024-07-29 01:02 | CPS ---
Pt has her home unit autopap. It is assembled and is in use.
[2024-07-29 05:42] LABS: Absolute Lymphocyte Count 2.13 X10^3/uL (0.83-4.51); Absolute Neutrophil Count 8.9 X10^3/uL (2.0-7.7); Basophil# 0.02 X10^3/uL; Basophil% 0.2 % (0-1); Eosinophil# 0.69 X10^3/uL; Eosinophils% 5.5 % (0-5); Hematocrit 25.6 % (37-47); Lymphocyte # 2.13 X10^3/ul (0.83-4.51); Lymphocyte % 16.8 % (19-41); Mean Corp Hgb Conc 31.3 g/dL (32-36); Mean Corpuscular Hgb 28.1 pg (27.0-32.0); Mean Corpuscular Volume 89.8 fL (81-99); Mean Platelet Vol. 11.4 fl (6.2-12.0); Monocyte% 6.3 % (0-10); NRBC Flagged by Analyzer 0 % (0-5); Neutrophil # 8.94 X10^3/uL (2.7-7.7); Neutrophil % 70.6 % (47-70); Platelet Count 189 K/mm3 (150-450); RBC Distribution Width CV 15.5 % (11.6-14.6); Red Blood Count 2.85 M/mm3 (4.2-5.4); White Blood Count 12.7 K/mm3 (4.4-11.0)
[2024-07-29 06:20] LABS: Anion Gap 8 (5-15); BUN 15 mg/dL (4-19); Calcium,Total 8.1 mg/dL (7.6-11.0); Carbon Dioxide 21.2 mmol/L (21.0-32.0); Chloride 110 mmol/L (98-108); Creatinine, Serum 0.67 mg/dL (0.70-1.20); EST Glomerular Filtration Rate 91 (>60); Estimated Creatinine Clearance 60.31 ml/min (50-250); Glucose 146 mg/dL (70-99); Potassium 4.1 mmol/L (3.3-5.1); Sodium Level 139 mmol/L (133-145)
[2024-07-29 06:45] LABS: Bedside Glucose 154 mg/dL (74-106)
--- NOTE | 2024-07-29 08:28 | NURSING ---
ritesh blue in lab-0900Hgb was drawn over an hour early (just had 1 at 5 am)-need to redraw @ 0900-she said she would let the, know and correct
[2024-07-29 09:11] LABS: Hemoglobin 7.9 g/dL (12.0-15.0)
--- NOTE | 2024-07-29 09:16 | NURSING ---
nathaniel francisco has not arrived for pt administration
[2024-07-29] MEDS: Pantoprazole Sodium 40 MG in 0.9% Normal Saline (100mL MB+) 100 ML 330 MG IV ×2 (09:17→20:19)
[2024-07-29] MEDS: Sodium Ferric Gluconat/Sucrose 250 MG in 0.9% Normal Saline (250mL Bag) 250 ML 135 MG IV (10:45)
[2024-07-29] MEDS: Electrolyte Solution/Peg's 4000 ML 1000 ML PO (10:51)
--- NOTE | 2024-07-29 11:43 | NURSING ---
pt tolerating prep well has drank approx 750 ml-will allow cl. liq lunch and begin again
[2024-07-29 11:44] LABS: Bedside Glucose 177 mg/dL (74-106)
--- NOTE | 2024-07-29 12:01 | NURSING ---
pt has drank another 250 of prep-tolerating well
--- NOTE | 2024-07-29 12:44 | PN.HOSP_ITS ---
Reason for Visit Reason for Visit: Diagnoses Type 2 diabetes mellitus with other specified complication (07/28/24) Obesity, unspecified (07/28/24) Dehydration (07/28/24) Diverticulosis of intestine, part unspecified, without perforation or abscess without bleeding (07/28/24) Gastrointestinal hemorrhage, unspecified (07/28/24) Acute cystitis with hematuria (07/28/24) Objective Data Objective Data Vital Signs: Vital Signs Temp Pulse Resp BP Pulse Ox O2 Del Method O2 Flow Rate 97.9 F 99 18 120/71 95 Room Air 4 07/29/24 10:16 07/29/24 10:16 07/29/24 10:16 07/29/24 10:16 07/29/24 10:16 07/29/24 10:16 07/28/24 15:38 Oxygen Flow Rate (L/min) 4 Oxygen Delivery Method Room Air Weight: 188 lb 7.924 oz Body Mass Index (BMI) 35.6 Intake & Output: Intake and Output for Last 24 Hours 07/27/24 07/28/24 07/29/24 23:59 23:59 23:59 Intake Total 1000 / 1000 2585.00 / 2585.00 1593.33 / 1593.33 Balance 1000 / 1000 2585.00 / 2585.00 1593.33 / 1593.33 Lab / Micro Data 07/29/24 09:04 07/29/24 05:15 Labs: Laboratory Results - last 24 hr 07/28/24 12:28: POC Glucose 139 H 07/28/24 17:21: POC Glucose 104 07/28/24 23:39: POC Glucose 126 H 07/29/24 05:08: WBC 12.7 H, RBC 2.85 L, Hgb 8.0 L, Hct 25.6 L, MCV 89.8, MCH 28.1, MCHC 31.3 L, RDW Std Deviation 50.0 H, RDW Coeff of Wen 15.5 H, Plt Count 189, MPV 11.4, Immature Gran % (Auto) 0.600, Neut % (Auto) 70.6 H, Lymph % (Auto) 16.8 L, Mckinley % (Auto) 6.3, Eos % (Auto) 5.5 H, Baso % (Auto) 0.2, A bsolute Neuts (auto) 8.9 H, Absolute Lymphs (auto) 2.13, Nucleated RBC % 0 07/29/24 05:15: Sodium 139, Potassium 4.1, Chloride 110 H, Carbon Dioxide 21.2, Anion Gap 8, BUN 15, Creatinine 0.67 L, Estim Creat Clear Calc 60.31, Est GFR (MDRD) Non-Af 91, BUN/Creatinine Ratio 22.0 H, Glucose 146 H, Calcium 8.1 07/29/24 06:28: POC Glucose 154 H 07/29/24 07:54: Hgb Cancelled 07/29/24 09:04: Hgb 7.9 L 07/29/24 11:18: POC Glucose 177 H Micro: Microbiology 07/27/24 21:55 Urine, Clean Catch Urine Culture - Preliminary Gram negative robert 07/27/24 01:41 Stool Stool Occult Blood (HOLLI) - Final Occult Blood Positive Physical Exam Narrative Seen and examined Patient stated she had 5 dark red/reddish stool since last evening/night. No abdominal discomfort but has chronic left hip pain. 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 Physical exam General: Alert, Oriented x3, Cooperative HEENT: Atraumatic, PERRLA, EOMI, Normocephalic. Oral: No Gingival or Mucosal Lesions/ Ulcerations Neck: Supple, No JVD, Negative Carotid Bruits Chest wall/Lungs: Air entry diminished in right lung base . No crepitation/rhonchi Cardiovascular: Regular rate and rhythm, Normal S1,S2, No M/G/R Abdomen: Bowel Sounds Present, Soft, Non Tender, Non-Distended : No dysuria. No renal angle tenderness. No suprapubic tenderness. Extremities: No edema, Capillary Refill Less than 3 Seconds Skin: No rashes, No breakdown Musculoskeletal: Left hip greater trochanter is tender on deep palpation. No Tenderness to Palpation of other joints or Extremities. ROM of the restricted. Neurological: Cranial nerves II-XII grossly intact, DTR 2+/4. No acute focal neurological deficit. Psych/Mental Status: Normal Affect, Appropriate. Assessment & Plan Assessment/Plan (1) Lower GI bleed: (2) Diverticulosis: (3) Acute cystitis with hematuria: (4) Dehydration: (5) Obesity (BMI 30-39.9): (6) Diabetes mellitus type 2 in obese: PLAN: Plan 74-year-old female admitted with blood in the stool, large amount since 11 AM on day of admission also complained of headache nausea, Lightheadedness/dizziness. History of diverticulitis. Complain of lower abdominal pain 1. Acute lower GI bleed with acute blood loss anemia: Patient is being admitted to PCU. GI consulted. Patient admitted with hemoglobin 11.7 decreased to 9.9. No indication of PRBC transfusion CT abdomen/pelvis shows no evidence of acute GI bleed, aortic dissection thrombosis or aneurysm. Colonic diverticulosis without diverticulitis. Hepatomegaly 07/29: Acute blood loss anemia: Hemoglobin dropped from 11.7 g to 7.9 g%. Iron infusion done. Check H&H at 8 PM tonight and if hemoglobin less than 7 g will need PRBC transfusion. 2. Abnormal UA with severe Leukocytosis of 20.1K present on admission: Patient denies burning micturition, increased frequency or urgency. UA WBC 25-50 cells, RBC 5-10 nitrite negative. Urine blood culture pending. Empirically on IV ceftriaxone 07/29: Prelim urine culture shows GNR 11,000-25,000 colonies. Discontinue antibiotic. UTI ruled out 3. Dehydration evidenced by elevated BUN/creatinine ratio of 25.3 present on admission: Volume resuscitation 4. Obesity; BMI of 35 KG per square meter weight loss. 5. DM-2; unknown control on sitagliptin, empagliflozin and glimepiride twice daily. A1c 7.8% 6. Essential hypertension; on lisinopril and furosemide daily as needed - Hold oral antihypertensives. Give IV hydralazine as needed for systolic blood pressure greater than 160 mmHg. 7. Hyperlipidemia; on simvastatin - Hold statin 8. Hypothyroidism; on levothyroxine - Restart oral levothyroxine after colonoscopy. TSH normal. 9. History of tobacco abuse; with subsequent COPD on as needed albuterol -on as needed albuterol nebulization. No acute exacerbation 11. Acute on chronic EVONNE; on ferrous sulfate -on IV iron infusion as mentioned above 16. GERD; on pantoprazole - Patient started on PPI IV for #1. 17. OA; on naproxen daily and as needed oxycodone-acetaminophen twice daily as needed -no NSAIDs. 18. DVT prophylaxis - SCD's only in light of recent lower GI bleed outlined in #1. Microbiology Past 72 Hours 07/27/24 21:55 Urine, Clean Catch Urine Culture - Preliminary Gram negative robert 07/27/24 01:41 Stool Stool Occult Blood (HOLLI) - Final Occult Blood Positive Laboratory Results 07/28/24 17:21: POC Glucose 104 07/28/24 23:39: POC Glucose 126 H 07/29/24 05:08: WBC 12.7 H, RBC 2.85 L, Hgb 8.0 L, Hct 25.6 L, MCV 89.8, MCH 28.1, MCHC 31.3 L, RDW Std Deviation 50.0 H, RDW Coeff of Wen 15.5 H, Plt Count 189, MPV 11.4, Immature Gran % (Auto) 0.600, Neut % (Auto) 70.6 H, Lymph % (Auto) 16.8 L, Mckinley % (Auto) 6.3, Eos % (Auto) 5.5 H, Baso % (Auto) 0.2, A bsolute Neuts (auto) 8.9 H, Absolute Lymphs (auto) 2.13, Nucleated RBC % 0 07/29/24 05:15: Sodium 139, Potassium 4.1, Chloride 110 H, Carbon Dioxide 21.2, Anion Gap 8, BUN 15, Creatinine 0.67 L, Estim Creat Clear Calc 60.31, Est GFR (MDRD) Non-Af 91, BUN/Creatinine Ratio 22.0 H, Glucose 146 H, Calcium 8.1 07/29/24 06:28: POC Glucose 154 H 07/29/24 07:54: Hgb Cancelled 07/29/24 09:04: Hgb 7.9 L 07/29/24 11:18: POC Glucose 177 H Hemoglobin A1c 7.8 H, Calcium 8.7, Phosphorus 3.3, Magnesium 2.2, Total Bilirubin 0.24, AST 8, ALT 12, Alkaline Phosphatase 90, Total Protein 6.3, Albumin 3.6, Globulin 2.7, Albumin/Globulin Ratio 1.3, TSH 1.550 07/28/24 06:00: POC Glucose 131 H 07/28/24 12:28: POC Glucose 139 H Charges/Coding Visit Charges Inpatient E&M: 67916 Subs Hosp L2
--- NOTE | 2024-07-29 13:21 | CT_ITS ---
EXAM: CT Angiography Abdomen and Pelvis Without and With Intravenous Contrast CLINICAL INDICATION: ACUTE LOWER GI BLEED TECHNIQUE: Axial computed tomographic angiography images of the abdomen and pelvis without and with intravenous contrast. This CT exam was performed using one or more of the following dose reduction techniques: automated exposure control, adjustment of the mA and/or kV according to patient size, and/or use of iterative reconstruction technique. MIP reconstructed images were created and reviewed. COMPARISON: CTA Abdomen Pelvis dated 07/27/2024 FINDINGS: VASCULATURE: AORTA: Scattered calcified atherosclerotic disease of the aorta without dissection or aneurysm. No contrast extravasation to suggest active bleed. CELIAC TRUNK AND MESENTERIC ARTERIES: No acute findings. No occlusion or significant stenosis. RENAL ARTERIES: No acute findings. No occlusion or significant stenosis. ILIAC ARTERIES: No acute findings. No occlusion or significant stenosis. LUNG BASES: Partially visualized lung emphysema and pulmonary nodules measuring up to 2 mm. Calcified granulomas. No consolidation. ABDOMEN: LIVER: Hepatomegaly with fatty infiltration. GALLBLADDER AND BILE DUCTS: Unremarkable. No calcified stones. No ductal dilation. PANCREAS: Unremarkable. No ductal dilation. No mass. SPLEEN: Unremarkable. No splenomegaly. ADRENALS: Unremarkable. No mass. KIDNEYS AND URETERS: Unremarkable. No obstructing stones. No hydronephrosis. No solid mass. STOMACH AND BOWEL: Colonic diverticulosis without acute diverticulitis. No obstruction. PELVIS: APPENDIX: No findings to suggest acute appendicitis. BLADDER: Unremarkable. No stones. No mass. REPRODUCTIVE: Unremarkable as visualized. ABDOMEN and PELVIS: INTRAPERITONEAL SPACE: Unremarkable. No significant fluid collection. No free air. BONES/JOINTS: Stable osseous structures. No acute fracture. No dislocation. SOFT TISSUES: Unremarkable. LYMPH NODES: Unremarkable. No enlarged lymph nodes. CT/CTA Abd/Pelvis W/WO Contrast IMPRESSION: 1. Scattered calcified atherosclerotic disease of the aorta without dissection or aneurysm. No contrast extravasation to suggest active bleed. 2. Hepatomegaly with fatty infiltration. 3. Colonic diverticulosis without acute diverticulitis. Reading Location: [id number]
--- NOTE | 2024-07-29 13:49 | NURSING ---
pt to CT via bed
--- NOTE | 2024-07-29 13:50 | NURSING ---
family in room with pt and hospice nurse
--- NOTE | 2024-07-29 13:51 | NURSING ---
pt has returned from CT
--- NOTE | 2024-07-29 16:21 | PCM.PN.BLA ---
Progress Note I came to evaluate the patient at the bedside. She has still been bleeding profusely. Her last hemoglobin was 7.9. She has been brought down to PCU from general medical floor. CTA of the abdomen pelvis was ordered but no sign of acute GI bleed with seen. Physical Exam Narrative Seen and examined Patient stated she had 5 dark red/reddish stool since last evening/night. Physical exam General: Alert, Oriented x3, Cooperative HEENT: Atraumatic, PERRLA, EOMI, Normocephalic. Oral: No Gingival or Mucosal Lesions/ Ulcerations Neck: Supple, No JVD, Negative Carotid Bruits Chest wall/Lungs: Air entry diminished in right lung base . No crepitation/rhonchi Cardiovascular: Regular rate and rhythm, Normal S1,S2, No M/G/R Abdomen: Bowel Sounds Present, Soft, Non Tender, Non-Distended : No dysuria. No renal angle tenderness. No suprapubic tenderness. Extremities: No edema, Capillary Refill Less than 3 Seconds Skin: No rashes, No breakdown Musculoskeletal: Left hip greater trochanter is tender on deep palpation. No Tenderness to Palpation of other joints or Extremities. ROM of the restricted. Neurological: Cranial nerves II-XII grossly intact, DTR 2+/4. No acute focal neurological deficit. Psych/Mental Status: Normal Affect, Appropriate. Assessment & Plan Assessment/Plan (1) Lower GI bleed: PLAN: Differential diagnosis for lower GI bleed is diverticular, stercoral ulcer, small bowel bleed, angiodysplasia. She should undergo emergent colonoscopy. She was explained alternatives, risk and benefits include not withstanding bleeding, infection, sepsis, perforation, need for return to . She will have an ASA of 3. Visit Charges Inpatient E&M: 31423 Subs Hosp L2
[2024-07-29] MEDS: 0.9% Normal Saline (1000mL) 1,000 ML 999 ML IV (16:30)
[2024-07-29] MEDS: 0.9% Normal Saline (1000mL) 1,000 ML 125 ML IV (16:53)
--- NOTE | 2024-07-29 17:11 | PRE.ANES_ITS ---
ASA Classification* ASA Classification ASA Classification: 3 (patient reports she uses 2L O2 at night time in addition to CPAP machine) and E Assessment & Plan Anesthesia* Anesthesia Assessment Anesthesia Assessment: Discussed sedation and/or anesthesia options, risks, benefits, and alternatives with patient/parents/legal guardian/POA. Questions invited. The patient/parents/legal guardian/POA seems to understand and agrees to proceed with anesthesia plan. Reviewed the physical assessment, medical history, allergy history and patient home medications list prior to surgery/procedure/anesthetic and documented any changes. Performed airway and anesthesia risk assessments. Anesthesia Type Anesthesia Type: MAC History Source History Obtained from:: Patient and Chart Anesthesia Focused Assessment* Temperature: 97.8 F Pulse Rate: 111 Blood Pressure: 116/50 Respiratory Rate: 18 Pulse Ox: 96 Oxygen Flow Rate (L/min): 95 Airway Assessment Mouth opens: >3 cm Mallampati Score: II Teeth Condition: Intact Neck Range of motion (ROM): Full ROM Focused Labs Anesthesia Preop lab: CBC WBC 12.7 K/mm3 (4.4-11.0) H 07/29/24 05:08 5 RBC 2.85 M/mm3 (4.2-5.4) L 07/29/24 05:08 07/29/24 Hgb 7.9 g/dL (12.0-15.0) L 07/29/24 09:04 07/29/24 Hct 25.6 % (37-47) L 07/29/24 05:08 07/29/24 Plt Count 189 K/mm3 (150-450) 07/29/24 05:08 07/29/24 CHEMISTRY Potassium 4.1 mmol/L (3.3-5.1) 07/29/24 05:15 07/29/24 Sodium 139 mmol/L (133-145) 07/29/24 05:15 07/29/24 Magnesium 2.2 mg/dL (1.5-2.2) 07/28/24 05:26 07/28/24 Phosphorus 3.3 mg/dL (2.7-4.5) 07/28/24 05:26 07/28/24 BUN 15 mg/dL (4-19) 07/29/24 05:15 07/29/24 Creatinine 0.67 mg/dL (0.70-1.20) L 07/29/24 05:15 Glucose 146 mg/dL (70-99) H 07/29/24 05:15 07/29/24 POC Glucose 177 mg/dL (74-106) H 07/29/24 11:18 07/29/24 TSH 1.550 uIU/mL (0.300-4.200) 07/28/24 05:26 05/12/14 COAG PT 13.3 SECONDS (11.7-14.9) 07/27/24 22:40 Pre-Assessment Diagnosis/Proposed Procedure Planned Operative Procedure(s): EGD Anesthesia History 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 When Was Last Pacemaker Check QUESTION #4 FULL TEXT: You/Your Family Experience fever (hyperthermia) with Anesthesia Last Oral Intake Last Oral intake: Last Oral Intake NPO since 00:00 07/28/24 14:28 Meds taken in AM with sips of No 07/28/24 14:28 water? 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 operator: PONV - tobacco stripping machine operator Female HX of Motion Sickness HX of N/V After Surgery Non-Smoker Duration of Surgery greater than 60 minutes Number of Risk Factors PONV Score Height & Weight Height & Weight: Anesthesia: Height & Weight Height 5 ft 1 in 07/28/24 14:28 Weight: 85.5 kg 07/29/24 03:07 Body Mass Index (BMI) 35.6 07/29/24 03:07 Respiratory Assessment Respiratory Assessment - tobacco stripping machine operator: Respiratory Tract Infection Hx - tobacco stripping machine operator Hx Respiratory Tract Infection No 05/28/17 09:42 STOP Sleep Apnea STOP Sleep Apnea - tobacco stripping machine operator: STOP Sleep Apnea - tobacco stripping machine operator Hx Hypertension Yes: CONTROLLED WITH MEDS 07/28/24 15:51 Hx Sleep Apnea Yes 07/28/24 04:35 CPAP Yes: DOESNT WEAR MACHINE 07/28/24 15:38 BIPAP No 07/28/24 04:35 Do you snore loudly (louder than talking or can be heard Do you often feel tired/ fatigued/ sleepy during daytime? Has anyone observed you stop breathing during sleep? STOP Results Positive 07/28/24 15:38 QUESTION #5 FULL TEXT : Do you snore loudly (louder than talking or can be heard through closed doors)? 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 Specify any problems Hx of Preganancy in last 3 No 07/28/24 04:35 Months Nurse Filling Out Transfusion RWALKER 07/28/24 04:35 & Questions: Date: 07/28/24 07/28/24 04:35 Time: 04:48 07/28/24 04:35 Patient unable to answer at this time (ie. confused, unrespo /Reproduction History /Reproductive History - tobacco stripping machine operator: /Reproductive Hx- tobacco stripping machine operator Hx Now Gestational Age (in weeks): EDC: Hx Hx Para Hx Section SAB Active Medications Active Medications: Current Medications Generic Name Dose Route Start Last Admin Trade Name Freq PRN Reason Stop Dose Admin Acetaminophen 650 mg 07/28/24 04:35 Acetaminophen 650 Mg Suppository RC Q6H PRN PRN Pain 1-5/10 or Fever Albuterol Sulfate 2.5 mg 07/28/24 04:35 Albuterol 2.5 Mg/3 Ml Vial.Neb. INHALATION Q4H PRN PRN COPD Bisacodyl 10 mg 07/30/24 14:00 Bisacodyl 5 Mg Tablet PO 07/30/24 14:01 1400 PRASHANT Glucagon 1 mg 07/28/24 04:35 Glucagon 1 Mg/Ml Syringe IM X1 PRN HYPOGLYCEMIA Protocol Dextrose 250 mls @ 0 mls/hr 07/28/24 04:35 Dextrose 10%-Water IV .Q0M PRN HYPOGLYCEMIA Protocol As Directed Pantoprazole Sodium 40 mg/ 110 mls @ 330 mls/hr 07/28/24 10:00 07/29/24 09:40 Sodium Chloride IV Infused Q12 PRASHANT Infusion Sodium Chloride 250 mls @ 15 mls/hr 07/28/24 16:09 07/28/24 20:05 IV 0 mls/hr .[id number] PRN Infusion Saline Flush Sodium Chloride 250 mls @ 15 mls/hr 07/28/24 16:09 IV .[id number] PRN Additional IVPB Infusion Sodium Chloride 1,000 mls @ 125 mls/hr 07/29/24 15:55 07/29/24 16:53 IV 125 mls/hr .Q8H PRASHANT Administration Insulin Human Lispro 0 unit 07/28/24 06:00 07/29/24 11:44 Insulin Lispro 100 Unit/Ml Insuln.Pen SC Not Given Q6 [facility] Protocol Morphine Sulfate 2 mg 07/28/24 04:35 07/28/24 21:14 Morphine 2 Mg/Ml Syringe IV 2 mg Q4H PRN PRN Administration Pain Score 6-10 Ondansetron HCl 4 mg 07/28/24 04:35 Ondansetron 4 Mg/2 Ml Vial IV Q8H PRN PRN NAUSEA/VOMITING Polyethylene Glycol 0 bottle 07/30/24 16:00 Polyethylene Glycol 3350 Bowel Prep PO 07/30/24 16:01 1600 PRASHANT Sodium Chloride 10 - 40 ml 07/28/24 04:36 07/28/24 16:30 0.9% Saline Lock 10 Ml Syringe IV 10 ml UD PRN Administration SALINE FLUSH PFSH Medical History Diabetes mellitus type 2 in obese Obesity COPD (chronic obstructive pulmonary disease) Perforation of sigmoid colon due to diverticulitis Home Medications ?Medication ?Instructions ?Recorded ?Last Taken ?Type glimepiride 4 mg tablet 4 mg PO BID diabetes 7 07/28/24 History lisinopril 10 mg tablet 10 mg PO DAILY blood pressur e 08/28/16 07/28/24 History oxycodone-acetaminophen 10 mg-325 1 tab PO BID PRN Chavo n 08/28/16 07/27/24 History mg tablet simvastatin 20 mg tablet 20 mg PO QHS cholesterol 12/0607/27/24 History sitagliptin phosphate 100 mg tablet 100 mg PO DAILY di abetes 08/28/16 07/28/24 History albuterol sulfate 90 mcg/actuation 1 - 2 puff inhalati on Q6H PRN PRN 09/03/16 07/27/24 History aerosol inhaler COPD pantoprazole 40 mg tablet,delayed 40 mg PO DAILY GERD 09/03/16 07/28/24 History release ferrous sulfate 325 mg (65 mg 325 mg PO DAILY suppleme nt 05/28/17 07/28/24 History iron) tablet aspirin 81 mg chewable tablet 81 mg PO DAILY heart hea lth 06/22/18 07/28/24 History empagliflozin 10 mg tablet 10 mg PO DAILY 02/04/2312/14 History (Jardiance) levothyroxine 112 mcg tablet 112 mcg PO DAILY thyroid 02/04/23 07/28/24 History ascorbic acid (vitamin C) 500 mg 500 mg PO BID supplem ent 07/28/24 07/28/24 History tablet cholecalciferol (vitamin D3) 50 50 mcg PO Q2D suppleme nt 07/28/24 07/27/24 History mcg (2,000 unit) capsule furosemide 20 mg tablet 20 - 40 mg PO DAILY PRN swel ling 07/28/24 07/27/24 History naproxen 500 mg tablet 500 mg PO BID PRN pain 07/2807/28/24 History tizanidine 4 mg tablet 4 mg PO QHS 07/28/24 5 History Allergy/AdvReac Type Severity Reaction Status Date / Time atropine sulfate (From Allergy Rash Verified 07/27/24 20:31 ) famotidine (From Pepcid) Allergy Rash Verified 07/27/24 20:31 hyoscyamine sulfate (From Allergy Rash Verified 07/27/24 20:31 ) ibuprofen Allergy Rash Verified 07/27/24 20:31 phenobarbital (From ) Allergy Rash Verified 07/27/24 20:31 scopolamine hydrobromide Allergy Rash Verified 07/27/24 20:31 (From ) ketorolac tromethamine (From AdvReac Nausea Verified 07/27/24 20:31 Toradol) rofecoxib (From Vioxx) AdvReac Nausea Verified 07/27/24 20:31 tramadol AdvReac Nausea Verified 07/27/24 20:31 Family History Brother Diabetes Heart disease Hypertension CAD (coronary artery disease) Surgical History S/P appendectomy S/P hysterectomy S/P laparoscopic cholecystectomy s/p right lung lobectomy Social History Smoking Status: Never smoker alcohol intake: never Review of Systems (Anesthesia) ROS Narrative System reviewed and no additional complaints, except as documented. Physical Exam Const alert and oriented x3 Resp normal respiratory effort Cardio regular rate
--- NOTE | 2024-07-29 18:24 | OP.COLON_ITS ---
Patient Name: Anamaria Strickland Procedure Date: 07/29/2024 5:08 PM Date of : 1950 Age: 74 Procedure: Colonoscopy Indications: Hematochezia Providers: Yahir Coles DO Medicines: Monitored Anesthesia Care Patient Profile: This is a 74 year old female. Refer to note in patient chart for documentation of history and physical. Last Colonoscopy: date unknown. Unable to locate last colonoscopy report. Complications: No immediate complications. Procedure: Pre-Anesthesia Assessment: - Prior to the procedure, a History and Physical was performed, and patient medications and allergies were reviewed. The patient is competent. The risks and benefits of the procedure and the sedation options and risks were discussed with the patient. All questions were answered and informed consent was obtained. Patient identification and proposed procedure were verified by the physician in the pre-procedure area. Mental Status Examination: alert and oriented. Airway Examination: normal oropharyngeal airway and neck mobility. Respiratory Examination: clear to auscultation. CV Examination: normal. Prophylactic Antibiotics: The patient does not require prophylactic antibiotics. Prior Anticoagulants: The patient has taken no anticoagulant or antiplatelet agents except for NSAID medication. ASA Grade Assessment: II - A patient with mild systemic disease. After reviewing the risks and benefits, the patient was deemed in satisfactory condition to undergo the procedure. The anesthesia plan was to use monitored anesthesia care (MAC). Immediately prior to administration of medications, the patient was re-assessed for adequacy to receive sedatives. The heart rate, respiratory rate, oxygen saturations, blood pressure, adequacy of pulmonary ventilation, and response to care were monitored throughout the procedure. The physical status of the patient was re-assessed after the procedure. After I obtained informed consent, the scope was passed under direct vision. Throughout the procedure, the patient's blood pressure, pulse, and oxygen saturations were monitored continuously. The was introduced through the anus and advanced to the cecum, identified by appendiceal orifice and ileocecal valve. The colonoscopy was performed without difficulty. The patient tolerated the procedure well. The quality of the bowel preparation was fair except the ascending colon was unsatisfactory. Scope In: 5:33:44 PM Scope Withdrawal Time 0 hours 33 minutes 0 seconds Scope Out: 6:13:24 PM Total Procedure Duration Time 0 hours 39 minutes 40 seconds Findings: The perianal and digital rectal examinations were normal. Multiple small and large-mouthed diverticula were found in the entire colon. Red blood was found in the rectum, in the recto-sigmoid colon, in the sigmoid colon, in the descending colon, at the splenic flexure, in the transverse colon and at the hepatic flexure. Lavage of the area was performed using copious amounts of sterile water, resulting in incomplete clearance with fair visualization. Two semi-pedunculated polyps were found in the sigmoid colon. The polyps were 1 to 2 mm in size. Polypectomy was not attempted due to the patient being hemodynamically unstable. The exam was otherwise without abnormality on direct and retroflexion views. Impression: - Diverticulosis in the entire examined colon. - Blood in the rectum, in the recto-sigmoid colon, in the sigmoid colon, in the descending colon, at the splenic flexure, in the transverse colon and at the hepatic flexure. - Two 1 to 2 mm polyps in the sigmoid colon. Resection not attempted. - The examination was otherwise normal on direct and retroflexion views. - No specimens collected. Recommendation: - Return patient to hospital [facility]ser for ongoing care. - Clear liquid diet. - Continue present medications. - At this time the patient is not bleeding anymore. - Check a stat H&H and transfuse to keep hemoglobin greater than 7 - If she starts bleeding again then she will need to be transferred for interventional radiology - Repeat colonoscopy for surveillance of multiple polyps. Procedure Code(s): --- Professional --- 46926, Colonoscopy, flexible; diagnostic, including collection of specimen(s) by brushing or washing, when performed (separate procedure) CPT copyright 2021 [employer]. All rights reserved. The codes documented in this report are preliminary and upon masticator review may be revised to meet current compliance requirements. Yahir Coles DO 07/29/2024 6:23:05 PM This report has been signed electronically. Number of Addenda: 0 Note Initiated On: 07/29/2024 5:08 PM
--- NOTE | 2024-07-29 18:41 | PCM.POST.ANE ---
Anesthesia: Postop Eval I Current Vital Signs Temperature: 97 F Pulse Rate: 107 Blood Pressure: 110/66 Respiratory Rate: 16 Pulse Ox: 95 Oxygen Delivery Method: Room Air Assessment Airway patent: Yes Spontaneous unlabored respirations: Yes Mental status: Awake and Calm nausea: No Vomiting: No Anesthesia Complication: No Fluid Hydration Crystalloid volume administer (ml): 500 Total IV fluid infused: 500 Progress Note Anesthesia document: Postop Eval 1 completed: Yes
--- NOTE | 2024-07-29 18:49 | NURSING ---
spoke w/ lab-told them pt returning from endo and they can come soon to draw her 1825 hgb
--- NOTE | 2024-07-29 18:49 | PCM.POSTANE2 ---
Anesthesia Postop Eval I Sum Postop Eval Completion status Anesthesia document: Postop Eval 1 completed: Yes Anesthesia Postop Eval I Summary Anesthesia Postop Eval I Summary: Anesthesia Postop Eval I: Assessment Summary Airway patent Yes 07/29/24 18:42 Spontaneous unlabored Yes 07/29/24 18:42 respirations Mental status Awake,Calm 07/29/24 18:42 nausea No 07/29/24 18:42 Vomiting No 07/29/24 18:42 Anesthesia Postop Eval I: Fluid Summary Crystalloid volume administer 500 07/29/24 18:43 (ml) Colloids volume administered ( ml) Blood Product volume administered (ml) Total IV fluid infused 500 07/29/24 18:43 Anesthesia Postop Eval I: Summary Notes Anesthesia Complication No 07/29/24 18:42 Anesthesia Complication Comment: Post-operative progress note Anesthesia: Postop Eval II Evaluation Mental status: Awake and Calm Pain Level: 1 nausea: No Vomiting: No Complications Anesthesia Complication: No
--- NOTE | 2024-07-29 18:51 | NURSING ---
attempt to call endo staff to update them after pt taken down unsucessful x4
--- NOTE | 2024-07-29 19:26 | NURSING ---
lab called again to come draw pt 1825 H&H, they state someone is on the way-expressed to them the urgency of need for pt to have lab checked
[2024-07-29 19:28] LABS: Hematocrit 22.4 % (37-47)
--- NOTE | 2024-07-29 19:32 | NURSING ---
heart rate is 103, pt very drowsy-blood sugar is 196-pt has only had oral go lytely (no nourishment) today, 1800 insulin held at this time-Dr Renteria made aware-pt currently has ivf @ 125-bed exit is on
[2024-07-29 19:58] LABS: Bedside Glucose 197 mg/dL (74-106)
[2024-07-30] VITALS (10 sets, daily range): BP systolic 107–120; BP diastolic 48–81; PULSE 92–107; RESP 15–18; TEMP 36.6–36.9; O2SAT 95–100; BMI 35.6
[2024-07-30] MEDS: Insulin Lispro 100 UNIT/ML INSULN.PEN SC ×5 (00:18→23:30)
[2024-07-30 00:29] LABS: Bedside Glucose 198 mg/dL (74-106)
[2024-07-30 05:14] LABS: Absolute Lymphocyte Count 1.89 X10^3/uL (0.83-4.51); Absolute Neutrophil Count 11.5 X10^3/uL (2.0-7.7); Basophil# 0.04 X10^3/uL; Basophil% 0.3 % (0-1); Eosinophil# 0.01 X10^3/uL; Eosinophils% 0.1 % (0-5); Hematocrit 25.2 % (37-47); Hemoglobin 8.1 g/dL (12.0-15.0); Lymphocyte # 1.89 X10^3/ul (0.83-4.51); Mean Corp Hgb Conc 32.1 g/dL (32-36); Mean Corpuscular Hgb 28.1 pg (27.0-32.0); Mean Corpuscular Volume 87.5 fL (81-99); Monocyte% 4.8 % (0-10); NRBC Flagged by Analyzer 0.3 % (0-5); Neutrophil # 11.52 X10^3/uL (2.7-7.7); Platelet Count 186 K/mm3 (150-450); Red Blood Count 2.88 M/mm3 (4.2-5.4); White Blood Count 14.6 K/mm3 (4.4-11.0)
[2024-07-30 05:41] LABS: Anion Gap 12 (5-15); BUN 12 mg/dL (4-19); Carbon Dioxide 20.3 mmol/L (21.0-32.0); Chloride 112 mmol/L (98-108); EST Glomerular Filtration Rate 94 (>60); Estimated Creatinine Clearance 60.35 ml/min (50-250); Glucose 162 mg/dL (70-99); Potassium 3.4 mmol/L (3.3-5.1); Sodium Level 144 mmol/L (133-145)
[2024-07-30] MEDS: 0.9% Normal Saline (1000mL) 1,000 ML 125 ML IV (06:08)
[2024-07-30] MEDS: 0.9% Saline Lock 10 ML Syringe IV ×2 (06:12→18:55)
[2024-07-30 06:43] LABS: Bedside Glucose 156 mg/dL (74-106)
--- NOTE | 2024-07-30 07:25 | PCM.PN.HOSP ---
Reason for Visit Reason for Visit: Diagnoses Type 2 diabetes mellitus with other specified complication (07/28/24) Obesity, unspecified (07/28/24) Dehydration (07/28/24) Diverticulosis of intestine, part unspecified, without perforation or abscess without bleeding (07/28/24) Gastrointestinal hemorrhage, unspecified (07/28/24) Acute cystitis with hematuria (07/28/24) Objective Data Objective Data Vital Signs: Vital Signs Temp Pulse Resp BP Pulse Ox O2 Del Method O2 Flow Rate 97.8 F 98 18 112/77 96 CPAP 2 07/30/24 02:33 07/30/24 02:33 07/30/24 02:33 07/30/24 02:33 07/30/24 02:33 07/30/24 02:33 07/30/24 02:33 Oxygen Flow Rate (L/min) 2 Oxygen Delivery Method CPAP Weight: 188 lb 11.451 oz Body Mass Index (BMI) 35.6 Intake & Output: Intake and Output for Last 24 Hours 07/28/24 07/29/24 07/30/24 23:59 23:59 23:59 Intake Total 2585.00 / 2585.00 3592.08 / 3592.08 1181.25 / 1181.25 Balance 2585.00 / 2585.00 3592.08 / 3592.08 1181.25 / 1181.25 Lab / Micro Data 07/30/24 04:01 07/30/24 04:01 Labs: Laboratory Results - last 24 hr 07/27/24 22:45: Crossmatch See Detail 07/29/24 07:54: Hgb Cancelled 07/29/24 09:04: Hgb 7.9 L 07/29/24 11:18: POC Glucose 177 H 07/29/24 19:10: Hgb 7.0 L, Hct 22.4 L 07/29/24 19:25: POC Glucose 197 H 07/30/24 00:09: POC Glucose 198 H 07/30/24 04:01: WBC 14.6 H, RBC 2.88 L, Hgb 8.1 L, Hct 25.2 L, MCV 87.5, MCH 28.1, MCHC 32.1, RDW Std Deviation 47.0 H, RDW Coeff of Wen 15.0 H, Plt Count 186, MPV 12.0, Immature Gran % (Auto) 2.800 H, Neut % (Auto) 79.0 H, Lymph % (Auto) 13.0 L, [place] % (Auto) 4.8, Eos % (Auto) 0.1, Baso % (Auto) 0.3, Absolute Neuts (auto) 11.5 H, Absolute Lymphs (auto) 1.89, Nucleated RBC % 0.3, Sodium 144, Potassium 3.4, Chloride 112 H, Carbon Dioxide 20.3 L, Anion Gap 12, BUN 12, Creatinine 0.60 L, Estim Creat Clear Calc 60.35, Est GFR (MDRD) Non-Af 94, BUN/Creatinine Ratio 20.0, Glucose 162 H, Calcium 8.0 07/30/24 06:10: POC Glucose 156 H Micro: Microbiology 07/28/24 00:25 Blood Culture (Wb) - Anticubital Right Blood Culture - Preliminary No growth in 48 hours. 07/28/24 00:05 Blood Culture (Wb) - Anticubital Right Blood Culture - Preliminary No growth in 48 hours. 07/27/24 21:55 Urine, Clean Catch Urine Culture - Preliminary Gram negative robert 07/27/24 01:41 Stool Stool Occult Blood (HOLLI) - Final Occult Blood Positive Radiography Diagnostic Testing: Radiology Impression Abdomen/Pelvis CTA 07/29/24 13:21 IMPRESSION: 1. Scattered calcified atherosclerotic disease of the aorta without dissection or aneurysm. No contrast extravasation to suggest active bleed. 2. Hepatomegaly with fatty infiltration. 3. Colonic diverticulosis without acute diverticulitis. Reading Location: [facility] Physical Exam Narrative Seen and examined Patient had drop in diastolic pressure and pulse pressure. Also drop in hemoglobin and active rectal bleeding therefore was transfused 2 units of PRBC transfusion. IV fluid resuscitation. Was taken for colonoscopy in the evening yesterday. In the morning today she looks better. 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 Physical exam General: Alert, Oriented x3, Cooperative HEENT: Atraumatic, PERRLA, EOMI, Normocephalic. Oral: No Gingival or Mucosal Lesions/ Ulcerations Neck: Supple, No JVD, Negative Carotid Bruits Chest wall/Lungs: Air entry diminished in right lung base . No crepitation/rhonchi Cardiovascular: Regular rate and rhythm, Normal S1,S2, No M/G/R Abdomen: Bowel Sounds Present, Soft, Non Tender, Non-Distended. No palpable mass : No dysuria. No renal angle tenderness. No suprapubic tenderness. Extremities: No edema, Capillary Refill Less than 3 Seconds Skin: No rashes, No breakdown Musculoskeletal: Left hip greater trochanter is tender on deep palpation. No Tenderness to Palpation of other joints or Extremities. ROM of the restricted. Neurological: Cranial nerves II-XII grossly intact, DTR 2+/4. No acute focal neurological deficit. Psych/Mental Status: Normal Affect, Appropriate. Assessment & Plan Assessment/Plan (1) Lower GI bleed: (2) Diverticulosis: (3) Acute cystitis with hematuria: (4) Dehydration: (5) Obesity (BMI 30-39.9): (6) Diabetes mellitus type 2 in obese: PLAN: Plan 74-year-old female admitted with blood in the stool, large amount since 11 AM on day of admission also complained of headache nausea, Lightheadedness/dizziness. History of diverticulitis. Complain of lower abdominal pain 1. Acute lower GI bleed with acute blood loss anemia: Patient is being admitted to PCU. GI consulted. Patient admitted with hemoglobin 11.7 decreased to 9.9. No indication of PRBC transfusion CT abdomen/pelvis shows no evidence of acute GI bleed, aortic dissection thrombosis or aneurysm. Colonic diverticulosis without diverticulitis. Hepatomegaly 07/29: Acute blood loss anemia: Hemoglobin dropped from 11.7 g to 7.9 g%. Iron infusion done. Check H&H at 8 PM tonight and if hemoglobin less than 7 g will need PRBC transfusion. 07/30: Yesterday afternoon/evening, her blood pressure was low normal, 95/49, diastolic dropping to 40 to 60 mmHg with increased pulse pressure and tachycardia heart rate 110/min. Colon prep was stopped and patient was restaged with IV fluid bolus and then taken for colonoscopy. Repeat hemoglobin shows 7.0 and patient was given 2 units of PRBC transfusion. Colonoscopy finding as mentioned below Colonoscopy 07/29/2024 .Impression: - Diverticulosis in the entire examined colon. - Blood in the rectum, in the recto-sigmoid colon, in the sigmoid colon, in the descending colon, at the splenic flexure, in the transverse colon and at the hepatic flexure. - Two 1 to 2 mm polyps in the sigmoid colon. Resection not attempted. - The examination was otherwise normal on direct and retroflexion views. - No specimens collected. Recommendation: - Return patient to hospital bowser for ongoing care. - Clear liquid diet. - Continue present medications. - At this time the patient is not bleeding anymore. - Check a stat H&H and transfuse to keep hemoglobin greater than 7 - If she starts bleeding again then she will need to be transferred for interventional radiology - Repeat colonoscopy for surveillance of multiple polyps Patient had 2 bowel movement mixed with dark blood in urine also dark-colored/tarry.. Repeat H&H 8.1 IV fluid resuscitation going on./25.2%. IV fluid ordered. IV iron ordered. Diet advanced to full liquid. Monitor closely. 2. Abnormal UA with severe Leukocytosis of 20.1K present on admission: Patient denies burning micturition, increased frequency or urgency. UA WBC 25-50 cells, RBC 5-10 nitrite negative. Urine blood culture pending. Empirically on IV ceftriaxone 07/29: Prelim urine culture shows GNR 11,000-25,000 colonies. Discontinue antibiotic. UTI ruled out 3. Dehydration evidenced by elevated BUN/creatinine ratio of 25.3 present on admission: Volume resuscitation 4. Obesity; BMI of 35 KG per square meter weight loss. 5. DM-2; unknown control on sitagliptin, empagliflozin and glimepiride twice daily. A1c 7.8% 6. Essential hypertension; on lisinopril and furosemide daily as needed - Hold oral antihypertensives. Give IV hydralazine as needed for systolic blood pressure greater than 160 mmHg. 7. Hyperlipidemia; on simvastatin - Hold statin 8. Hypothyroidism; on levothyroxine - Restart oral levothyroxine after colonoscopy. TSH normal. 9. History of tobacco abuse; with subsequent COPD on as needed albuterol -on as needed albuterol nebulization. No acute exacerbation 11. Acute on chronic EVONNE; on ferrous sulfate -on IV iron infusion as mentioned above 16. GERD; on pantoprazole - Patient started on PPI IV for #1. 17. OA; on naproxen daily and as needed oxycodone-acetaminophen twice daily as needed -no NSAIDs. 18. DVT prophylaxis - SCD's. Pharmacological prophylaxis contraindicated. Charges/Coding Visit Charges Inpatient E&M: 80727 Subs Hosp L2
[2024-07-30] MEDS: Pantoprazole Sodium 40 MG in 0.9% Normal Saline (100mL MB+) 100 ML 330 MG IV ×2 (07:50→20:31)
[2024-07-30] MEDS: KCL 40mEq in 0.9% NS 40 MEQ/1,000 ML IV.SOLN 125 MEQ IV (08:38)
[2024-07-30] MEDS: Potassium Chloride Oral Tablet 20 MEQ 40 MEQ PO (11:46)
[2024-07-30 12:09] LABS: Bedside Glucose 212 mg/dL (74-106)
[2024-07-30] MEDS: Sodium Ferric Gluconat/Sucrose 250 MG in 0.9% Normal Saline (250mL Bag) 250 ML 135 MG IV (12:19)
[2024-07-30 17:25] LABS: Bedside Glucose 267 mg/dL (74-106)
[2024-07-30] MEDS: oxyCODONE 5 MG Tablet PO ×2 (18:10→23:27)
[2024-07-30] MEDS: 0.9% Normal Saline (250mL Bag) 250 ML 15 ML IV (20:36)
[2024-07-30 23:53] LABS: Bedside Glucose 165 mg/dL (74-106)
[2024-07-31] VITALS (11 sets, daily range): BP systolic 102–120; BP diastolic 55–71; PULSE 73–91; RESP 14–16; TEMP 36–36.8; O2SAT 95–99; BMI 36.1
[2024-07-31] MEDS: Insulin Lispro 100 UNIT/ML INSULN.PEN SC ×3 (05:13→16:56)
[2024-07-31 05:35] LABS: Hemoglobin 6.9 g/dL (12.0-15.0)
[2024-07-31 05:39] LABS: Bedside Glucose 152 mg/dL (74-106)
[2024-07-31] MEDS: Pantoprazole Sodium 40 MG in 0.9% Normal Saline (100mL MB+) 100 ML 330 MG IV (08:04)
[2024-07-31] MEDS: 0.9% Saline Lock 10 ML Syringe IV (08:05)
[2024-07-31] MEDS: Potassium Chloride Oral Tablet 20 MEQ 40 MEQ PO (08:05)
--- NOTE | 2024-07-31 08:09 | ANES.CONFIRM ---
Anesthesia: Confirm Documents Multiple Procedures on Account (2) Confirmed Documents: Yes
[2024-07-31 08:38] LABS: Hematocrit 22.3 % (37-47); Hemoglobin 7.2 g/dL (12.0-15.0)
[2024-07-31] MEDS: Lactated Ringers 500 ML 999 ML IV (08:44)
[2024-07-31 12:47] LABS: Bedside Glucose 232 mg/dL (74-106)
[2024-07-31 14:12] LABS: Hematocrit 26.8 % (37-47); Hemoglobin 8.7 g/dL (12.0-15.0)
--- NOTE | 2024-07-31 15:31 | DCINST_ITS ---
Discharge Instructions Diet Discharge Diet: No restrictions and Light diet - advance as tolerated DC O2, CPAP, BIPAP needs Home O2 Discharge instructions: No Dressing / Incision Discharge Activity: Return to Normal Activity Weight Bearing Status: Weight bearing as tolerated Dressing / Incision Call your doctor if you observe: Fever of 101 or Higher, Coldness, Increased Pain, Numbness or Tingling, Change in Color, Inability to urinate, Inability to have a bowel movement, Shortness of breath, Dizziness, Fainting spells, Swelling in the ankles, Chest pain, Prolonged hiccupping, Increased palpitations (irregular heartbeat) and Calf discomfort Follow Up Care When: IN 2 WEEKS Test Results: Test results from this visit will be discussed in further detail at your follow- up appointment, if applicable. Discharge Plan Admission Admit Date/Time: 07/28/24 04:14 Primary Reason for Your Visit: Lower GI bleed Attending Provider: Barry Goel Primary Care Provider: Luis Molina Consulting Providers: Maurice Saravia Discharge Orders/Prescriptions Prescriptions: New potassium chloride 20 mEq Tablet,Er Particles/Crystals 20 meq PO DAILYCM 30 Days Qty: 30 0RF Continued oxycodone-acetaminophen 1 EACH tablet 1 tab PO BID PRN (Reason: Pain) simvastatin 20 MG tablet 20 mg PO QHS Patient Comments: TAKE ONE TABLET BY MOUTH EVERY NIGHT AT BEDTIME glimepiride 4 MG tablet 4 mg PO BID Patient Comments: TAKE ONE TABLET BY MOUTH TWICE DAILY WITH MEALS sitagliptin phosphate 100 MG tablet 100 mg PO DAILY Patient Comments: TAKE ONE TABLET BY MOUTH ONCE DAILY pantoprazole 40 MG tablet 40 mg PO DAILY albuterol sulfate 1 PUFF inhaler 1 - 2 puff inhalation Q6H PRN PRN (Reason: COPD) ferrous sulfate 325 MG tablet 325 mg PO DAILY levothyroxine 112 mcg tablet 112 mcg PO DAILY Patient Comments: take 1 tablet by mouth once daily Jardiance 10 mg tablet 10 mg PO DAILY Patient Comments: take 1 tablet by mouth every morning tizanidine 4 mg tablet 4 mg PO QHS ascorbic acid (vitamin C) 500 mg tablet 500 mg PO BID cholecalciferol (vitamin D3) 50 mcg (2,000 unit) capsule 50 mcg PO Q2D furosemide 20 mg tablet 20 - 40 mg PO DAILY PRN (Reason: swelling) Held lisinopril 10 MG tablet 10 mg PO DAILY Hold Instructions: Hold for SBP less than 130 mmHg Patient Comments: aspirin 81 MG tablet,chewable 81 mg PO DAILY Hold Instructions: Hold for 7 days. Discontinued naproxen 500 mg tablet 500 mg PO BID PRN Referrals / Follow Up: Luis Molina DO [Primary Care Provider] - FriendYahir DO [Med Staff - Active Staff] - Within 1 Month Disposition Disposition (needs filled in before D/C Order can be placed): Home, Self Care
--- NOTE | 2024-07-31 16:35 | PCM.PN.BLA ---
Progress Note Patient has not seen any signs of GI bleeding today. I was alerted that her hemoglobin was down and I requested that she get transfused 2 units of packed red blood cells. She had been on a clear liquid diet. Physical Exam Narrative Physical exam General: Alert, Oriented x3, Cooperative HEENT: Atraumatic, PERRLA, EOMI, Normocephalic. Oral: No Gingival or Mucosal Lesions/ Ulcerations Neck: Supple, No JVD, Negative Carotid Bruits Chest wall/Lungs: Air entry diminished in right lung base . No crepitation/rhonchi Cardiovascular: Regular rate and rhythm, Normal S1,S2, No M/G/R Abdomen: Bowel Sounds Present, Soft, Non Tender, Non-Distended : No dysuria. No renal angle tenderness. No suprapubic tenderness. Extremities: No edema, Capillary Refill Less than 3 Seconds Skin: No rashes, No breakdown Musculoskeletal: Left hip greater trochanter is tender on deep palpation. No Tenderness to Palpation of other joints or Extremities. ROM of the restricted. Neurological: Cranial nerves II-XII grossly intact, DTR 2+/4. No acute focal neurological deficit. Psych/Mental Status: Normal Affect, Appropriate. Assessment & Plan Assessment/Plan (1) Lower GI bleed: (2) Diverticulosis: (3) GI (gastrointestinal bleed): PLAN: Findings: The perianal and digital rectal examinations were normal. Multiple small and large-mouthed diverticula were found in the entire colon. Red blood was found in the rectum, in the recto-sigmoid colon, in the sigmoid colon, in the descending colon, at the splenic flexure, in the transverse colon and at the hepatic flexure. Lavage of the area was performed using copious amounts of sterile water, resulting in incomplete clearance with fair visualization. Two semi-pedunculated polyps were found in the sigmoid colon. The polyps were 1 to 2 mm in size. Polypectomy was not attempted due to the patient being hemodynamically unstable. The exam was otherwise without abnormality on direct and retroflexion views. Impression: - Diverticulosis in the entire examined colon. - Blood in the rectum, in the recto-sigmoid colon, in the sigmoid colon, in the descending colon, at the splenic flexure, in the transverse colon and at the hepatic flexure. - Two 1 to 2 mm polyps in the sigmoid colon. Resection not attempted. - The examination was otherwise normal on direct and retroflexion views. - No specimens collected. Recommendation: - Return patient to hospital bowser for ongoing care. - Clear liquid diet. - Continue present medications. - At this time the patient is not bleeding anymore. - Check a stat H&H and transfuse to keep hemoglobin greater than 7 - If she starts bleeding again then she will need to be transferred for interventional radiology - Repeat colonoscopy for surveillance of multiple polyps. 07/31/2024- patient's hgb is up to 8.7 after transfusion of 2 units of bright red blood cells. Hopefully with iron transfusion she will continue to stay stable And her hemoglobin will continue to go up. Continue to monitor and continue clear liquid diet until tomorrow
--- NOTE | 2024-07-31 16:41 | PCM.DC.SUM ---
Providers Date of Admission: 07/28/24 Date of Discharge: 07/31/24 Primary Care Physician: Dr. Luis Molina, DO Consultations 07/28/24 04:35 Consult: Gastroenterology Routine Consulting Provider: [facility] Reason for Consult: LGI bleed around stools and diverticulosis. EMERGENT Consult: No MD Notified: Yes Date Notified: 07/28/24 Time Notified: 04:17 Method of Notification: ED Physician Initiated Reason For Visit: LGIB, DIVERTICULOSIS, UTI & DEHYDRATION Diagnosis Discharge Diagnosis (1) Lower GI bleed: Status: Acute Code(s): K92.2 - Gastrointestinal hemorrhage, unspecified (2) Diverticulosis: Status: Acute Code(s): K57.90 - Diverticulosis of intestine, part unspecified, without perforation or abscess without bleeding (3) GI (gastrointestinal bleed): Status: Acute Code(s): K92.2 - Gastrointestinal hemorrhage, unspecified Plan 74-year-old female admitted with blood in the stool, large amount since 11 AM on day of admission also complained of headache nausea, Lightheadedness/dizziness. History of diverticulitis. Complain of lower abdominal pain 1. Acute lower GI bleed with acute blood loss anemia: Patient is being admitted to PCU. GI consulted. Patient admitted with hemoglobin 11.7 decreased to 9.9. No indication of PRBC transfusion CT abdomen/pelvis shows no evidence of acute GI bleed, aortic dissection thrombosis or aneurysm. Colonic diverticulosis without diverticulitis. Hepatomegaly 07/29: Acute blood loss anemia: Hemoglobin dropped from 11.7 g to 7.9 g%. Iron infusion done. Check H&H at 8 PM tonight and if hemoglobin less than 7 g will need PRBC transfusion. 07/30: Yesterday afternoon/evening, her blood pressure was low normal, 95/49, diastolic dropping to 40 to 60 mmHg with increased pulse pressure and tachycardia heart rate 110/min. Colon prep was stopped and patient was restaged with IV fluid bolus and then taken for colonoscopy. Repeat hemoglobin shows 7.0 and patient was given 2 units of PRBC transfusion. Colonoscopy finding as mentioned below Colonoscopy 07/29/2024 .Impression: - Diverticulosis in the entire examined colon. - Blood in the rectum, in the recto-sigmoid colon, in the sigmoid colon, in the descending colon, at the splenic flexure, in the transverse colon and at the hepatic flexure. - Two 1 to 2 mm polyps in the sigmoid colon. Resection not attempted. - The examination was otherwise normal on direct and retroflexion views. - No specimens collected. Recommendation: - Return patient to hospital [facility] for ongoing care. - Clear liquid diet. - Continue present medications. - At this time the patient is not bleeding anymore. - Check a stat H&H and transfuse to keep hemoglobin greater than 7 - If she starts bleeding again then she will need to be transferred for interventional radiology - Repeat colonoscopy for surveillance of multiple polyps Patient had 2 bowel movement mixed with dark blood in urine also dark-colored/tarry.. Repeat H&H 8.1 IV fluid resuscitation going on./25.2%. IV fluid ordered. IV iron ordered. Diet advanced to full liquid. Monitor closely. 07/31: Patient hemoglobin was low 6.9, repeated and it came as 7.2 and therefore point of PRBC transfused. Hemoglobin came up to 8.7. Patient is discharged. Patient already had triple PRBC transfusion and iron infusion earlier this hospital course. Patient is on ferrous sulfate, vitamin C and pantoprazole. Vies to continue. Hold baby aspirin for 1 week. Follow-up in GI office with Dr. Coles in 1 month. Follow-up with PCP in 1 week with repeat CBC 2. Abnormal UA with severe Leukocytosis of 20.1K present on admission: Patient denies burning micturition, increased frequency or urgency. UA WBC 25-50 cells, RBC 5-10 nitrite negative. Urine blood culture pending. Empirically on IV ceftriaxone 07/29: Prelim urine culture shows GNR 11,000-25,000 colonies. Discontinue antibiotic. UTI ruled out 3. Dehydration evidenced by elevated BUN/creatinine ratio of 25.3 present on admission: Volume resuscitation 4. Obesity; BMI of 35 KG per square meter weight loss. 5. DM-2; unknown control on sitagliptin, empagliflozin and glimepiride twice daily. A1c 7.8% 6. Essential hypertension; on lisinopril and furosemide daily as needed - Hold oral antihypertensives. Give IV hydralazine as needed for systolic blood pressure greater than 160 mmHg. 7. Hyperlipidemia; on simvastatin - Hold statin 8. Hypothyroidism; on levothyroxine - Restart oral levothyroxine after colonoscopy. TSH normal. 9. History of tobacco abuse; with subsequent COPD on as needed albuterol -on as needed albuterol nebulization. No acute exacerbation 11. Acute on chronic EVONNE; on ferrous sulfate -on IV iron infusion as mentioned above 16. GERD; on pantoprazole - Patient started on PPI IV for #1. 17. OA; on naproxen daily and as needed oxycodone-acetaminophen twice daily as needed -no NSAIDs. 18. DVT prophylaxis - SCD's. Pharmacological prophylaxis contraindicated. Discharge medication reconciliation done. Discharge follow-up instructions completed. Discharge process discussed with the patient and all questions were answered to patient's satisfaction. Follow with PCP in 1 to 2 weeks Total time spent, exact 35 minutes on discharge meds reconciliation, examination, coordination of care with nurses and ancillary staff, review of imaging and blood test and discussion with the patient on follow-up instructions. Medications at Discharge Home Medications glimepiride 4 mg tablet 4 mg PO BID diabetes 08/28/16 lisinopril 10 mg tablet 10 mg PO DAILY blood pressure 08/28/16 Held on 07/31/24. Instructions: Hold for SBP less than 130 mmHg oxycodone-acetaminophen 10 mg-325 mg tablet 1 tab PO BID PRN Pain 08/28/16 simvastatin 20 mg tablet 20 mg PO QHS cholesterol 08/28/16 sitagliptin phosphate 100 mg tablet 100 mg PO DAILY diabetes 08/28/16 albuterol sulfate 90 mcg/actuation aerosol inhaler 1 - 2 puff inhalation Q6H PRN PRN COPD 09/03/16 pantoprazole 40 mg tablet,delayed release 40 mg PO DAILY GERD 09/03/16 ferrous sulfate 325 mg (65 mg iron) tablet 325 mg PO DAILY supplement 05/28/17 aspirin 81 mg chewable tablet 81 mg PO DAILY heart health 06/22/18 Held on 07/31/24. Instructions: Hold for 7 days. empagliflozin 10 mg tablet (Jardiance) 10 mg PO DAILY 02/04/23 levothyroxine 112 mcg tablet 112 mcg PO DAILY thyroid 02/04/23 ascorbic acid (vitamin C) 500 mg tablet 500 mg PO BID supplement 07/28/24 cholecalciferol (vitamin D3) 50 mcg (2,000 unit) capsule 50 mcg PO Q2D supplement 07/28/24 furosemide 20 mg tablet 20 - 40 mg PO DAILY PRN swelling 07/28/24 tizanidine 4 mg tablet 4 mg PO QHS 07/28/24 potassium chloride 20 mEq tablet,extended release(part/cryst) 20 meq PO DAILYCM 30 days #30 tabs 07/31/24 Physical Exam Narrative Seen and examined Patient did well with regards to blood pressure although her BP is lower side 106/55-120/71. Continue holding lisinopril. No major bleed/rectal bleed yesterday night. Had BM, brownish in color. 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 Physical exam General: Alert, Oriented x3, Cooperative HEENT: Atraumatic, PERRLA, EOMI, Normocephalic. Oral: No Gingival or Mucosal Lesions/ Ulcerations Neck: Supple, No JVD, Negative Carotid Bruits Chest wall/Lungs: Air entry diminished in right lung base . No crepitation/rhonchi Cardiovascular: Regular rate and rhythm, Normal S1,S2, No M/G/R Abdomen: Bowel Sounds Present, Soft, Non Tender, Non-Distended. No palpable mass : No dysuria. No renal angle tenderness. No suprapubic tenderness. Extremities: No edema, Capillary Refill Less than 3 Seconds Skin: No rashes, No breakdown Musculoskeletal: Left hip greater trochanter is tender on deep palpation. No Tenderness to Palpation of other joints or Extremities. ROM of the restricted. Neurological: Cranial nerves II-XII grossly intact, DTR 2+/4. No acute focal neurological deficit. Psych/Mental Status: Normal Affect, Appropriate. Weight / BMI Weight Weight: 191 lb 9.307 oz Body Mass Index (BMI) 36.1 ABG / Lab / Microbiology Data 07/31/24 13:50 07/30/24 04:01 Laboratory: Laboratory Results - last 24 hr 07/29/24 07:45: Blood Type O POSITIVE, Antibody Screen NEGATIVE, Crossmatch See Detail 07/30/24 16:58: POC Glucose 267 H 07/30/24 23:29: POC Glucose 165 H 07/31/24 04:51: Hgb 6.9 L, Hct 22.0 L 07/31/24 05:12: POC Glucose 152 H 07/31/24 08:23: Hgb 7.2 L, Hct 22.3 L 07/31/24 12:14: POC Glucose 232 H 07/31/24 13:50: Hgb 8.7 L, Hct 26.8 L Microbiology: Microbiology 07/27/24 21:55 Urine, Clean Catch Urine Culture - Final Escherichia coli Pseudomonas aeruginosa 07/28/24 00:25 Blood Culture (Wb) - Anticubital Right Blood Culture - Preliminary No growth in 48 hours. 07/28/24 00:05 Blood Culture (Wb) - Anticubital Right Blood Culture - Preliminary No growth in 48 hours. 07/27/24 01:41 Stool Stool Occult Blood (HOLLI) - Final Occult Blood Positive D/C Instructions Discharge Diet: No restrictions and Light diet - advance as tolerated Weight Bearing Status: Weight bearing as tolerated Call your doctor if you observe: Fever of 101 or Higher, Coldness, Increased Pain, Numbness or Tingling, Change in Color, Inability to urinate, Inability to have a bowel movement, Shortness of breath, Dizziness, Fainting spells, Swelling in the ankles, Chest pain, Prolonged hiccupping, Increased palpitations (irregular heartbeat) and Calf discomfort DC O2, CPAP, BIPAP Needs Home O2 Discharge instructions: No When: IN 2 WEEKS Meaningful Use Info Meaningful Use Meaningful Use Diagnoses (Choose all that apply): None applicable Ischemic Stroke Statin Dosing Therapy Reference: STATIN DOSE THERAPY REFERENCE: * Patients > 75 years receive moderate or high dose statin therapy. * Patients 75 years or YOUNGER should receive HIGH intensity statin dose unless contraindicated. You will be required to document reason for non-treatment if statin daily dose does not meet guidelines. HIGH DOSE STATIN THERAPY DAILY Atorvastatin > than or = to 40 mg Rosuvastatin > than or = to 20 mg Amlodipine + Atorvastatin > than or = to 2.5/40 mg Ezetimibe + Simvastatin 10/80 mg Simvastatin 80mg Discharge Plan Admission Admit Date/Time: 07/28/24 04:14 Primary Reason for Your Visit: Lower GI bleed Attending Provider: Barry Goel Primary Care Provider: Luis Molina Consulting Providers: Maurice Saravia Discharge Orders/Prescriptions Prescriptions: New potassium chloride 20 mEq Tablet,Er Particles/Crystals 20 meq PO DAILYCM 30 Days Qty: 30 0RF Continued oxycodone-acetaminophen 1 EACH tablet 1 tab PO BID PRN (Reason: Pain) simvastatin 20 MG tablet 20 mg PO QHS Patient Comments: TAKE ONE TABLET BY MOUTH EVERY NIGHT AT BEDTIME glimepiride 4 MG tablet 4 mg PO BID Patient Comments: TAKE ONE TABLET BY MOUTH TWICE DAILY WITH MEALS sitagliptin phosphate 100 MG tablet 100 mg PO DAILY Patient Comments: TAKE ONE TABLET BY MOUTH ONCE DAILY pantoprazole 40 MG tablet 40 mg PO DAILY albuterol sulfate 1 PUFF inhaler 1 - 2 puff inhalation Q6H PRN PRN (Reason: COPD) ferrous sulfate 325 MG tablet 325 mg PO DAILY levothyroxine 112 mcg tablet 112 mcg PO DAILY Patient Comments: take 1 tablet by mouth once daily Jardiance 10 mg tablet 10 mg PO DAILY Patient Comments: take 1 tablet by mouth every morning tizanidine 4 mg tablet 4 mg PO QHS ascorbic acid (vitamin C) 500 mg tablet 500 mg PO BID cholecalciferol (vitamin D3) 50 mcg (2,000 unit) capsule 50 mcg PO Q2D furosemide 20 mg tablet 20 - 40 mg PO DAILY PRN (Reason: swelling) Held lisinopril 10 MG tablet 10 mg PO DAILY Hold Instructions: Hold for SBP less than 130 mmHg Patient Comments: aspirin 81 MG tablet,chewable 81 mg PO DAILY Hold Instructions: Hold for 7 days. Discontinued naproxen 500 mg tablet 500 mg PO BID PRN Referrals / Follow Up: Luis Molina DO [Primary Care Provider] - FriendYahir DO [Med Staff - Active Staff] - Within 1 Month Disposition Disposition (needs filled in before D/C Order can be placed): Home, Self Care Charges/Coding Visit Charges Inpatient E&M: 80795 Disch Hosp >30min
[2024-07-31 16:44] LABS: Bedside Glucose 222 mg/dL (74-106)
--- NOTE | 2024-07-31 16:49 | CASEMGMT ---
Patient has order for discharge. RN CM in to discuss needs at discharge. Patient denies needs or help at discharge. Patient had no further questions or concerns.
--- NOTE | 2024-07-31 17:08 | PHA.DC.MC.R ---
Pharmacy [facility] has performed discharge medication reconciliation and counseling for this patient. The patient's discharge medication list was reviewed for discrepancies and discrepancies were resolved. The patient was counseled on the following discharge medications and changes in medications for homegoing were reviewed. The Reason for Use, instructions for use, and potential side effects were reviewed for all new medications. The patient's questions regarding all of their medications were answered. 1. Potassium 20 mEq PO daily The patient was able to verbally demonstrate an understanding of their discharge medications. Medications at Discharge Home Medications glimepiride 4 mg tablet 4 mg PO BID diabetes 08/28/16 lisinopril 10 mg tablet 10 mg PO DAILY blood pressure 08/28/16 Held on 07/31/24. Instructions: Hold for SBP less than 130 mmHg oxycodone-acetaminophen 10 mg-325 mg tablet 1 tab PO BID PRN Pain 08/28/16 simvastatin 20 mg tablet 20 mg PO QHS cholesterol 08/28/16 sitagliptin phosphate 100 mg tablet 100 mg PO DAILY diabetes 08/28/16 albuterol sulfate 90 mcg/actuation aerosol inhaler 1 - 2 puff inhalation Q6H PRN PRN COPD 09/03/16 pantoprazole 40 mg tablet,delayed release 40 mg PO DAILY GERD 09/03/16 ferrous sulfate 325 mg (65 mg iron) tablet 325 mg PO DAILY supplement 05/28/17 aspirin 81 mg chewable tablet 81 mg PO DAILY heart health 06/22/18 Held on 07/31/24. Instructions: Hold for 7 days. empagliflozin 10 mg tablet (Jardiance) 10 mg PO DAILY 02/04/23 levothyroxine 112 mcg tablet 112 mcg PO DAILY thyroid 02/04/23 ascorbic acid (vitamin C) 500 mg tablet 500 mg PO BID supplement 07/28/24 cholecalciferol (vitamin D3) 50 mcg (2,000 unit) capsule 50 mcg PO Q2D supplement 07/28/24 furosemide 20 mg tablet 20 - 40 mg PO DAILY PRN swelling 07/28/24 tizanidine 4 mg tablet 4 mg PO QHS 07/28/24 potassium chloride 20 mEq tablet,extended release(part/cryst) 20 meq PO DAILYCM 30 days #30 tabs 07/31/24
== END 2024-07-31 17:50 | disposition home or self-care (01) | DRG 378 ==
LOC: ED 07-28 03:49 → PCU 07-28 04:09
PROVIDERS: Internal Medicine Gastroenterology; Admitting Provider Internal Medicine; Emergency Provider Emergency Medicine; PCP Student in an Organized Health Care Education/Training Program; Visit Provider Internal Medicine
PROC: 0DJ08ZZ Inspection of Upper Intestinal Tract, Via Natural or Artificial Opening Endoscopic (ICD-10-PCS; CPT 43235; principal; 2024-07-28 15:25)
PROC: 0DJD8ZZ Inspection of Lower Intestinal Tract, Via Natural or Artificial Opening Endoscopic (ICD-10-PCS; CPT 45378; principal; 2024-07-29 17:00)
DX: K92.2 Gastrointestinal hemorrhage, unspecified (principal); D62 Acute posthemorrhagic anemia; N30.01 Acute cystitis with hematuria; D50.9 Iron deficiency anemia, unspecified; E11.9 Type 2 diabetes mellitus without complications; E03.9 Hypothyroidism, unspecified; D72.829 Elevated white blood cell count, unspecified; J44.9 Chronic obstructive pulmonary disease, unspecified; I10 Essential (primary) hypertension; E66.9 Obesity, unspecified; M19.90 Unspecified osteoarthritis, unspecified site; E78.5 Hyperlipidemia, unspecified; K21.9 Gastro-esophageal reflux disease without esophagitis; E86.0 Dehydration; K63.5 Polyp of colon; M62.838 Other muscle spasm; Z87.891 Personal history of nicotine dependence; Z79.84 Long term (current) use of oral hypoglycemic drugs; Z79.890 Hormone replacement therapy; Z90.710 Acquired absence of both cervix and uterus; Z68.35 Body mass index [BMI] 35.0-35.9, adult; Z79.899 Other long term (current) drug therapy; Z90.49 Acquired absence of other specified parts of digestive tract; Z79.1 Long term (current) use of non-steroidal anti-inflammatories (NSAID)
CPT/HCPCS: 36415; 74174; 80048; 80053; 81001; 82274; 82962; 83036; 83605; 83690; 83735; 84100; 84145; 84443; 85014; 85018; 85025; 85610; 85730; 86850; 86900; 86901; 87040; 87077; 87086; 87088; 87184; 87186; 88305; 88342; 94668; 97116; 97161; 97530; 99285; P9016; Q9967; A4216; J2405; J2916

== ENCOUNTER → 2024-09-01 | Outpatient (CLI) | payer MEDICARE, MEDICAID, SELFPAY ==
[2024-09-01 10:25] LABS: Absolute Lymphocyte Count 2.42 X10^3/uL (0.83-4.51); Absolute Neutrophil Count 6.8 X10^3/uL (2.0-7.7); Basophil# 0.03 X10^3/uL; Basophil% 0.3 % (0-1); Eosinophil# 1.12 X10^3/uL; Hematocrit 38.2 % (37-47); Hemoglobin 12.3 g/dL (12.0-15.0); Lymphocyte # 2.42 X10^3/ul (0.83-4.51); Lymphocyte % 21.6 % (19-41); Mean Corp Hgb Conc 32.2 g/dL (32-36); Mean Corpuscular Hgb 28.7 pg (27.0-32.0); Mean Corpuscular Volume 89.3 fL (81-99); Mean Platelet Vol. 11.1 fl (6.2-12.0); Monocyte# 0.77 X10^3/uL; Monocyte% 6.9 % (0-10); NRBC Flagged by Analyzer 0 % (0-5); Neutrophil # 6.82 X10^3/uL (2.7-7.7); Neutrophil % 60.8 % (47-70); Platelet Count 232 K/mm3 (150-450); RBC Distribution Width CV 15.2 % (11.6-14.6); RBC Distribution Width SD 49.1 fl (35.1-43.9); RET-HE 29.2 pg (30-35); Red Blood Count 4.28 M/mm3 (4.2-5.4); Reticulocyte Count 1.87 % (0.5-1.5); White Blood Count 11.2 K/mm3 (4.4-11.0)
[2024-09-01 11:24] LABS: Ferritin 253 ng/mL (22-378); Iron 39 ug/dL (50-170); LDH 149 U/L (84-246); Thyroid Stim Hormone (TSH) 0.243 uIU/mL (0.300-4.200)
[2024-09-05 14:09] LABS: Albumin 3.8 g/dL (2.9-4.4); Alpha-1-Globulins 0.3 g/dL (0.0-0.4); Endomysial Antibody IgA Negative (Negative); Gamma Globulin 1.4 g/dL (0.4-1.8); Haptoglobin 255 mg/dL (42-346); Immunoglobulin A 225 mg/dL (64-422); Immunoglobulin G 1464 mg/dL (586-1602); Immunoglobulin M 135 mg/dL (26-217); PROEL- TOTAL PROTEIN 7.5 g/dL (6.0-8.5); t-Transglutaminase IgA <2 U/mL (0-3)
== END | disposition home or self-care (01) ==
LOC: LAB 10:03
PROVIDERS: PCP Student in an Organized Health Care Education/Training Program; Referring Provider Internal Medicine Gastroenterology; Visit Provider Internal Medicine Gastroenterology
DX: D64.9 Anemia, unspecified (principal)
CPT/HCPCS: 36415; 82728; 82784; 83010; 83516; 83540; 83615; 84165; 84443; 85025; 85045; 86255; 86334